=== PATIENT | male | born 1945 | race Caucasian/White ===

== ENCOUNTER → 2017-12-29 10:43 | Outpatient (CLI) | payer OTHER, SELFPAY ==
--- NOTE | 2017-12-29 | DI.RAD.S_ITS ---
PROCEDURE: XR LUMBAR SPINE MIN 4V INDICATIONS: BACK PAIN TECHNIQUE: 5 views of the lumbar spine were acquired, including flexion and extension views. COMPARISON: Former[facility], MR, L-SPINE WITHOUT CONTRAST, 10/22/2016, 16:26. [facility], CR, L-SPINE 2-3 VIEWS, 12/27/2016, 10:26. [facility], CR, L-SPINE 2-3 VIEWS, 01/11/2017, 14:56. Former[facility], CR, L-SPINE 2-3 VIEWS, 02/24/2017, 10:25. Former[facility], CR, L-SPINE 2-3 VIEWS, 07/04/2017, 13:42. FINDINGS: Bones: There is moderate dextroconvex lumbar scoliosis. Postoperative changes are seen, with right-sided pedicle screws at the L4 and L5 levels. There is a vertical fixation rudy. A disc spacer is also seen. No findings of hardware failure or hardware loosening are seen. No displaced fractures are seen. There is moderate to severe disc space narrowing seen at each lumbar level. Endplate irregularity and sclerosis are seen, which are most prominent at the L3-L4 level. Soft tissues: Overlying bowel gas pattern is normal. No suspicious soft tissue calcifications. Atherosclerotic calcification is noted. Flexion/extension: There is limited range of motion, with preserved normal alignment. IMPRESSION: Limited range of motion, without abnormal subluxation. Unremarkable L4-L5 postoperative change. Dextroconvex scoliosis and degenerative changes. Dictated by: Ki Gilliland M.D. on 12/29/2017 at 15:14 Approved by: Ki Gilliland M.D. on 12/29/2017 at 15:20
== END ==
PROVIDERS: Family Provider Family Medicine; PCP Family Medicine; Visit Provider Dentist Orthodontics and Dentofacial Orthopedics
DX: M43.16 Spondylolisthesis, lumbar region (principal); M41.9 Scoliosis, unspecified; Z98.1 Arthrodesis status
CPT/HCPCS: 36415; 72110; 82565; 84520

== ENCOUNTER → 2017-12-29 15:11 | Outpatient (CLI) | payer OTHER, SELFPAY ==
[2017-12-29 16:50] LABS: BUN Creatinine Ratio 10.8 (6-22); Blood Urea Nitrogen 13 mg/dL (9-20); Estimated Glomerular Filt Rate 59.3 mL/min (>60)
== END ==
PROVIDERS: Family Provider Family Medicine; PCP Family Medicine; Visit Provider Physical Medicine & Rehabilitation
DX: Z98.1 Arthrodesis status (principal)
CPT/HCPCS: 36415; 82565; 84520

== ENCOUNTER → 2018-01-06 16:47 | Outpatient (CLI) | payer OTHER, SELFPAY ==
--- NOTE | 2018-01-06 16:50 | DI.MRI.S_ITS ---
PROCEDURE: MR LUMBAR SPINE WO/W CON INDICATIONS: Low back pain TECHNIQUE: Noncontrast sagittal T1 spin echo and T2 fast spin echo, sagittal STIR, axial T1 and T2 fast spin echo through the lumbar spine. In cases with scoliosis, additional coronal T2 fast spin echo may be performed. After the administration of contrast, sagittal and axial T1 spin echo with fat saturation through the lumbar spine. COMPARISON: [facility], MR, L-SPINE WITHOUT CONTRAST, 10/09/2015, 18:09. [facility], MR, L-SPINE WITHOUT CONTRAST, 10/22/2016, 16:26. [facility], CR, XR LUMBAR SPINE MIN 4V, 12/29/2017, 10:33. FINDINGS: Image quality: Excellent. Alignment and curvature: There has mild dextroconvex scoliotic curvature with apex at L3. There is trace retrolisthesis of L1 on L2, L2 on L3, L4 and L5 minimal to mild L3 on L4, measuring 4 mm. Posterior fusion with intervertebral spacer is present at L4-5. Marrow: Marrow is of normal overall signal. No acute vertebral body compression fractures. No suspicious marrow enhancement. Spinal cord: Conus medullaris terminates at the L1 level. Visualized spinal cord demonstrates normal signal, without suspicious enhancement. Paraspinous soft tissues: No paravertebral masses or abnormal enhancement. 19 mm focus of increased T2 signal with irregular margins at the level of the hepatic dome/right hemidiaphragmatic margin. It is incompletely visualized. No priors are available for comparison visualized in this region. It appears to demonstrate enhancement. Discs: Moderate to severe desiccation is present throughout the lumbar spine. T12-L1: Minimal disc bulge without spinal stenosis. Mild to moderate right foraminal narrowing. L1-L2: Mild disc bulge with mild spinal stenosis including a small right lateral/foraminal component. Moderate bilateral foraminal narrowing with facet and ligamentum flavum hypertrophy. Minimal interval progression. L2-L3: Mild disc bulge with moderate spinal stenosis. Moderate to severe left and mild to moderate right foraminal narrowing with facet and ligamentum flavum hypertrophy. No interval change. L3-L4: Mild disc bulge without spinal stenosis. There is severe left and moderate right foraminal narrowing with facet and ligamentum flavum hypertrophy. Nerve root flattening is noted on the left without change. L4-L5: Postsurgical changes are present without spinal stenosis. There is severe right hand moderate left foraminal narrowing, unchanged with flattening on the right. Facet and ligamentum flavum hypertrophy are present. L5-S1: Postsurgical changes are present without spinal stenosis. Moderate hylton and mild left foraminal narrowing facet and ligamentum flavum hypertrophy. No interval change. IMPRESSION: 1. Interval postsurgical changes at L4-5 as above. 2. Multilevel spinal stenosis and foraminal narrowing, overall stable with the exception of the level of L1-L2 as noted above. 3. Irregularly marginated hyperintense focus at the hepatic dome/right hemidiaphragmatic margin as above. No prior exams are available for comparison. It appears to demonstrate enhancement. Further evaluation with CT with contrast is recommended. Dictated by: Raine Walsh M.D. on 01/09/2018 at 8:59 Approved by: Raine Walsh M.D. on 01/09/2018 at 9:12
== END ==
PROVIDERS: Family Provider Family Medicine; PCP Family Medicine; Visit Provider Physical Medicine & Rehabilitation
DX: M48.061 Spinal stenosis, lumbar region without neurogenic claudication (principal); M47.26 Other spondylosis with radiculopathy, lumbar region; M54.5 Low back pain; Z98.1 Arthrodesis status
CPT/HCPCS: 72158; A9579

== ENCOUNTER 2018-01-10 09:02 | Outpatient (CLI) | payer OTHER, SELFPAY ==
--- NOTE | 2018-01-10 09:03 | DI.RAD.S_ITS ---
PROCEDURE: PAIN L/S TRANSFORAMINAL INJECT INDICATIONS: SPINAL STENOSIS FINDINGS: Fluoroscopic spot filming was performed to verify placement of spinal needles at the L5-S1 level(s), as labeled on the films. Appropriate location(s) of the needle tip(s) was confirmed by injection of iodinated contrast. IMPRESSION: Fluoroscopy for pain management. Dictated by: Wandy Joseph M.D. on 01/10/2018 at 16:29 Approved by: Wandy Joseph M.D. on 01/10/2018 at 16:29
[2018-01-10 09:25] VITALS: BP 124/73; PULSE 68; RESP 20; TEMP 36.2; O2SAT 97
--- NOTE | 2018-01-10 10:28 | P.PCN_ITS ---
Procedures Date/Time Date of procedure: 01/10/18 Time of procedure: 10:28 General Procedure description: PROVIDER: Raleigh Stoner DO Operative Note PREOP DIAGNOSIS 1. HNP WITH RADICULAR FEATURES, 2. MULTILEVEL CENTRAL STENOSIS, POST OP DIAGNOSIS 1. HNP WITH RADICULAR FEATURES, 2. MULTILEVEL CENTRAL STENOSIS, PROCEDURES 1. FLUORSCOPICALLY GUIDED CONTRAST CONTROLLED INTERLAMINAR EPIDURAL STEROID INJECTION - L5/S1 PHYSICIAN: Raleigh Stoner, INDICATIONS Ramesh is referred by Dr. Leavitt for treatment of Bilateral Foraminal Stenosis L> R LE symptoms. FINDINGS Multilevel Central Spinal Stenosis with Nerve Root Compression DESCRIPTION OF PROCEDURE Fluoroscopically guided, contrast-controlled L5/S1 translaminar epidural steroid injection. Following denial of allergy and review of potential side effects and complications, including, but not necessarily limited to, infection, allergic reaction, local tissue breakdown, temporary as well as permanent nerve injury, paralysis, stroke and possible , the patient indicated that the patient understood and agreed to proceed. An informed consent document was signed by the patient, witnessed by a nurse, and placed in the patient's chart. Additionally, other treatment options including modalities, medications, and physical therapy were reviewed with the patient. After review of previous anaesthesic history and IV conscious sedation the patient was deemed safe to proceed with todays procedure with IV conscious sedation as ASA class II designation. Safety time-out was performed to confirm patient ID, procedure to be performed and site of procedure. IV sedation was deemed unnecessary and thus not administered by the RN after DO order, the patient remained responsive to all verbal commands. In the prone position, following sterile prep and drape of the lumbar region, the L5/S1 translaminar space was identified fluoroscopically. The skin was anesthetized via a 25-gauge, 1.5-inch needle with 1% lidocaine solution. At this point, a 22-gauge short bevel spinal needle was atraumatically introduced and advanced under fluoroscopic guidance into the region of the L5/S1 translaminar space. Depth was confirmed on lateral view. Radiological data, including multiple fluoroscopic views of the lumbar spine, reveal a spinal needle at the L5/S1 translaminar space. Lateral views then show placement of the needle in the epidural space. Subsequent views show contrast material flowing superiorly and inferiorly in the epidural space. No vascular or intrathecal uptake is observed. At this point, using loss of resistance technique with saline and air, the epidural space was entered. This was confirmed following negative aspiration with injection of approximately 1.5 cc of Isovue 200, showing excellent epidural flow without vascular or intrathecal uptake. At this point, 1 cc of 1 % lidocaine solution combined with 3 cc or 20 mg of dexamethasone and 80mg Depo medrol was injected without incident. The patent tolerated the procedure without signs of symptoms of complications prior to transfer to the recovery area for further monitoring. The patient was then transferred to the recovery area where they were observed for an appropriate period of time after the injection. The patient reported a VAS score of 6 prior to the procedure and a post-procedure VAS of 0. Total Fluoroscopy Time: 11.8 seconds Total Conscious Sedation Time: 24min POST OP INSTRUCTIONS The patient was provided a Pain Log to continue to record their response to the target-specific procedure prior to follow-up visit with their referring physician. Additionally, specific post-injection care instructions and a contact number to our office were provided if concerns arise regarding possible complications associated with the procedure are suspected. Raleigh Stoner DO Complications: none
[2018-01-10 10:32] VITALS: BP 157/80; PULSE 69; RESP 18; O2SAT 99
[2018-01-10 10:37] VITALS: BP 167/77; PULSE 68; RESP 18; O2SAT 99
[2018-01-10 10:40] VITALS: BP 156/72; PULSE 68; RESP 16; O2SAT 96
[2018-01-10] MEDS: BUPIVACAINE 0.25% (PF) VIAL 2 ML INJ (10:41)
[2018-01-10] MEDS: methylPREDNISolone acetate 80 MG/ML VIAL INJ (10:41)
[2018-01-10] MEDS: IOPAMIDOL 15 ML VIAL 3 ML INJ (10:41)
[2018-01-10] MEDS: DEXAMETHASONE 10 MG/ML VIAL 20 MG INJ (10:41)
[2018-01-10 10:47] VITALS: BP 160/59; PULSE 63; RESP 18; O2SAT 98
== END 2018-01-10 10:50 ==
LOC: RAD 09:02
PROVIDERS: Family Provider Family Medicine; PCP Family Medicine; Visit Provider Physical Medicine & Rehabilitation
DX: M51.17 Intervertebral disc disorders with radiculopathy, lumbosacral region (principal); M48.07 Spinal stenosis, lumbosacral region; M47.26 Other spondylosis with radiculopathy, lumbar region; Z98.1 Arthrodesis status
CPT/HCPCS: 62323; 64483; 99152; J1040; J1100; J2250

== ENCOUNTER 2018-02-08 13:30 | Outpatient (CLI) | payer OTHER, SELFPAY ==
--- NOTE | 2018-02-08 13:32 | DI.RAD.S_ITS ---
PROCEDURE: PAIN L/SI FACET INJ/BLK 1STL INDICATIONS: [id number] Bilateral L5/S1 facet joint injection FINDINGS: Fluoroscopic spot filming was performed to verify placement of spinal needles at the L5-S1 level(s), as labeled on the films. Appropriate location(s) of the needle tip(s) was confirmed by injection of iodinated contrast. Dictated by: Wojciech Mcclure M.D. on 02/08/2018 at 15:31 Approved by: Wojciech Mcclure M.D. on 02/08/2018 at 15:32
[2018-02-08 13:35] VITALS: BP 153/70; PULSE 67; RESP 18; TEMP 36.1; O2SAT 98
--- NOTE | 2018-02-08 13:49 | PM.PROC.1 ---
Procedures Date/Time Date of procedure: 02/08/18 Time of procedure: 13:50 General Procedure description: PREOP DIAGNOSIS 1. FACET ARTHROPATHY, 2. AXIAL LBP, 3. MULTILEVEL DDD, POST OP DIAGNOSIS 1. FACET ARTHROPATHY, 2. AXIAL LBP, 3. MULTILEVEL DDD, PROCEDURES 1. FLUORSCOPICALLY GUIDED CONTRAST CONTROLLED FACET JOINT INJECTIONS BILATERAL L5/S1 PHUSICIAN: Raleigh Stoner DO INDICATIONS: Ramesh is referred by Dr. Leavitt for treatment of Axial LBP FINDINGS Multilevel Facet Arthropathy with Clinically significant axial LBP DESCRIPTION OF PROCEDURE Fluoroscopically guided, contrast-controlled bilateral L5/S1 facet joint injections. Following denial of allergy and review of potential side effects and complications, including, but not necessarily limited to, infection, allergic reaction, local tissue breakdown, stroke, temporary or permanent nerve injury, paralysis, and possible , the patient indicated that the patient understood and agreed to proceed. An informed consent document was signed by the patient, witnessed by a nurse, and placed in the patient's chart. Additionally, other treatment options including medications, modalities, and physical therapy were reviewed with the patient. After review of previous anaesthesic history and IV conscious sedation the patient was deemed safe to proceed with todays procedure with IV conscious sedation as ASA class II designation. Safety time-out was performed to confirm patient ID, procedure to be performed and site of procedure. IV sedation was deemed unnecessary administered by the RN after DO order, the patient remained responsive to all verbal commands In the prone position, following sterile prep and drape of the lumbar region, the posterior aspect of the L5/S1 facet joints were identified fluoroscopically. The skin was anesthetized via a 25-gauge 1.5-inch needle with 1% lidocaine solution into the corresponding facet joints. At this point, a 22-gauge 5-inch spinal needle was atraumatically introduced and advanced under fluoroscopic guidance into the corresponding facet joints. Following negative aspiration, injections of approximately 0.2-cc of Isovue 200 confirmed interarticular placement without vascular uptake. The identical procedure was then performed at the L5/S1 facet joints on the left. Radiological data, including multiple fluoroscopic views of the lumbosacral spine, reveal a spinal needle at the L5/S1 facet joints bilaterally. Subsequent views show flow of contrast material both superiorly and inferiorly within the joint space without vascular or intrathecal uptake. At this point, a total of 0.5 cc including a mixture of 0.25cc Marcaine and 0.25cc betamethasone was injected without complication into each of the corresponding facet joints. The patient tolerated the procedure well without signs or symptoms of complications prior to transfer to the recovery area continued monitoring without incident. The patient was then transferred to the recovery area where they were observed for an appropriate period of time after the injection. The patient reported a VAS score of 7 prior to the procedure and a post-procedure VAS of 0. Total Fluoroscopy Time: 21.0 seconds Total conscious sedation time: 24 min POST OP INSTRUCTIONS The patient was provided a Pain Log to continue to record their response to the target-specific procedure prior to follow-up visit with their referring physician. Additionally, specific post-injection care instructions and a contact number to our office were provided if concerns arise regarding possible complications associated with the procedure are suspected. Raleigh Stoner DO Complications: none
[2018-02-08 13:52] VITALS: BP 147/71; PULSE 65; RESP 18; O2SAT 100
[2018-02-08 13:57] VITALS: BP 157/78; PULSE 67; RESP 16; O2SAT 100
[2018-02-08] MEDS: BUPIVACAINE 0.5% (PF) VIAL 2 ML INJ (14:00)
[2018-02-08] MEDS: BETAMETHASONE 30 MG/5 ML MDV 12 MG INJ (14:00)
[2018-02-08] MEDS: IOPAMIDOL 15 ML VIAL 3 ML INJ (14:00)
[2018-02-08] MEDS: LIDOCAINE 1% 20 ML INJ 10 ML INJ (14:00)
[2018-02-08 14:03] VITALS: BP 153/78; PULSE 68; RESP 16; O2SAT 100
--- NOTE | 2018-02-08 14:09 | PC.NURSE ---
moving pt to post op area. no sedation meds given
[2018-02-08 14:10] VITALS: BP 141/65; PULSE 64; RESP 18; O2SAT 100
--- NOTE | 2018-02-08 14:18 | PC.NURSE ---
received pt from Ema DUDLEY, no sedation. pt alert and stable able to get needs met. resumed monitoring.
== END 2018-02-08 14:21 ==
LOC: RAD 13:32
PROVIDERS: PCP Family Medicine; Visit Provider Physical Medicine & Rehabilitation
DX: M47.817 Spondylosis without myelopathy or radiculopathy, lumbosacral region (principal); M51.37 Other intervertebral disc degeneration, lumbosacral region; M54.5 Low back pain; Z98.1 Arthrodesis status
CPT/HCPCS: 64493; J0702

== ENCOUNTER 2018-03-21 12:15 | Outpatient (CLI) | payer OTHER, SELFPAY ==
[2018-03-21] VITALS (8 sets, daily range): BP systolic 120–160; BP diastolic 59–87; PULSE 67–73; RESP 12–18; TEMP 36.4; O2SAT 99–100
--- NOTE | 2018-03-21 12:16 | DI.RAD.S_ITS ---
PROCEDURE: PAIN L/S FACET INJ/BLK 1ST MATTHEW COMPARISON: [facility], CR, XR LUMBAR SPINE MIN 4V, 12/29/2017, 10:33. INDICATIONS: SPONDYLOSIS FINDINGS: Fluoroscopic spot filming was performed to verify placement of spinal needles at the L3-L4 level(s), as labeled on the films. Appropriate location(s) of the needle tip(s) was confirmed by injection of iodinated contrast. Dictated by: Wojciech Mcclure M.D. on 03/21/2018 at 14:09 Approved by: Wojciech Mcclure M.D. on 03/21/2018 at 14:12
[2018-03-21] MEDS: MIDAZOLAM 5 MG/5 ML VIAL IV (12:55)
--- NOTE | 2018-03-21 13:10 | PC.NURSE ---
pt tolerated procedure well, able to get off the table with minimal assist, legs a little wobbly under him but he is able to bear weight. Transferred pt to pre procedure room via Wheelchair for continued monitoring with Ema DUDLEY
--- NOTE | 2018-03-21 13:14 | P.PCN_ITS ---
Procedures Date/Time Date of procedure: 03/21/18 Time of procedure: 13:13 General Procedure description: PREOP DIAGNOSIS 1. FACET ARTHROPATHY 2. AXIAL LBP 3. MULTILEVEL DDD POST OP DIAGNOSIS 1. FACET ARTHROPATHY 2. AXIAL LBP 3. MULTILEVEL DDD PROCEDURES 1. FLUORSCOPICALLY GUIDED CONTRAST CONTROLLED FACET JOINT INJECTIONS BILATERAL L3/4, L4/5 PHYSICIAN: Raleigh Stoner DO INDICATIONS: Ramesh is referred by Dr. Leavitt for treatment of Axial LBP FINDINGS Multilevel Facet Arthropathy with Clinically significant axial LBP DESCRIPTION OF PROCEDURE Fluoroscopically guided, contrast-controlled bilateral L3/4 facet joint injections. Following denial of allergy and review of potential side effects and complications, including, but not necessarily limited to, infection, allergic reaction, local tissue breakdown, stroke, temporary or permanent nerve injury, paralysis, and possible , the patient indicated that the patient understood and agreed to proceed. An informed consent document was signed by the patient, witnessed by a nurse, and placed in the patient's chart. Additionally, other treatment options including medications, modalities, and physical therapy were reviewed with the patient. After review of previous anaesthesic history and IV conscious sedation the patient was deemed safe to proceed with todays procedure with IV conscious sedation as ASA class II designation. Safety time-out was performed to confirm patient ID, procedure to be performed and site of procedure. IV sedation was accomplished with a combination of 3mg of Versed was administered by the RN after DO order, titrated to patient comfort during the course of the procedure while the patient remained responsive to all verbal commands. In the prone position, following sterile prep and drape of the lumbar region, the posterior aspect of the L3/4 facet joints were identified fluoroscopically. The skin was anesthetized via a 25-gauge 1.5-inch needle with 1% lidocaine solution into the corresponding facet joints. At this point, a 22-gauge 3.5- inch spinal needle was atraumatically introduced and advanced under fluoroscopic guidance into the corresponding facet joints. Following negative aspiration, injections of approximately 0.2-cc of Isovue 200 confirmed interarticular placement without vascular uptake. The identical procedure was then performed at the L3/4 facet joints on the left. Radiological data, including multiple fluoroscopic views of the lumbosacral spine, reveal a spinal needle at the L3/4 facet joints bilaterally. Subsequent views show flow of contrast material both superiorly and inferiorly within the joint space without vascular or intrathecal uptake. At this point, a total of 0.5 cc including a mixture of 0.25 cc Marcaine and 0.25 cc betamethasone was injected without complication into each of the corresponding facet joints. The patient tolerated the procedure well without signs or symptoms of complications prior to transfer to the recovery area continued monitoring without incident. The patient was then transferred to the recovery area where they were observed for an appropriate period of time after the injection. The patient reported a VAS score of 7 prior to the procedure and a post-procedure VAS of 0. Total Fluoroscopy Time: 20.3 seconds Total Conscious Sedation Time: 24min POST OP INSTRUCTIONS The patient was provided a Pain Log to continue to record their response to the target-specific procedure prior to follow-up visit with their referring physician. Additionally, specific post-injection care instructions and a contact number to our office were provided if concerns arise regarding possible complications associated with the procedure are suspected. Raleigh Stoner, Complications: none
[2018-03-21] MEDS: BUPIVACAINE 0.5% (PF) VIAL 2 ML INJ (13:23)
[2018-03-21] MEDS: IOPAMIDOL 15 ML VIAL 3 ML INJ (13:23)
[2018-03-21] MEDS: BETAMETHASONE 30 MG/5 ML MDV 12 MG INJ (13:23)
[2018-03-21] MEDS: LIDOCAINE 1% 20 ML INJ 5 ML INJ (13:23)
--- NOTE | 2018-03-22 17:11 | PC.NURSE ---
Follow up call made for one day post injection. I wasn't able to talk to the patient directly as he was unavailable but his told me he was doing so much better she took him [place] shopping in [place].
== END 2018-03-21 13:47 | disposition home or self-care (01) ==
PROVIDERS: PCP Family Medicine; Visit Provider Physical Medicine & Rehabilitation
DX: M47.816 Spondylosis without myelopathy or radiculopathy, lumbar region (principal); M51.36 Other intervertebral disc degeneration, lumbar region; M54.5 Low back pain; Z98.1 Arthrodesis status
CPT/HCPCS: 64493; 99152; J0702; J2250

== ENCOUNTER 2018-05-02 07:01 | Outpatient (CLI) | payer OTHER, SELFPAY ==
[2018-05-02] VITALS (12 sets, daily range): BP systolic 99–136; BP diastolic 47–69; PULSE 68–85; RESP 16–18; TEMP 36; O2SAT 97–100
--- NOTE | 2018-05-02 07:02 | DI.RAD.S_ITS ---
PROCEDURE: PAIN L/S MED/LAT N RFA INDICATIONS: SPONDYLOSIS FINDINGS: Fluoroscopic spot filming was performed to verify placement of spinal needles. Appropriate location(s) of the needle tip(s) was confirmed by injection of iodinated contrast. IMPRESSION: Fluoroscopy for pain management. Dictated by: Wandy Joseph M.D. on 05/02/2018 at 10:48 Approved by: Wandy Joseph M.D. on 05/02/2018 at 10:54
[2018-05-02] MEDS: MIDAZOLAM 5 MG/5 ML VIAL IV (08:30)
[2018-05-02] MEDS: fentaNYL 100 MCG/2 ML INJ IV (08:32)
[2018-05-02] MEDS: LIDOCAINE 1% 20 ML INJ 10 ML INJ (08:45)
[2018-05-02] MEDS: BUPIVACAINE 0.5% (PF) VIAL 5 ML INJ (08:45)
--- NOTE | 2018-05-02 09:06 | PC.NURSE ---
ASSISTING PT OFF TABLE AND TRANSPORTING TO POST PROC AREA IN STABLE CONDITION
--- NOTE | 2018-05-02 09:24 | P.PCN_ITS ---
Procedures Date/Time Date of procedure: 05/02/18 Time of procedure: 09:18 General Procedure description: PREOP DIAGNOSIS 1. RECALCITRANT FACET ARTHROPATHY, POST OP DIAGNOSIS 1. RECALCITRANT FACET ARTHROPATHY PROCEDURES 1. BILATERAL L3, L4 MEDIAL BRANCH RADIOFREQUENCY NEUROTOMY PHYSICIAN: Raleigh Stoner DO INDICATIONS: Gene is referred by Dr. Roland for treatment of facet arthropathy. DESCRIPTION OF PROCEDURE Bilateral L3, L4 medial branch radiofrequency neurotomy The patient is well known to this clinic having undergone previous facet injections with good but temporary relief. The patient has experienced appropriate, concordant relief with previous facet and median branch blocks but the patient's pain has been recalcitrant to further conservative measures. Therefore, based upon the patient's relief and persistent symptoms, the patient is considered an appropriate candidate for facet rhizotomy. All of the patient' s questions regarding the risks versus benefits of the procedure, including, but not limited to, bleeding, infection, temporary as well as lasting nerve injury, paralysis, stroke, and , as well treatment alternatives were answered to satisfaction. After obtaining informed consent, denial of pertinent drug allergies, as well as being made aware of the potential risks of bleeding, infection, spinal cord trauma, paralysis, temporary and permanent nerve damage, seizure, stroke, and possible , the patient was brought to the fluoroscopy suite and positioned prone on the fluoroscopy table. The lumbar region was prepped with Betadine and covered with a fenestrated drape in the usual sterile fashion. Appropriate monitors applied including pulse oximeter, pulse, and blood pressure for regular monitoring throughout the procedure. After review of previous anaesthesic history and IV conscious sedation the patient was deemed safe to proceed with todays procedure with IV conscious sedation as ASA class II designation. Safety time-out was performed to confirm patient ID, procedure to be performed and site of procedure. IV sedation was accomplished with a combination of 5mg of Versed and 50mcg of Fentanyl administered by the RN after DO order, titrated to patient comfort during the course of the procedure while the patient remained responsive to all verbal commands. After local infiltration using 1% lidocaine, under fluoroscopic guidance, a 10- cm RF insulated needle with a 10-mm active tip was positioned parallel to the junction of the right the superior articulating process where the L3 medial branch resides. Needle placement was confirmed with motor stimulation of .5v on the right which produced local stimulation without radicular component. The stimulation was then increased to 1.5v with, once again, only local multifidus stimulation without radicular component. This was then followed by two discreet lesions performed at 80 degrees Celsius for 90 seconds each. The needle was then removed and the identical procedure was performed along the length of the right L4 medial branch with motor stimulation at .7v. The procedure was then refocused to the left L3 and L4 medial branches under very similar conditions. The patient tolerated the procedure well without signs or symptoms of complications prior to transfer to the recovery area continued monitoring without incident. The patient was then transferred to the recovery area where they were observed for an appropriate period of time after the injection. The patient reported a VAS score of 9 prior to the procedure and a post-procedure VAS of 0. Total Fluoroscopy Time: 22.7 seconds Total Conscious Sedation Time: 34min POST OP INSTRUCTIONS The patient was provided a Pain Log to continue to record the patient's response to the target-specific procedure prior to the patient's follow-up visit with the referring physician. Additionally, specific post-injection care instructions and a contact number to our office were provided if concerns arise regarding possible complications associated with the procedure are suspected. Raleigh Stoner DO Complications: none
--- NOTE | 2018-05-02 09:26 | PC.NURSE ---
50MCG FENTANYL ORDER IS DUPLICATE ORDER. MED NOT GIVEN ON THAT ORDER, MAR WOULD NOT GIVE ME OK BUTTON TO CHART NOT GIVEN.
--- NOTE | 2018-05-02 09:29 | PC.NURSE ---
pt returned via wheelchair from post procedure awake and alert, able to move from wheelchair to chair on own power, resumed monitoring from Ema DUDLEY.
--- NOTE | 2018-05-03 16:28 | PC.NURSE ---
FOLLOW UP CALL MADE. PT STATES HE FEELS FINE AND DENIES QUESTIONS OR CONCERNS. HE DID BRING UP THAT HE CAN NOT MAKE HIS FOLLOW UP APPT. ON 05/19 HE WILL BE OUT OF TOWN. I TOOK THAT MSG AND WILL RELAY IT TO SHANNON.
== END 2018-05-02 09:36 ==
LOC: RAD 07:02
PROVIDERS: PCP Family Medicine; Visit Provider Physical Medicine & Rehabilitation
DX: M47.817 Spondylosis without myelopathy or radiculopathy, lumbosacral region (principal); M47.816 Spondylosis without myelopathy or radiculopathy, lumbar region
CPT/HCPCS: 64635; 64636; 99152; 99153; J2250; J3010

== ENCOUNTER 2018-07-04 07:02 | Outpatient (CLI) | payer OTHER, SELFPAY ==
[2018-07-04] VITALS (11 sets, daily range): BP systolic 97–140; BP diastolic 50–76; PULSE 66–76; RESP 16–18; TEMP 35.9; O2SAT 98–100
--- NOTE | 2018-07-04 07:05 | DI.RAD.S_ITS ---
PROCEDURE: PAIN L/S MED/LAT N RFA BILAT INDICATIONS: SPONDYLOSIS FINDINGS: Fluoroscopic spot filming was performed to verify placement of spinal needles at the L5-S1 level(s), as labeled on the films. Appropriate location(s) of the needle tip(s) was confirmed by injection of iodinated contrast. IMPRESSION: Intraoperative fluoroscopy for L5 and S1 rhizotomy. Dictated by: Marialuisa Caceres M.D. on 07/04/2018 at 12:49 Approved by: Marialuisa Caceres M.D. on 07/04/2018 at 12:49
[2018-07-04] MEDS: MIDAZOLAM 5 MG/5 ML VIAL IV (08:31)
[2018-07-04] MEDS: fentaNYL 100 MCG/2 ML INJ 50 MCG IV (08:44)
[2018-07-04] MEDS: BUPIVACAINE 0.5% (PF) VIAL 2 ML INJ (08:47)
[2018-07-04] MEDS: LIDOCAINE 1% 20 ML INJ 10 ML INJ (08:48)
--- NOTE | 2018-07-04 09:08 | PC.NURSE ---
ASSISTING PT OFF TABLE AND TRANSPORTING TO POST PROC AREA IN STABLE CONDITION
--- NOTE | 2018-07-04 09:14 | P.PCN_ITS ---
Procedures Date/Time Date of procedure: 07/04/18 Time of procedure: 09:13 General Procedure description: Procedure Note PREOP DIAGNOSIS 1. RECALCITRANT FACET ARTHROPATHY, POST OP DIAGNOSIS 1. RECALCITRANT FACET ARTHROPATHY, PROCEDURES 1. BILATERAL L5 MEDIAL BRANCH RADIOFREQUENCY NEUROTOMY AND BILATERAL S1 DORSAL RAMUS BRANCH RADIOFREQUENCY NEUROTOMY. PHYSICIAN: Raleigh Stoner, DO INDICATIONS Ramesh is referred by Dr. Leavitt for treatment of facet arthropathy. DESCRIPTION OF PROCEDURE Bilateral L5 medial branch radiofrequency neurotomy and bilateral S1 dorsal ramus branch radiofrequency neurotomy under fluoroscopy with conscious sedation. The patient is well known to this clinic having undergone previous facet injections with good but temporary relief. The patient has experienced appropriate, concordant relief with previous facet and median branch blocks but the patient's pain has been recalcitrant to further conservative measures. Therefore, based upon the patient's relief and persistent symptoms, the patient is considered an appropriate candidate for facet rhizotomy. All of the patient's questions regarding the risks versus benefits of the procedure, including, but not limited to, bleeding, infection, temporary as well as lasting nerve injury, paralysis, stroke, and , as well treatment alternatives were answered to satisfaction. After obtaining informed consent, denial of pertinent drug allergies, as well as being made aware of the potential risks of bleeding, infection, spinal cord trauma, paralysis, temporary and permanent nerve damage, seizure, stroke, and possible , the patient was brought to the fluoroscopy suite and positioned prone on the fluoroscopy table. The lumbar region was prepped with Betadine and covered with a fenestrated drape in the usual sterile fashion. Appropriate monitors applied including pulse oximeter, pulse, and blood pressure for regular monitoring throughout the procedure. After review of previous anaesthesic history and IV conscious sedation the patient was deemed safe to proceed with todays procedure with IV conscious sedation as ASA class II designation. Safety time-out was performed to confirm patient ID, procedure to be performed and site of procedure. IV sedation was accomplished with a combination of 3mg of Versed and 50mcg of Fentanyl was administered by the RN after DO order, titrated to patient comfort during the course of the procedure while the patient remained responsive to all verbal commands. After local infiltration using 1% lidocaine, under fluoroscopic guidance, a 10- cm RF insulated needle with a 10-mm active tip was positioned parallel to the junction of the bilateral sacral ala and the superior articulating process where the S1 dorsal ramus resides. Needle placement was confirmed with motor stimulation of .5v on the right; motor stimulation of .6v on the left, which produced local stimulation without radicular component. The stimulation was then increased to 1.5v with, once again, only local multifidus stimulation without radicular component. This was then followed by two discreet lesions performed at 80 degrees Celsius for 90 seconds each. The needle was then removed and the identical procedure was performed along the length of the bilateral L5 medial branch with motor stimulation at .7v on the right; motor stimulation at .6v on the left. The patient tolerated the procedure well without signs or symptoms of complications prior to transfer to the recovery area continued monitoring without incident. The patient was then transferred to the recovery area where they were observed for an appropriate period of time after the injection. The patient reported a VAS score of 9 prior to the procedure and a post- procedure VAS of 0. Total Fluoroscopy Time: 32.1 seconds Total Conscious Sedation Time: 46min POST OP INSTRUCTIONS The patient was provided a Pain Log to continue to record the patient's response to the target-specific procedure prior to the patient's follow-up visit with the referring physician. Additionally, specific post-injection care instructions and a contact number to our office were provided if concerns arise regarding possible complications associated with the procedure are suspected. Raleigh Stoner DO Complications: none
--- NOTE | 2018-07-04 10:28 | PC.NURSE ---
pt finished procedure and arrived to pre procedure room at 0915, legs are a little whobbly and he had difficulty transferring from w/c to chair. Resumed monitoring from Ema DUDLEY. at 1010 pt stood up and still legs are whobbly, pt attempted to walk but couldn't. Again he tried at 1028 and took a few steps but he still cannot maintain balance on his legs. Will continue to have him wait as he is planning to go out to breakfast when he leaves here.
--- NOTE | 2018-07-05 12:54 | PC.NURSE ---
FOLLOW UP CALL MADE, PT STATES I FEEL GREAT. DENIES QUESTIONS/CONCERNS.
== END 2018-07-04 10:39 ==
LOC: RAD 07:04
PROVIDERS: PCP Family Medicine; Visit Provider Physical Medicine & Rehabilitation
DX: M47.817 Spondylosis without myelopathy or radiculopathy, lumbosacral region (principal)
CPT/HCPCS: 64635; 64636; 99152; 99153; J2250; J3010

== ENCOUNTER → 2018-09-19 10:20 | Outpatient (CLI) | payer OTHER, SELFPAY | PROVIDERS: PCP Family Medicine; Visit Provider Family Medicine | DX: R35.0 Frequency of micturition (principal) | CPT/HCPCS: 87077; 87086; 87186 ==

== ENCOUNTER → 2018-11-20 10:46 | Outpatient (CLI) | payer OTHER, SELFPAY ==
[2018-11-20 10:52] LABS: Bacteria Urine None Seen; RBC Urine None Seen (0-5/HPF)
[2018-11-20 11:29] LABS: Appearance Urine UA CLEAR; Bilirubin Urine UA NEGATIVE (NEGATIVE); Color Urine UA YELLOW; Glucose Urine UA NEGATIVE (Negative); Ketones Urine UA NEGATIVE (NEGATIVE); Leukocyte Esterase Urine UA TRACE (NEGATIVE); Nitrite Urine UA NEGATIVE (Negative); Occult Blood Urine UA NEGATIVE (Negative); Protein Urine UA NEGATIVE (Negative); Urobilinogen Urine UA 0.2 E.U./dL (0.2)
[2018-11-20 11:37] LABS: Culture Indicated Urine Cult Not Indicated; Squamous Epithelial Cell Urine 0-1 /HPF (0-5/HPF); WBC Urine 0-1/HPF (0-5/HPF)
== END ==
PROVIDERS: PCP Family Medicine; Visit Provider Family Medicine
DX: N41.0 Acute prostatitis (principal)
CPT/HCPCS: 81001

== ENCOUNTER 2019-06-14 06:59 | Day surgery (SDC) | payer MEDICARE, SELFPAY ==
[2019-06-14 07:46] VITALS: BP 155/79; PULSE 70; RESP 20; TEMP 36.8; O2SAT 99; BMI 18.7
[2019-06-14] MEDS: PROPARACAINE 0.5% OPHTH SOL 2 DROPS EYE-OP (08:00)
[2019-06-14] MEDS: CATARACT EYE COMPOUND (10 DROPS/SYRINGE) 3 DROPS EYE-OP (08:05)
[2019-06-14] MEDS: MOXIFLOXACIN INJ 5 MG/ML VIAL EYE-OP (09:07)
[2019-06-14] MEDS: CHONDROIDTIN/SOD HYALURONATE 1.05 ML SYRINGE INTRAOCULA (09:08)
[2019-06-14] MEDS: PHENYLEPHRINE/LIDOCAINE VIAL (OR) 0.2 ML EYE-OP (09:08)
[2019-06-14] MEDS: BALANCED SALT IRRIG SOLN NO.2 500 ML, EPINEPHrine 1 MG IRR (09:08)
[2019-06-14] MEDS: LIDOCAINE 2% INJ SDV 2 ML INJ (09:08)
[2019-06-14] MEDS: BALANCED SALT IRRIG SOLN NO.2 15 ML 5 ML IRR (09:09)
[2019-06-14] MEDS: TETRACAINE 0.5% OPHTH DROPS 4 ML 2 DROPS EYE-OP (09:09)
--- NOTE | 2019-06-14 09:34 | PM.OP.1 ---
Procedure & Clinicians Procedure: Cataract extraction with intraocular lens implant, right. Same procedure as scheduled: Yes Indications: Visually significant age related nuclear sclerosis, right Surgeon: Sonny Rashid Click Yes if Unassisted: Yes Anesthesia Type: MAC +/- Operative Notes Procedure in detail: The patient was brought to the operating suite. The correct patient, surgical site and lens were confirmed. 0.5 % tetracaine drops were placed in the right eye. The patient was prepped and draped in the typical sterile manner. A lid speculum was placed in the eye. 2% lidocaine was placed on the eye. A paracentesis port was created with a side-port blade. 0.1 mL of 1% preservative free lidocaine with phenylephrine was injected into the anterior chamber. Viscoelastic was injected into the anterior chamber. A 2.6mm keratome was used to create a clear corneal temporal incision. Cystotome and Utrata forceps were used to create a continuous curvilinear capsulorrhexis. Balanced salt solution was used to hydrodissect the nucleus. Phacoemulsification was used to remove the lens. The capsular bag was inflated with viscoelastic. A Willoughby ZCBOO +18.5D lens was inserted into the capsule. Viscoelastic was removed and the wound hydrated. The wound was found to be leak free and the eye was assessed to be at normal physiologic pressure. 0.1mL Moxifloxacin (5mg/mL) preservative free was injected into the anterior chamber. The lid speculum was removed and the patient left the operating room in excellent condition. Complications: none Post-operative Condition: stable Disposition: same day surgery
[2019-06-14 09:43] VITALS: BP 146/68; PULSE 72; RESP 16; TEMP 36.7; O2SAT 99
== END 2019-06-14 10:00 | disposition home or self-care (01) ==
LOC: OR 07:01
PROVIDERS: PCP Family Medicine; Referring Provider Ophthalmology; Visit Provider Ophthalmology
PROC: (CPT 66984; principal; 2019-06-14 08:15)
DX: H25.11 Age-related nuclear cataract, right eye (principal); J44.9 Chronic obstructive pulmonary disease, unspecified; I10 Essential (primary) hypertension; F17.210 Nicotine dependence, cigarettes, uncomplicated
CPT/HCPCS: 66984; J0171; J2250

== ENCOUNTER → 2019-10-22 14:52 | Outpatient (CLI) | payer MEDICARE, SELFPAY ==
[2019-10-23 09:48] LABS: COVID19 Sendout Not Detected (Not Detect)
== END ==
PROVIDERS: PCP Family Medicine; Visit Provider Student in an Organized Health Care Education/Training Program
DX: Z01.812 Encounter for preprocedural laboratory examination (principal)
CPT/HCPCS: 87635

== ENCOUNTER 2019-10-25 07:28 | Day surgery (SDC) | payer MEDICARE, SELFPAY ==
[2019-10-25] MEDS: PROPARACAINE 0.5% OPHTH SOL 2 DROPS EYE-OP (08:20)
[2019-10-25] MEDS: CATARACT EYE COMPOUND (10 DROPS/SYRINGE) 3 DROPS EYE-OP (08:20)
[2019-10-25 08:21] VITALS: BP 167/71; PULSE 65; RESP 16; TEMP 36.3; O2SAT 99; BMI 18.1
--- NOTE | 2019-10-25 08:44 | SUR.OPER ---
Supine on eye stretcher, head on extension cradle secured with tape. Arms tucked at sides with blanket. Pillow under knees.
--- NOTE | 2019-10-25 09:01 | PM.PREOP ---
Pre-operative Note COVID-19 COVID-19 status: Negative Result date/Date tested (Pos, Neg/Pending): 10/22/19 Interval Note History & Physical reviewed/Exam performed by Physician: Yes Changes to H&P: No
[2019-10-25] MEDS: TETRACAINE 0.5% OPHTH DROPS 4 ML 2 DROPS EYE-OP (09:29)
[2019-10-25] MEDS: LIDOCAINE 2% INJ SDV 2 ML INJ (09:30)
[2019-10-25] MEDS: MOXIFLOXACIN INJ 5 MG/ML VIAL EYE-OP (09:30)
[2019-10-25] MEDS: PHENYLEPHRINE/LIDOCAINE VIAL (OR) 0.2 ML EYE-OP (09:31)
[2019-10-25] MEDS: BALANCED SALT IRRIG SOLN NO.2 500 ML, EPINEPHrine 1 MG IRR (09:31)
[2019-10-25] MEDS: CHONDROIDTIN/SOD HYALURONATE 1.05 ML SYRINGE INTRAOCULA (09:32)
--- NOTE | 2019-10-25 09:52 | PM.OP.1 ---
Procedure & Clinicians Procedure: Cataract extraction with intraocular lens implant, left. Same procedure as scheduled: Yes Indications: Visually significant age related nuclear sclerosis Surgeon: Sonny Rashid Click Yes if Unassisted: Yes Anesthesia Type: MAC +/- Operative Notes Procedure in detail: The patient was brought to the operating suite. The correct patient, surgical site and lens were confirmed. 0.5 % tetracaine drops were placed in the left eye and the eye was marked with a corneal reference marker. The patient was prepped and draped in the typical sterile manner. A lid speculum was placed in the eye. 2% lidocaine was placed on the eye. A paracentesis port was created with a side-port blade. 0.1 mL of 1% preservative free lidocaine with phenylephrine was injected into the anterior chamber. Viscoelastic was injected into the anterior chamber. A 2.6mm keratome was used to create a clear corneal temporal incision. Cystotome and Utrata forceps were used to create a continuous curvilinear capsulorrhexis. Balanced salt solution was used to hydrodissect the nucleus. Phacoemulsification was used to remove the lens. The capsular bag was inflated with viscoelastic. A Willoughby [id number] +18.0D lens was inserted into the capsule and rotated to 156 degrees. Viscoelastic was removed and the wound hydrated. The wound was found to be leak free and the eye was assessed to be at normal physiologic pressure. 0.1mL Moxifloxacin (5mg/mL) preservative free was injected into the anterior chamber. The lens was found to be in good position at 156 degrees. The lid speculum was removed and the patient left the operating room in excellent condition. Complications: none Post-operative Condition: stable Disposition: same day surgery
[2019-10-25 10:30] VITALS: BP 173/79; PULSE 70; RESP 16; TEMP 36.7; O2SAT 100
== END 2019-10-25 10:30 | disposition home or self-care (01) ==
LOC: OR 07:31
PROVIDERS: PCP Family Medicine; Referring Provider Ophthalmology; Visit Provider Ophthalmology
PROC: (CPT 66984; principal; 2019-10-25 09:00)
DX: H25.12 Age-related nuclear cataract, left eye (principal); J44.9 Chronic obstructive pulmonary disease, unspecified; I10 Essential (primary) hypertension
CPT/HCPCS: 66984; J0171; J2250; V2787

== ENCOUNTER → 2020-01-04 12:13 | Outpatient (CLI) | payer MEDICARE, SELFPAY ==
[2020-01-04 12:21] LABS: RBC Urine None Seen (0-5/HPF)
[2020-01-04 12:40] LABS: Add Manual Diff / Slide Review NO; Basophils Absolute Auto 0 /uL (0-100); Basophils Percent Auto 0.5 % (0-2); Eosinophils Absolute Auto 200 /uL (0-450); Hematocrit 42.3 % (41-53); Hemoglobin 14.7 g/dL (13.5-17.5); Lymphocytes Absolute Auto 1800 /uL (1100-4500); Lymphocytes Percent Auto 22.7 % (25-40); Mean Corpuscular HGB Conc 34.7 % (30-36); Mean Corpuscular Hemoglobin 32.7 PG (26-34); Mean Corpuscular Volume 94.4 fL (80-100); Monocytes Absolute Auto 1000 /uL (0-900); Monocytes Percent Auto 12.6 % (3-14); Neutrophils Absolute Auto 4900 /uL (1500-7000); Neutrophils Percent Auto 61.2 % (50-75); Platelet Count 280 X10^3/uL (150-400); Red Blood Cell Count 4.48 X10^6/uL (4.5-5.9); Red Cell Distribution Width 13.4 % (11.6-14.8)
[2020-01-04 12:51] LABS: Appearance Urine UA CLOUDY; Bilirubin Urine UA NEGATIVE (NEGATIVE); Color Urine UA YELLOW; Glucose Urine UA NEGATIVE (Negative); Ketones Urine UA NEGATIVE (NEGATIVE); Leukocyte Esterase Urine UA 2+ (NEGATIVE); Nitrite Urine UA POSITIVE (Negative); Occult Blood Urine UA NEGATIVE (Negative); Protein Urine UA NEGATIVE (Negative); Urobilinogen Urine UA 0.2 E.U./dL (0.2)
[2020-01-04 13:16] LABS: Amorphous Sediment Urine 2+; Bacteria Urine Many (>30); Squamous Epithelial Cell Urine 0-1 /HPF (0-5/HPF); WBC Urine 10-30/HPF (0-5/HPF)
[2020-01-04 13:17] LABS: Culture Indicated Urine Specimen Cultured; Mucus Urine 1+ (Negative)
[2020-01-04 13:28] LABS: Alanine Aminotransferase 12 IU/L (<50); Albumin Globulin Ratio 1.3 (1.0-2.8); Alkaline Phosphatase 68 U/L (38-126); Aspartate Aminotransferase 29 IU/L (17-59); BUN Creatinine Ratio 9.6 (6-22); Bilirubin Total 0.5 mg/dL (0.2-1.3); Blood Urea Nitrogen 10 mg/dL (9-20); Calcium 9.8 mg/dL (8.4-10.2); Carbon Dioxide 30 mmol/L (22-32); Chloride 100 mmol/L (98-107); Cholesterol 157 mg/dL (140-199); Estimated Glomerular Filt Rate > 60.0 mL/min (>60); Glucose 101 mg/dL (80-110); HDL Cholesterol 72 mg/dL (40-60); HEMOLYSIS < 15 (0-50); LDL Cholesterol Calculated 71 mg/dL (<100); Sodium 137 mmol/L (137-145); Triglycerides 68 mg/dL (35-150)
[2020-01-04 13:55] LABS: TSH w/ Reflex to FT4 1.73 uIU/mL (0.47-4.68)
== END ==
PROVIDERS: PCP Family Medicine; Referring Provider Family Medicine; Visit Provider Family Medicine
DX: E78.5 Hyperlipidemia, unspecified (principal); R53.83 Other fatigue; R30.0 Dysuria
CPT/HCPCS: 36415; 80053; 80061; 81001; 84443; 85025; 87077; 87086

== ENCOUNTER → 2020-03-03 16:34 | Outpatient (CLI) | payer MEDICARE, SELFPAY | PROVIDERS: PCP Family Medicine; Visit Provider Family Medicine | DX: R30.0 Dysuria (principal) | CPT/HCPCS: 87077; 87086 ==

== ENCOUNTER → 2021-02-20 13:57 | Outpatient (CLI) | payer MEDICARE, SELFPAY ==
[2021-02-20 15:30] LABS: Appearance Urine UA SL CLOUDY; Bilirubin Urine UA NEGATIVE (NEGATIVE); Color Urine UA YELLOW; Glucose Urine UA NEGATIVE (Negative); Ketones Urine UA NEGATIVE (NEGATIVE); Leukocyte Esterase Urine UA 3+ (NEGATIVE); Nitrite Urine UA NEGATIVE (Negative); Occult Blood Urine UA TRACE-LYSED (Negative); Protein Urine UA TRACE (Negative); Urobilinogen Urine UA 0.2 E.U./dL (0.2)
[2021-02-20 16:28] LABS: Bacteria Urine Many (>30); Culture Indicated Urine Specimen Cultured; RBC Urine 1-5/HPF (0-5/HPF); WBC Urine 30-100/HPF (0-5/HPF)
== END ==
PROVIDERS: PCP Family Medicine; Referring Provider Family Medicine; Visit Provider Family Medicine
DX: R30.0 Dysuria (principal); M54.9 Dorsalgia, unspecified; R35.0 Frequency of micturition; R39.15 Urgency of urination
CPT/HCPCS: 81001; 87077; 87086

== ENCOUNTER → 2022-07-28 16:37 | Outpatient (CLI) | payer MEDICARE, SELFPAY ==
--- NOTE | 2022-07-28 16:38 | DI.RAD.S_ITS ---
PROCEDURE: XR LUMBAR SPINE 2-3V INDICATIONS: back pain TECHNIQUE: 3 views of the lumbar spine were acquired. COMPARISON: [facility], OLIVIA, XR LUMBAR SPINE MIN 4V, 12/29/2017, 10:33. [facility], OLIVIA, L-SPINE 2-3 VIEWS, 07/04/2017, 13:42. FINDINGS: Bones: 5 [id number] vertebrae are present. Right convexity curvature centered at L3 present as before. Postoperative changes the lumbar spine redemonstrated with right pedicle screws and fixation rudy and disc spacer at L4-L5. Overlying bowel gas makes evaluation of the vertebral bodies difficult. No obvious/severe vertebral body compression fracture identified. Multilevel degenerative changes of the lumbar spine are present. Soft tissues: Vascular calcifications are present. IMPRESSION: Multilevel degenerative changes of the lumbar spine. Lower lumbar spine postsurgical changes present as before. If symptoms persist, follow-up radiographs and/or CT or MRI may be helpful for further evaluation. Dictated by: Pablo French M.D. on 07/29/2022 at 11:17 Approved by: Pablo French M.D. on 07/29/2022 at 11:25
--- NOTE | 2022-07-28 16:38 | DI.US.S_ITS ---
PROCEDURE: US ABDOMEN LIMITED INDICATIONS: liver cyst TECHNIQUE: Real-time focused scanning was performed of the abdomen, with image documentation. COMPARISON: None. FINDINGS: The liver is normal in size and demonstrates normal overall echotexture. There is that echogenic hemangioma seen involving the right liver that measures up to 17 mm. No abnormal vascularity or shadowing can be seen. Within the right liver, there is also a 19 mm cyst seen. This cyst demonstrates no abnormal vascularity. Mild septation can be seen. No findings of gallstones or sludge are seen. The gallbladder wall is not thickened, measuring 3 mm or less. No specific pericholecystic fluid is seen. The sonographic Taylor sign is negative. There is no biliary dilatation, the common bile duct measures 6 mm. No significant pancreatic abnormality is seen on these images. IMPRESSION: No significant liver abnormality is seen. Note is made of a 17 mm hemangioma and a 19 mm mildly septated cyst within the right liver. Dictated by: Ki Gilliland M.D. on 07/29/2022 at 9:58 Approved by: Ki Gilliland M.D. on 07/29/2022 at 10:00
== END ==
PROVIDERS: PCP Family Medicine; Referring Provider Family Medicine; Visit Provider Family Medicine
DX: D18.09 Hemangioma of other sites (principal); K76.89 Other specified diseases of liver; M47.817 Spondylosis without myelopathy or radiculopathy, lumbosacral region; Z98.1 Arthrodesis status
CPT/HCPCS: 72100; 76705

== ENCOUNTER → 2022-09-11 10:38 | Outpatient (CLI) | payer MEDICARE, SELFPAY ==
--- NOTE | 2022-09-11 10:39 | DI.MRI.S_ITS ---
PROCEDURE: MR LUMBAR SPINE WO CON INDICATIONS: Progressive scoliosis with acute pain 6 weeks ago TECHNIQUE: Noncontrast sagittal T1 spin echo and T2 fast echo, sagittal STIR, and T2 fast spin echo through the lumbar spine. In cases with scoliosis, additional coronal T2 fast spin echo may be performed. COMPARISON: [facility], MR, MR LUMBAR SPINE WO/W CON, 01/06/2018, 18:20. [facility], MR, L-SPINE WITHOUT CONTRAST, 10/09/2015, 18:09. [facility], CR, XR LUMBAR SPINE 2-3V, 07/28/2022, 16:53. [facility], MR, L-SPINE WITHOUT CONTRAST, 10/22/2016, 16:26. FINDINGS: Image quality: There is artifact associated with the metallic hardware. This examination is limited by involuntary motion artifact. Alignment and Curvature: Moderate dextroconvex lumbar scoliosis is seen. Minimal retrolisthesis can be seen at T12-L1, L1-L2, L2-L3, L3-L4, and L4-L5. Bone Marrow: There is a T12 central compression deformity seen, with 55% loss of height centrally. There is decreased T1 weighted signal and increased T2 weighted/STIR signal seen. No posterior displacement fracture fragments can be seen. Marrow is of normal overall signal. Spinal Cord: Conus medullaris terminates at the L1 level. Visualized cord demonstrates normal signal and size. Paraspinous Soft Tissues: There is faint visualization of a hyperechoic focus within the right liver dome, which is similar to 2018. T12-L1: The disc height and disk signal are well-preserved. Mild generalized disc bulge is seen. Mild facet joint hypertrophy is seen. At least moderate bilateral neural foraminal narrowing can be seen. Mild central canal narrowing is seen. These imaging findings have progressed compared to the prior study. L1-L2: Moderate loss of disc height is seen. Loss of disc signal is seen. Moderate disc bulge is seen, which is slightly eccentric to the right. Mild facet joint hypertrophy is seen. There is moderate right-sided and at least moderate left-sided neural foraminal narrowing. Mild central canal narrowing is seen. These imaging findings have progressed compared to the prior study. L2-L3: At least moderate loss of disc height and disc signal can be seen. Reactive marrow endplate changes are seen, which are hyperintense on T1-weighted and T2-weighted imaging and most consistent with fatty metaplasia (Modic type II changes). Moderate disc bulge is seen, which is eccentric the left. Mild facet joint hypertrophy is seen. There is [id number] right-sided and at least moderate left-sided neural foraminal narrowing. There is a degree of compression seen upon the exiting left L2 nerve root. These imaging findings have progressed compared to the prior study. L3-L4: Moderate to severe loss of disc height and disc signal can be seen. There is decreased T1 weighted and T2 weighted signal seen along the endplates, without increased STIR signal, which is consistent with Modic type 3 changes, sclerosis. Moderate generalized disc bulge is seen. Mild facet joint hypertrophy is seen. There is moderate right-sided and moderate to severe left-sided neural foraminal narrowing. There is a degree of compression seen upon the exiting left L3 nerve root. Moderate central canal narrowing is seen. When comparison is made with the prior images, these findings are similar. L4-L5: Postoperative changes are seen, with right-sided pedicle screws and a vertical fixation rudy. There has been removal of portions of the posterior elements. There is a disc spacer seen at this level. Mild to moderate disc bulge is seen. Moderate bilateral neural foraminal narrowing is seen. No significant central canal narrowing is seen at this level. When comparison is made with the prior images, these findings are similar. L5-S1: Mild loss of disc height is seen. Loss of disc signal is seen. Mild to moderate disc bulge is seen, with a mild central disc protrusion. Mild to moderate facet hypertrophy is seen. There is moderate left-sided and minimal right-sided neural foraminal narrowing. No significant central canal narrowing is seen. No significant change from the prior. IMPRESSION: There is a subacute compression deformity seen involving the T12 level, with 55% loss of height centrally. This is not definitely seen on the 07/28/2022 plain film study. Moderate dextroconvex lumbar scoliosis is seen. Prior stable postoperative change seen at L4-L5. Multiple levels of degenerative change are seen, which are overall progressed compared to 2018. Dictated by: Ki Gillilnad M.D. on 09/13/2022 at 15:16 Approved by: Ki Gilliland M.D. on 09/13/2022 at 15:25
== END ==
PROVIDERS: PCP Family Medicine; Referring Provider Physical Medicine & Rehabilitation; Visit Provider Physical Medicine & Rehabilitation
DX: M47.26 Other spondylosis with radiculopathy, lumbar region (principal); Z98.1 Arthrodesis status; F17.200 Nicotine dependence, unspecified, uncomplicated; M41.86 Other forms of scoliosis, lumbar region; M43.8X6 Other specified deforming dorsopathies, lumbar region
CPT/HCPCS: 72148

== ENCOUNTER → 2022-10-18 13:11 | Outpatient (CLI) | payer MEDICARE, SELFPAY ==
--- NOTE | 2022-10-18 13:13 | DI.RAD.S_ITS ---
PROCEDURE: XR CHEST 2V INDICATIONS: Cough, wt loss, decreased appetite, smoker TECHNIQUE: 2 views of the chest were acquired. COMPARISON: [facility], , CHEST 2 VIEW, 12/20/2013, 8:39. FINDINGS: Surgical changes and devices: None. Lungs and pleura: Lungs are hyperexpanded. No focal airspace consolidation. Chronic appearing interstitial markings are seen bilaterally. No pleural effusion or pneumothorax. Mediastinum: Mediastinal contours are normal. Heart size is normal. Bones and chest wall: No suspicious bony abnormalities. Soft tissues appear unremarkable. IMPRESSION: Bilateral emphysematous changes. No acute consolidation is seen. If there is concern for pulmonary malignancy, CT could be performed for further evaluation. Approved by: Pablo Benedict M.D. on 10/18/2022 at 21:23
[2022-10-18 14:42] LABS: Add Manual Diff / Slide Review NO; Basophils Absolute Auto 0 /uL (0-100); Basophils Percent Auto 0.5 % (0-2); Eosinophils Absolute Auto 200 /uL (0-450); Eosinophils Percent Auto 2.7 % (2-4); Hematocrit 42.7 % (41-53); Hemoglobin 14.7 g/dL (13.5-17.5); Lymphocytes Absolute Auto 1800 /uL (1100-4500); Lymphocytes Percent Auto 20.9 % (25-40); Mean Corpuscular HGB Conc 34.3 % (30-36); Mean Corpuscular Hemoglobin 33.3 PG (26-34); Mean Corpuscular Volume 96.9 fL (80-100); Monocytes Absolute Auto 1000 /uL (0-900); Monocytes Percent Auto 11.3 % (3-14); Neutrophils Absolute Auto 5600 /uL (1500-7000); Neutrophils Percent Auto 64.6 % (50-75); Platelet Count 291 X10^3/uL (150-400); Red Blood Cell Count 4.41 X10^6/uL (4.5-5.9); Red Cell Distribution Width 13.8 % (11.6-14.8); White Blood Cell Count 8.7 X10^3/uL (4.5-11.0)
[2022-10-18 15:14] LABS: Alanine Aminotransferase 19 IU/L (<50); Albumin 4.1 g/dL (3.5-5.0); Albumin Globulin Ratio 1.4 (1.0-2.8); Alkaline Phosphatase 75 U/L (38-126); Aspartate Aminotransferase 32 IU/L (17-59); BUN Creatinine Ratio 11.8 (6-22); Bilirubin Total 0.6 mg/dL (0.2-1.3); Blood Urea Nitrogen 10 mg/dL (9-20); Calcium 9.5 mg/dL (8.4-10.2); Carbon Dioxide 27 mmol/L (22-32); Chloride 93 mmol/L (98-107); Estimated Glomerular Filt Rate > 60 mL/min (>60); Glucose 106 mg/dL (80-110); HEMOLYSIS < 15 (0-50); Potassium 4.4 mmol/L (3.4-5.1); Sodium 127 mmol/L (137-145); Total Protein 7.1 g/dL (6.3-8.2)
[2022-10-18 15:44] LABS: Prostate Specific Antigen Scrn 23.3 ng/mL (0.1-4.0)
[2022-10-18 15:45] LABS: TSH w/ Reflex to FT4 0.55 uIU/mL (0.47-4.68)
[2022-10-18 16:03] LABS: Vitamin B12 576 pg/mL (239-931)
== END ==
PROVIDERS: PCP Family Medicine; Referring Provider Physician Assistant; Visit Provider Physician Assistant
DX: J44.9 Chronic obstructive pulmonary disease, unspecified (principal); R97.20 Elevated prostate specific antigen [PSA]; R63.0 Anorexia; F17.200 Nicotine dependence, unspecified, uncomplicated; R63.4 Abnormal weight loss; R05.9 Cough, unspecified
CPT/HCPCS: 36415; 71046; 80053; 82607; 84443; 85025; G0103

== ENCOUNTER → 2022-10-21 10:42 | Outpatient (CLI) | payer MEDICARE, SELFPAY ==
--- NOTE | 2022-10-21 11:32 | DI.CT.S_ITS ---
PROCEDURE: CT CHEST ABD PEL WO CON INDICATIONS: Weight loss, decr appetite, elev PSA, smoker TECHNIQUE: After the administration of oral contrast, 5 mm thick sections acquired from the lung apices to the symphysis pubis. 5 mm thick coronal and sagittal reformats acquired, with additional 7 mm coronal MIP reformats through the lungs. For radiation dose reduction, the following was used: automated exposure control, adjustment of mA and/or kV according to patient size. COMPARISON: [facility], MR, MR LUMBAR SPINE WO CON, 09/11/2022, 10:51. [facility], CR, XR LUMBAR SPINE 2-3V, 07/28/2022, 16:53. FINDINGS: Image quality: Excellent. CHEST: Lungs and pleura: There is a 4 mm ground-glass nodule in the right upper lobe (series 5, image 137). A 5 mm nodule is seen along the minor fissure (series 5 image 159). There are calcifications and irregular thickening along the posterior segment of upper lobes bilaterally. Moderate emphysema. No acute pulmonary opacities. No pleural effusions or pneumothorax. Central and peripheral airways are patent are normal in caliber. Mediastinum: Heart size is normal. No pericardial effusion. No mediastinal adenopathy by CT size criteria. Thoracic aorta and central pulmonary arteries are normal in size. Esophagus is normal in caliber. There is a moderate-sized hiatal hernia. Question anterior wall thickening of the distal esophagus. Chest wall: No axillary or supraclavicular adenopathy by size criteria. Thyroid gland is normal . ABDOMEN: Solid organs: Liver is normal in size. There is a 1.2 cm indeterminate hypodense nodule in the posterior segment of the right hepatic lobe. A 1.2 cm cyst is seen in the left hepatic lobe Gallbladder is partially contracted. . Pancreas is normal in contours. Spleen is normal in size. There is a 1 cm left adrenal nodule. Both kidneys are normal in size, without hydronephrosis or nephrolithiasis. Peritoneum and bowel: Small and large bowel loops are normal in caliber and wall thickness. No free fluid or air. There is a large amount of the colon. Nodes and vessels: No retroperitoneal or mesenteric adenopathy by size criteria. Aorta and inferior vena cava are normal in size. Severe atherosclerotic calcifications in abdominal aorta and iliac arteries. Miscellaneous: No ventral hernias. PELVIS: Genitourinary: Bladder wall is thickened. Prostate is mildly enlarged.. Miscellaneous: No inguinal hernias or adenopathy. Bones: No suspicious bony lesions. Severe nonacute compression fracture of T12. Degenerative and postsurgical changes in lumbar spine.. IMPRESSION: 1. Some multiple inclination due to lack of intravenous and oral contrast. 2. Calcified densities in the upper lobes bilaterally, most likely infectious or inflammatory in etiology. 3. Small lung nodules are seen in right upper lobe and right middle lobe. Please see enclosed follow-up recommendation. 4. Moderate emphysema. 5. Bladder wall thickening. Differential diagnoses are bladder infection, neoplasm and chronic bladder outlet obstruction. 6. A large amount of stool in colon. 7. A 1 cm left adrenal nodule. Recommend adrenal protocol CT or MRI for further evaluation.. 8. Moderate-sized hiatal hernia. Question anterior wall thickening of the distal esophagus. Consider EGD for follow-up. 9. Severe nonacute compression fracture of T12. Dictated by: Wandy Joseph M.D. on 10/22/2022 at 11:32 Approved by: Wandy Joseph M.D. on 10/22/2022 at 11:43
== END ==
PROVIDERS: PCP Family Medicine; Referring Provider Physician Assistant; Visit Provider Physician Assistant
DX: R97.20 Elevated prostate specific antigen [PSA] (principal); F17.200 Nicotine dependence, unspecified, uncomplicated; R63.4 Abnormal weight loss; R63.0 Anorexia; R05.9 Cough, unspecified; K21.9 Gastro-esophageal reflux disease without esophagitis; R79.89 Other specified abnormal findings of blood chemistry
CPT/HCPCS: 71250; 74176

== ENCOUNTER → 2022-12-08 07:36 | Outpatient (CLI) | payer MEDICARE, SELFPAY ==
--- NOTE | 2022-12-08 07:40 | DI.CT.S_ITS ---
PROCEDURE: CT CHEST WO CON INDICATIONS: Nodules seen on CT done on 10/21 TECHNIQUE: Noncontrast 2.0-2.5 mm thick sections acquired from the pulmonary apices to the posterior costophrenic angles. 7 mm thick axial MIP and 5 mm coronal and sagittal reformats were then acquired. A low radiation dose technique was utilized. COMPARISON: [facility], CT, CT CHEST ABD PEL WO CON, 10/21/2022, 11:40. FINDINGS: Image quality: Diagnostic, given the low radiation dose technique. Lungs and pleura: Moderate to advanced centrilobular emphysema is seen with bullous disease seen in bilateral upper to mid lung dougherty. Scarring/atelectasis are seen scattered in periphery of bilateral lung dougherty. Posterior biapical scarring and pleural thickening is also noted and grossly unchanged from prior study. No focal infiltrate, pleural effusion or pneumothorax. Central and peripheral airway is patent. Previously described 4 mm ground-glass density nodule in right upper lobe remains unchanged series 3, image 141. Previously described 5 mm nodule along minor fissure with mild spiculated margin is also unchanged series 3, image 164. No new pulmonary nodule is seen. Mediastinum: Heart size is normal. No pericardial effusion. Nonspecific prominent precarinal node measures 1.2 cm in size unchanged from prior studies series 2 image 29. No other mediastinal or hilar lymphadenopathy. Moderate atherosclerotic calcifications are noted in coronary vessels and thoracic aorta. Thoracic aorta and central pulmonary arteries are normal in size. Esophagus is normal in caliber. No hiatal hernia. Bones and chest wall: No suspicious bony lesions. Chronic appearing compression deformity involving T12 vertebral body is again noted unchanged from previous study. No axillary or supraclavicular adenopathy by size criteria. Thyroid gland is within normal limits. Abdomen: Visualized upper abdomen solid organs and bowel loops appear normal in the absence of contrast. IMPRESSION: 1. Stable appearance of bilateral lung dougherty with stable ground-glass and solid nodules in right lung field as above. Additional CT chest follow-up in 12 months is recommended. 2. Moderate to advanced centrilobular emphysema. Chronic appearing scarring/atelectasis in bilateral lung dougherty. 3. Nonspecific mildly prominent precarinal lymph no. This is unchanged from prior studies. 4. Chronic appearing severe compression deformity involving T12 vertebral body. Fleischner Society criteria for SOLID lung nodule followup. Nodule size (mm)Low-risk patientHigh-risk patient<6 (single or multiple)No routine followup.Optional CT at 12 months. 6-8 (single or multiple)CT at 6-12 months, then optional CT at 18-24 mo.CT at 6-12 months, then CT at 18-24 months. >8 (single)CT at 3 months, PET-CT, or biopsy. Same as for low-risk pts. >8 (multiple)CT at 3-6 months, then optional CT at 18-24 mo.CT at 3-6 months, then CT at 18-24 months. Fleischner Society criteria for SUB-SOLID lung nodule followup. Solitary pure ground-glass nodules<6 mm (ground glass or part solid)No followup needed. 6 mm or larger (ground glass)CT at 6-12 months to confirm persistence, then CT every 2 years until 5 years.6 mm or larger (part solid)CT at 3-6 months to confirm persistence, then annual CT until 5 years if unchanged and solid component remains <6 mm. Multiple sub-solid nodules<6 mmCT at 3-6 months, then CT consider at 2 & 4 years for high risk patients. [address] at 3-6 months. Subsequent management based on most suspicious lesions. Recommendations do not apply to lung cancer screening, patients with immunosuppression, or patients with known primary cancer. Dictated by: Saknet Odell M.D. on 12/08/2022 at 11:13 Approved by: Sanket Odell M.D. on 12/08/2022 at 11:23
== END ==
PROVIDERS: PCP Family Medicine; Referring Provider Physician Assistant; Visit Provider Physician Assistant
DX: R91.8 Other nonspecific abnormal finding of lung field (principal); J43.2 Centrilobular emphysema; R63.4 Abnormal weight loss; R30.0 Dysuria; M43.8X4 Other specified deforming dorsopathies, thoracic region; R33.9 Retention of urine, unspecified; R97.20 Elevated prostate specific antigen [PSA]; Z72.0 Tobacco use
CPT/HCPCS: 51798; 71250; 81001; 99215

== ENCOUNTER → 2022-12-08 12:00 | Outpatient (CLI) | payer MEDICARE, SELFPAY ==
[2022-12-08 13:46] LABS: Appearance Urine UA CLEAR; Bilirubin Urine UA NEGATIVE (NEGATIVE); Color Urine UA YELLOW; Glucose Urine UA NEGATIVE (Negative); Ketones Urine UA TRACE (NEGATIVE); Leukocyte Esterase Urine UA NEGATIVE (NEGATIVE); Nitrite Urine UA NEGATIVE (Negative); Occult Blood Urine UA NEGATIVE (Negative); Protein Urine UA NEGATIVE (Negative); Specific Gravity Urine UA <=1.005 (1.000-1.035); Urobilinogen Urine UA 0.2 E.U./dL (0.2)
[2022-12-08 13:51] LABS: Bacteria Urine None Seen; Culture Indicated Urine Cult Not Indicated; RBC Urine None Seen (0-5/HPF); Squamous Epithelial Cell Urine None Seen (0-5/HPF); Urine Comments Microscopic Normal; WBC Urine None Seen (0-5/HPF)
== END ==
PROVIDERS: PCP Family Medicine; Visit Provider Specialist
DX: R30.0 Dysuria (principal)
CPT/HCPCS: 81001

== ENCOUNTER 2022-12-14 12:08 | Day surgery (SDC) | payer MEDICARE, SELFPAY ==
[2022-12-14] VITALS (12 sets, daily range): BP systolic 61–137; BP diastolic 36–77; PULSE 79–106; RESP 15–25; TEMP 36.4–36.8; O2SAT 95–100; BMI 17.2
--- NOTE | 2022-12-14 | PATH_ITS ---
[facility] Accession Number: [id number] No. of containers..03 Tissue . 01 Material submitted: . PART A: gastrointestinal site - GASTRIC PART B: esophagus - ESOPHAGUS PART C: colon - SIGMOID . 01 Diagnosis: A. Gastric, Biopsy: Gastric mucosa with focal minimal chronic nonspecific inflammation. No Helicobacter pylori organisms identified on H/E slide. No intestinal metaplasia, dysplasia, or malignancy identified. . B. Esophagus, Biopsy: Squamous mucosa with mild changes consistent with reflux. No fungal organisms identified on H/E slide. No glandular mucosa present. No dysplasia or malignancy. . C. Sigmoid Colon, Biopsy: Colonic mucosa with nonspecific subepithelial hemorrhage and congestion. Benign lymphoid aggregates are present. No evidence of colitis, dysplasia, or neoplasm. See comment. [facility] 12/21/2022 1801 Local . 01 Comment: C. Although nonspecific, bowel preparation artifact is a consideration. . 01 Electronically signed: . Lor Garrison MD, Pathologist NPI- [id number] . 01 Gross description: . Part A: GASTRIC: Received in formalin is 2 fragment(s) of calle, soft tissue measuring 0.2 x 0.2 x 0.1 cm to 0.2 x 0.1 x 0.1 cm submitted entirely in 1 cassette(s) Part B: ESOPHAGUS: Received in formalin is 2 fragment(s) of calle, soft tissue measuring 0.2 x 0.2 x 0.1 cm to 0.2 x 0.1 x 0.1 cm submitted entirely in 1 cassette(s) Part C: SIGMOID: Received in formalin is 2 fragment(s) of calle, soft tissue measuring 0.3 x 0.2 x 0.1 cm to 0.2 x 0.1 x 0.1 cm submitted entirely in 1 cassette(s) /AAY 12/15/2022 0416 Local . 01 Pathologist provided ICD-10: K29.30, K21.00, R85.7 . 01 CPT . 774255, 124639, 607294 Specimen Comment: A courtesy copy of this report has been sent to [phone] Performed at: 01 [facility] [address] [place] [address], [place], [place] [id number] MD Simone Cantu MD Phone: [phone]
[2022-12-14] MEDS: LACTATED RINGERS 1,000 ML 200 ML IV (12:37)
--- NOTE | 2022-12-14 13:04 | P.HP_ITS ---
History of Present Illness History of Present Illness Date Patient Seen: 12/14/22 Chief complaint: EGD & Colonoscopy w/poss bx's Narrative: 77 y.o man here for diagnostic EGD and colonoscopy for unintentional weight loss. No interval change in health, please refer to H&P October 2022. [facility] Medical History Chronic obstructive pulmonary disease (01/07/14) Compression fracture of L3 lumbar vertebra Hypertension Osteoarthritis Scoliosis T12 compression fracture Urinary retention Surgical History Anesthesia History of inguinal hernia repair Family History Mother Hyperlipidemia Sister No problems noted. Social History marital status: household members: significant other occupational status: previously employed Smoking Status: Current every day smoker alcohol intake: current substance use type: does not use Meds Home Medications and Allergies Home Medications Medication Instructions Recorded Confirmed Type calcitonin (salmon) 200 1 spray intranasal (ALT) DAILY 09/03/22 12/08/22 Rx unit/actuation nasal spray sacral fx 3 months #3.7 mL latanoprost 0.005 % eye drops 1 drp EYE-LEFT BEDTIME 09/03/22 12/08/22 History esomeprazole magnesium 20 mg 20 mg PO DAILY #30 caps 10/18/22 12/08/22 Rx capsule,delayed release sodium sul 1.479 gram-potas ch See Rx Instructions PO PER PKG DIR 11/10/22 12/08/22 Rx 0.188 gram-magnes sul 0.225 gram #24 tabs tablet (Sutab) lisinopril 40 mg tablet 40 mg PO DAILY #90 tabs 11/25/22 12/08/22 Rx calcium carbonate-vitamin D3 PO 12/08/22 12/08/22 History dorzolamide (PF) EYE-BOTH 12/08/22 12/08/22 History tamsulosin 0.4 mg capsule 0.4 mg PO BEDTIME #90 caps 12/08/22 12/08/22 Rx Allergies Allergy/AdvReac Type Severity Reaction Status Date / Time No Known Drug Allergies Allergy Verified 12/14/22 13:03 Exam Vital Signs (past 8 hours): - 12/14/22 12:49 Temperature 98.0 F Pulse Rate 105 H Respiratory Rate 18 Blood Pressure 137/77 Pulse Oximetry 100 Oxygen Delivery Method Room Air Oxygen Delivery Method Room Air Narrative Exam Narrative: Gen-Adult man alert and oriented Assessment & Plan Assessment and plan (1) Weight loss, unintentional: Status: Acute Assessment & Plan narrative: 77y.o man with unintentional weight loss here for diagnostic EGD and Colonoscopy. Overview of procedure discussed. Risks including hemorrage, missed diagnosis, intestinal injury discussed. Questions have been answered and he provides his consent to proceed.
--- NOTE | 2022-12-14 13:15 | PM.OP.EC ---
Operative Date/Time/Diagnoses Date of procedure: 12/14/22 Time of procedure: 13:15 Pre-op diagnosis: unintentional weight loss Post-op diagnosis: other (Gastritis, colonic polyp x1) Procedure & Clinicians Study performed: Esophagoduodenoscopy and colonoscopy Same procedure as scheduled: Yes Indications: 77-year-old man with a history of alcohol and tobacco use he here for diagnostic esophagoduodenoscopy and colonoscopy for unintentional weight loss. Surgeon: Jesus Bernal Procedure Notes Procedure in detail: The history and physical was performed/updated and the patient is ASA class is 2. The procedure was discussed in detail with the patient. Potential risks complications including infection, bleeding, missed diagnosis, perforation, need for surgery, and were explained. Their questions were answered and informed consent was obtained. Patient placed in left lateral decubitus position. Time out was performed. Procedural sedation was administered by Anesthesia. A bite block was placed. the scope was inserted into the mouth and advanced through the esophagus and into the stomach. Stomach had mild gastritis throughout. There were small flecks of clot within the stomach no distinct ulcer or mass. Biopsies of the stomach were performed with forceps. The pylorus was intubated and the duodenum was normal to the 2nd portion. . The scope was withdrawn into the esophagus the Z line was seen at 40 cm from the incisions. There was no Jacinto's esophagitis, esophageal masses or strictures. A biopsy of the esophagus was performed with forceps. Stomach was desufflated and scope removed. Examination began with a thorough inspection of the perianal area there was no evidence of fissures, fistulae, external hemorrhoids or cutaneous malignancy. The colonoscopy scope was then placed into the anal canal and was advanced to the cecum, which was identified by the ileocecal valve, the appendiceal orifice and the confluence of the taenia. The scope was then slowly withdrawn examining colon thoroughly in all directions, irrigating it of any residual stool. Sigmoid colon-5 mm polyp removed in its entirety with biopsy forceps. The patient tolerated the procedure well. They will be discharged once criteria are met. The prep was of good/excellent quality. The withdrawl time was 7minutes. Specimen(s): other (gastric, esophagus, sigmoid polyp) Impression: Gastritis, Colonic polyp x 1 Post-procedure Plan for aftercare: Follow up is dependent on pathology findings Disposition: same day surgery
== END 2022-12-14 14:30 | disposition home or self-care (01) ==
PROVIDERS: PCP Family Medicine; Referring Provider Surgery; Visit Provider Surgery
PROC: 0DJ08ZZ Inspection of Upper Intestinal Tract, Via Natural or Artificial Opening Endoscopic (ICD-10-PCS; CPT 43235; principal; 2022-12-14 13:30)
PROC: 0DJD8ZZ Inspection of Lower Intestinal Tract, Via Natural or Artificial Opening Endoscopic (ICD-10-PCS; CPT 45378; 2022-12-14 13:30)
DX: R63.4 Abnormal weight loss (principal); R85.7 Abnormal histological findings in specimens from digestive organs and abdominal cavity; K29.30 Chronic superficial gastritis without bleeding
CPT/HCPCS: 45380; 43239; J2704

== ENCOUNTER → 2023-02-28 09:32 | Outpatient (CLI) | payer MEDICARE, SELFPAY ==
[2023-02-28 14:55] LABS: Appearance Urine UA CLOUDY; Bilirubin Urine UA NEGATIVE (NEGATIVE); Color Urine UA YELLOW; Glucose Urine UA NEGATIVE (Negative); Ketones Urine UA NEGATIVE (NEGATIVE); Leukocyte Esterase Urine UA 2+ (NEGATIVE); Nitrite Urine UA POSITIVE (Negative); Occult Blood Urine UA 1+ (Negative); Protein Urine UA TRACE (Negative); Urobilinogen Urine UA 0.2 E.U./dL (0.2); pH Urine UA 5.5 (4.5-8.0)
[2023-02-28 15:12] LABS: Amorphous Sediment Urine 2+; Bacteria Urine Moderate (10-30); Culture Indicated Urine Specimen Cultured; RBC Urine 1-5/HPF (0-5/HPF); Squamous Epithelial Cell Urine 1-5 /HPF (0-5/HPF); WBC Urine 5-10/HPF (0-5/HPF)
== END ==
PROVIDERS: PCP Family Medicine; Referring Provider Family Medicine; Visit Provider Family Medicine
DX: R35.0 Frequency of micturition (principal); R82.90 Unspecified abnormal findings in urine
CPT/HCPCS: 81001; 87077; 87086; 87186

== ENCOUNTER → 2023-07-26 15:47 | Outpatient (CLI) | payer MEDICARE, SELFPAY ==
[2023-07-26 17:29] LABS: Add Manual Diff / Slide Review NO; Basophils Absolute Auto 0 /uL (0-100); Basophils Percent Auto 0.2 % (0-2); Eosinophils Absolute Auto 100 /uL (0-450); Eosinophils Percent Auto 0.8 % (2-4); Hematocrit 36.4 % (41-53); Hemoglobin 12.4 g/dL (13.5-17.5); Lymphocytes Absolute Auto 1300 /uL (1100-4500); Lymphocytes Percent Auto 6.9 % (25-40); Mean Corpuscular Hemoglobin 34.6 PG (26-34); Mean Corpuscular Volume 101.7 fL (80-100); Monocytes Absolute Auto 1400 /uL (0-900); Monocytes Percent Auto 7.7 % (3-14); Neutrophils Absolute Auto 15300 /uL (1500-7000); Neutrophils Percent Auto 84.4 % (50-75); Platelet Count 289 X10^3/uL (150-400); Red Blood Cell Count 3.58 X10^6/uL (4.5-5.9); Red Cell Distribution Width 15.1 % (11.6-14.8); White Blood Cell Count 18.1 X10^3/uL (4.5-11.0)
== END ==
PROVIDERS: PCP Family Medicine; Referring Provider Internal Medicine Cardiovascular Disease; Visit Provider Orthopaedic Surgery
DX: I25.10 Atherosclerotic heart disease of native coronary artery without angina pectoris (principal)
CPT/HCPCS: 36415; 85025

== ENCOUNTER → 2023-08-02 10:48 | Outpatient (CLI) | payer MEDICARE, SELFPAY ==
[2023-08-02 11:04] LABS: Add Manual Diff / Slide Review NO; Basophils Absolute Auto 0 /uL (0-100); Basophils Percent Auto 0.3 % (0-2); Eosinophils Absolute Auto 200 /uL (0-450); Eosinophils Percent Auto 2.4 % (2-4); Hematocrit 37.4 % (41-53); Hemoglobin 13.1 g/dL (13.5-17.5); Lymphocytes Absolute Auto 1400 /uL (1100-4500); Lymphocytes Percent Auto 14.2 % (25-40); Mean Corpuscular Hemoglobin 35.1 PG (26-34); Mean Corpuscular Volume 100.2 fL (80-100); Monocytes Absolute Auto 1200 /uL (0-900); Neutrophils Absolute Auto 7000 /uL (1500-7000); Neutrophils Percent Auto 71.1 % (50-75); Platelet Count 386 X10^3/uL (150-400); Red Blood Cell Count 3.73 X10^6/uL (4.5-5.9); White Blood Cell Count 9.9 X10^3/uL (4.5-11.0)
[2023-08-02 11:17] LABS: Blood Urea Nitrogen 9 mg/dL (9-20); Carbon Dioxide 29 mmol/L (22-32); Chloride 87 mmol/L (98-107); Estimated Glomerular Filt Rate > 60 mL/min (>60); Glucose 109 mg/dL (80-110); HEMOLYSIS < 15 (0-50); Potassium 4.4 mmol/L (3.4-5.1); Sodium 122 mmol/L (137-145)
== END ==
PROVIDERS: PCP Family Medicine; Referring Provider Internal Medicine Cardiovascular Disease; Visit Provider Internal Medicine Cardiovascular Disease
DX: I25.10 Atherosclerotic heart disease of native coronary artery without angina pectoris (principal)
CPT/HCPCS: 36415; 80048; 85025

== ENCOUNTER → 2023-10-21 10:26 | Outpatient (CLI) | payer MEDICARE, SELFPAY ==
[2023-10-21 10:43] LABS: Add Manual Diff / Slide Review NO; Basophils Absolute Auto 100 /uL (0-100); Basophils Percent Auto 0.7 % (0-2); Eosinophils Absolute Auto 300 /uL (0-450); Eosinophils Percent Auto 3.1 % (2-4); Hematocrit 31.4 % (41-53); Hemoglobin 10.7 g/dL (13.5-17.5); Lymphocytes Absolute Auto 1100 /uL (1100-4500); Lymphocytes Percent Auto 12.6 % (25-40); Mean Corpuscular HGB Conc 34.2 % (30-36); Mean Corpuscular Hemoglobin 33.4 PG (26-34); Mean Corpuscular Volume 97.5 fL (80-100); Monocytes Absolute Auto 900 /uL (0-900); Neutrophils Absolute Auto 6400 /uL (1500-7000); Neutrophils Percent Auto 73.6 % (50-75); Platelet Count 298 X10^3/uL (150-400); Red Blood Cell Count 3.22 X10^6/uL (4.5-5.9); Red Cell Distribution Width 15.5 % (11.6-14.8); White Blood Cell Count 8.7 X10^3/uL (4.5-11.0)
[2023-10-21 11:05] LABS: HEMOLYSIS < 15 (0-50)
[2023-10-21 12:17] LABS: Folate > 20.0 ng/mL (2.76-20.0); Vitamin B12 631 pg/mL (239-931)
[2023-10-21 12:44] LABS: Alanine Aminotransferase 17 IU/L (<50); Albumin 3.8 g/dL (3.5-5.0); Albumin Globulin Ratio 1.2 (1.0-2.8); Alkaline Phosphatase 105 U/L (38-126); Aspartate Aminotransferase 86 IU/L (17-59); BUN Creatinine Ratio 11.3 (6-22); Bilirubin Total 0.5 mg/dL (0.2-1.3); Blood Urea Nitrogen 11 mg/dL (9-20); Carbon Dioxide 31 mmol/L (22-32); Chloride 98 mmol/L (98-107); Estimated Glomerular Filt Rate > 60 mL/min (>60); Globulin 3.2 g/dL (1.7-4.1); Potassium 4.6 mmol/L (3.4-5.1); Sodium 130 mmol/L (137-145)
[2023-10-21 13:15] LABS: Glucose 122 mg/dL (80-110)
== END ==
PROVIDERS: PCP Family Medicine; Referring Provider Physician Assistant; Visit Provider Physician Assistant
DX: K21.9 Gastro-esophageal reflux disease without esophagitis (principal); R63.4 Abnormal weight loss; R53.83 Other fatigue; E53.8 Deficiency of other specified B group vitamins
CPT/HCPCS: 36415; 80053; 82607; 82746; 85025

== ENCOUNTER → 2023-12-08 10:33 | Outpatient (CLI) | payer MEDICARE, SELFPAY ==
[2023-12-08 11:17] LABS: Hematocrit 34.7 % (41-53); Hemoglobin 11.9 g/dL (13.5-17.5)
[2023-12-08 11:51] LABS: Sodium 127 mmol/L (137-145)
[2023-12-08 11:54] LABS: HEMOLYSIS < 15 (0-50); Iron 76 ug/dL (49-181)
[2023-12-08 12:04] LABS: Percent Iron Saturation 31 % (20-50); Total Iron Binding Capacity 246 ug/dL (261-462); Transferrin 197 mg/dL (206-381)
== END ==
PROVIDERS: PCP Family Medicine; Referring Provider Physician Assistant; Visit Provider Physician Assistant
DX: D64.9 Anemia, unspecified (principal); I10 Essential (primary) hypertension; Z79.899 Other long term (current) drug therapy; E87.1 Hypo-osmolality and hyponatremia
CPT/HCPCS: 36415; 83540; 83550; 84295; 85014; 85018

== ENCOUNTER → 2023-12-14 11:50 | Outpatient (CLI) | payer MEDICARE, SELFPAY ==
--- NOTE | 2023-12-14 11:50 | DI.CT.S_ITS ---
PROCEDURE: CT CHEST WO CON INDICATIONS: One year f/u on lung nodules TECHNIQUE: Noncontrast 5 mm thick sections acquired from the pulmonary apices to the posterior costophrenic angles. 1 mm lung window, 5 mm thick coronal and sagittal and 7 mm axial MIP reformats were then acquired. For radiation dose reduction, the following was used: automated exposure control, adjustment of mA and/or kV according to patient size. COMPARISON: [facility], CT, CT CHEST WITHOUT CONTRAST, 08/10/2023, 15:19. [facility], CT, CT CHEST WO CON, 12/08/2022, 7:47. FINDINGS: Image quality: Diagnostic. Lower Neck: No enlarged lymph nodes. Thyroid: No thyroid nodules which require sonographic follow up, per consensus guidelines. Axillae: No enlarged lymph nodes. Chest Wall: Unremarkable. Bones: Diffuse osseous demineralization. Redemonstration of T12 compression deformity with approximately 75 percent height loss and minimal osseous retropulsion. Similar compression fracture at T8 with approximately 50 percent height loss and no significant osseous retropulsion. Interval mildly displaced fracture of the proximal sternal body (5/35), likely a subtle nondisplaced fracture on prior CT dated August 10, 2023. There is no bridging callus formation. Multilevel degenerative changes of the spine.. Lungs and Pleura: No pneumothorax or pleural effusions. Compared to CT chest dated August 10, 2023, no new or enlarging solid pulmonary nodule or consolidation. Stable right upper lobe ground-glass nodule measuring 4 mm (2/29). Additional nodule with irregular margin along the right fissure is stable measuring 5 mm (2/34). Biapical pleural parenchymal linear consolidation/scar with associated calcification traction bronchiectasis. Severe apical predominant centrilobular and paraseptal emphysema. Patent central airways. Heart: Heart size is normal. No pericardial effusion. Moderate three-vessel coronary calcification. 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 Main pulmonary artery is normal in caliber. Moderate calcification of the thoracic aorta. Moderate to severe calcification at the origins of the great vessels. Mediastinum and Grisel: No enlarged lymph nodes. Esophagus: No wall thickening. Small hiatal hernia. Upper Abdomen: Visualized upper abdomen solid organs and bowel loops appear normal. Moderate to marked calcification of the visualized abdominal aorta. IMPRESSION: 1. Compared to CT chest dated August 10, 2023, no new or enlarging solid pulmonary nodule or consolidation. Two pulmonary nodules are stable. If patient meets criteria, consider annual low-dose chest CT for lung cancer surveillance. 2. Severe emphysema with stable biapical pleural parenchymal scarring. 3. Similar appearance of compression fractures at T8 and T12. There is increased displacement of a proximal sternal body fracture, previously a subtle nondisplaced fracture. 4. Ascending thoracic aorta is ectatic measuring 4.5 x 4.2 cm, stable. Dictated by: Tia Alexandre M.D. on 12/15/2023 at 17:40 Approved by: Tia Alexandre M.D. on 12/15/2023 at 17:53
== END ==
PROVIDERS: PCP Family Medicine; Referring Provider Physician Assistant; Visit Provider Physician Assistant
DX: R91.8 Other nonspecific abnormal finding of lung field (principal); J43.9 Emphysema, unspecified; J98.4 Other disorders of lung; M48.54XA Collapsed vertebra, not elsewhere classified, thoracic region, initial encounter for fracture; I77.810 Thoracic aortic ectasia
CPT/HCPCS: 71250

== ENCOUNTER → 2023-12-22 10:41 | Outpatient (CLI) | payer MEDICARE, SELFPAY ==
[2023-12-22 11:30] LABS: BUN Creatinine Ratio 15.8 (6-22); Blood Urea Nitrogen 15 mg/dL (9-20); Carbon Dioxide 29 mmol/L (22-32); Chloride 93 mmol/L (98-107); Estimated Glomerular Filt Rate > 60 mL/min (>60); Glucose 121 mg/dL (80-110); HEMOLYSIS < 15 (0-50); Sodium 126 mmol/L (137-145)
== END ==
LOC: LAB 10:42
PROVIDERS: PCP Family Medicine; Referring Provider Physician Assistant; Visit Provider Physician Assistant
DX: E87.1 Hypo-osmolality and hyponatremia (principal)
CPT/HCPCS: 36415; 80048

== ENCOUNTER → 2023-12-28 11:43 | Outpatient (CLI) | payer MEDICARE, SELFPAY ==
--- NOTE | 2023-12-28 12:30 | DI.MRI.S_ITS ---
PROCEDURE: MR THORACIC SPINE WO CON INDICATIONS: Similar appearance of compression fractures at T8 and T12. TECHNIQUE: Noncontrast sagittal T1 spine echo and T2 fast spin echo, sagittal STIR, and T2 fast spin echo through the thoracic spine. COMPARISON: [facility], CT, CT CHEST WO CON, 12/08/2022, 7:47. [facility], CT, CT CHEST WITHOUT CONTRAST, 08/10/2023, 15:19. [facility], CT, CT CHEST WO CON, 12/14/2023, 11:55. FINDINGS: Image quality: Excellent Localizer image: Scarring versus consolidation in bilateral upper lobe, previously better appreciated on CT chest on 12/14/2023. Mild dextroscoliosis of the thoracic spine, centered at T4-5. Slightly exaggerated kyphosis of the thoracic spine. Moderate inferior endplate fracture of T8, without marrow edema, chronic. There is a small, 1.0 cm T2 hyperintense lesion with T1 hypointensity at the posterior aspect of T8 vertebral body, nonspecific. Severe inferior endplate fracture of T12 with mild retropulsion of posterior T12 vertebral body, unchanged in vertebral body height dating back to CT on 12/08/2022. However, there is diffuse mild marrow edema of T12 vertebral body, suggestive of late subacute etiology. Multilevel disc bulge and disc desiccation. Cord signal: Minimally prominent central canal at the level of T7-8. Central canal stenosis: Mild at C5-6, and C6-7. Mild at T8-T9 and T12-L1. Right neural foraminal stenosis: Mild at T12-L1. Left neural foraminal stenosis: None. Other soft tissue findings: Visualized thoracic aorta is unremarkable. IMPRESSION: 1. Moderate fear endplate fracture of T8, chronic. 2. Severe inferior endplate fracture of T12, late subacute. 3. Multilevel degenerative changes of the thoracic spine, most pronounced at T12-L1, there is mild central canal stenosis and mild right neural foraminal stenosis. 4. Small T2 hyperintense lesion in T8 vertebral body, nonspecific. Dictated by: Birgit Barahona M.D. on 12/28/2023 at 16:00 Approved by: Birgit Barahona M.D. on 12/28/2023 at 16:16
== END ==
LOC: MRI 11:44
PROVIDERS: PCP Family Medicine; Referring Provider Family Medicine; Visit Provider Family Medicine
DX: S22.069A Unspecified fracture of T7-T8 vertebra, initial encounter for closed fracture (principal); S22.089A Unspecified fracture of T11-T12 vertebra, initial encounter for closed fracture; M47.814 Spondylosis without myelopathy or radiculopathy, thoracic region; M47.815 Spondylosis without myelopathy or radiculopathy, thoracolumbar region; M48.05 Spinal stenosis, thoracolumbar region; M89.9 Disorder of bone, unspecified; M48.04 Spinal stenosis, thoracic region; M47.817 Spondylosis without myelopathy or radiculopathy, lumbosacral region; M50.30 Other cervical disc degeneration, unspecified cervical region; M54.9 Dorsalgia, unspecified
CPT/HCPCS: 72146

== ENCOUNTER → 2024-02-08 11:32 | Outpatient (CLI) | payer MEDICARE, SELFPAY ==
[2024-02-08 12:28] LABS: Hematocrit 29.3 % (41-53); Hemoglobin 10.3 g/dL (13.5-17.5)
[2024-02-08 12:49] LABS: HEMOLYSIS < 15 (0-50); Iron 81 ug/dL (49-181)
[2024-02-08 12:52] LABS: BUN Creatinine Ratio 9.2 (6-22); Blood Urea Nitrogen 10 mg/dL (9-20); Calcium 8.9 mg/dL (8.4-10.2); Carbon Dioxide 30 mmol/L (22-32); Chloride 90 mmol/L (98-107); Estimated Glomerular Filt Rate > 60 mL/min (>60); Glucose 106 mg/dL (80-110); HEMOLYSIS < 15 (0-50); Sodium 126 mmol/L (137-145)
[2024-02-08 13:02] LABS: Percent Iron Saturation 33 % (20-50); Total Iron Binding Capacity 243 ug/dL (261-462); Transferrin 184 mg/dL (206-381)
[2024-02-08 13:20] LABS: Prostate Specific Antigen 18.5 ng/mL (0.10-4.00)
== END ==
PROVIDERS: Physician Assistant; PCP Family Medicine; Referring Provider Urology; Visit Provider Urology
DX: R97.20 Elevated prostate specific antigen [PSA] (principal); D50.9 Iron deficiency anemia, unspecified; E87.1 Hypo-osmolality and hyponatremia; N40.1 Benign prostatic hyperplasia with lower urinary tract symptoms; N13.9 Obstructive and reflux uropathy, unspecified; R33.9 Retention of urine, unspecified
CPT/HCPCS: 36415; 80048; 83540; 83550; 84153; 85014; 85018; 99213

== ENCOUNTER → 2024-03-30 12:19 | Outpatient (CLI) | payer MEDICARE, SELFPAY ==
--- NOTE | 2024-03-30 12:20 | DI.MRI.S_ITS ---
PROCEDURE: MR PELIS WO/W CON INDICATIONS: 79 y/o M w/ elevated PSA, please eval. TECHNIQUE: Coronal HASTE, axial T1 FSE with fat saturation, 3-plane nonbreath-hold T2 FSE. After the administration of contrast, dynamic axial, delayed axial and coronal VIBE or 2-D FLASH with fat saturation through the pelvis. Diffusion weighted imaging and ADC was performed. COMPARISON: None. FINDINGS: Image quality: Significantly motion degraded exam. There is also significant metallic artifact Prostate: 4.9 x 4.2 x 4.3 cm. Estimated volume is 46 cc. Estimated PSA density is elevated at 0.40. Transitional zone heterogenous nodules are present, either well encapsulated or mostly encapsulated, compatible with PI-RADS 1 or 2 likely BPH nodules. In the anterior basal right and midline transitional zone and fibromuscular stroma, there is a 1.3 x 1.3 x 1.4 cm lesion. T2 score 4. DWI score 4. DCE negative. PI-RADS 4. In the midline anterior fibromuscular stroma at the mid gland, there is 1 x 0.9 x 0.8 cm lesion. DWI score 4. T2 score 3. DCE negative. PI-RADS 3. The seminal vesicles are clear. No definite extracapsular disease. Genitourinary system: Distended urinary bladder. Bowel and peritoneum: No bowel obstruction or pathologic ascites Nodes and vessels: No enlarged lymph nodes by size criteria. No aneurysmal vessel is seen. Soft tissues: Unremarkable pelvic wall Bones: No suspicious osseous lesions. IMPRESSION: PI-RADS 3 and 4 lesions in the anterior prostate as described above. The PSA density is elevated. No definite extracapsular disease, however micro capsular involvement is possible given extent of contact of the anterior basal lesion described above if targeted biopsies are positive Seminal vesicles are clear. No enlarged lymph nodes by size criteria using MRI. Consider prostate PET-CT to further evaluate if targeted biopsies are positive. This exam is limited by motion and metallic artifact. Dictated by: Landon Wong M.D. on 03/30/2024 at 22:11 Approved by: Landon Wong M.D. on 03/30/2024 at 22:18
== END ==
PROVIDERS: PCP Family Medicine; Referring Provider Urology; Visit Provider Urology
DX: N42.9 Disorder of prostate, unspecified (principal); R97.20 Elevated prostate specific antigen [PSA]
CPT/HCPCS: 72197; A9579

== ENCOUNTER → 2024-05-01 10:25 | Outpatient (CLI) | payer MEDICARE, SELFPAY ==
--- NOTE | 2024-05-01 10:26 | DI.RAD.S_ITS ---
PROCEDURE: XR LUMBAR SPINE 2-3V INDICATIONS: Fall; R hip and ischial tuberosity pain; low back pain TECHNIQUE: 3 views of the lumbar spine were acquired. COMPARISON: [facility], , XR LUMBAR SPINE 2-3V, 07/28/2022, 16:53. FINDINGS: Lumbar spine curvature and alignment: Moderate dextroscoliosis appreciated. Bones: Severe T12 compression fracture noted Disc spaces: L4-5 anterior/posterior fusion changes provided by interbody spacer, pedicle screws and short interbody struts. There is severe degenerative disc disease in the remaining lumbar levels. Severe L4-5 and L5-S1 degenerative facet disease. Intervertebral foramen: Grossly normal in width. Soft tissues: No soft tissue swelling, calcification or mass. IMPRESSION: Severe T12 compression fracture. Multilevel degeneration L4-5 anterior/posterior fusion anatomic alignment Dictated by: Alireza Ramos M.D. on 05/02/2024 at 10:44 Approved by: Alireza Ramos M.D. on 05/02/2024 at 10:46
--- NOTE | 2024-05-01 10:26 | DI.RAD.S_ITS ---
PROCEDURE: XR HIP W PEL IF DONE MATTHEW MIN 4V INDICATIONS: Fall; R hip and ischial tuberosity pain; low back pain TECHNIQUE: AP pelvis with lateral view(s) of the bilateral hip(s). COMPARISON: [facility], CR, [id number] W PEL IF PERFORMED, 11/10/2016, 9:20. FINDINGS: Bones: Displaced fracture of the right greater trochanter. Pelvic ring appears intact. No suspicious bony lesions. Lower lumbar spine hardware. Degenerative changes of the visualized lower lumbar spine and pubic symphysis. Decreased osseous mineralization. Soft tissues: The visualized bowel gas pattern is normal. No suspicious soft tissue calcifications. Left iliac stents in place. IMPRESSION: Displaced fracture of the right greater trochanter. Patient was recommended to go to the ER for further evaluation. Dictated by: Pedro Gomez M.D. on 05/01/2024 at 10:50 Approved by: Pedro Gomez M.D. on 05/01/2024 at 10:51
== END ==
PROVIDERS: PCP Family Medicine; Referring Provider Physician Assistant; Visit Provider Physician Assistant
DX: S72.111A Displaced fracture of greater trochanter of right femur, initial encounter for closed fracture (principal); S22.080A Wedge compression fracture of T11-T12 vertebra, initial encounter for closed fracture; M51.360 Other intervertebral disc degeneration, lumbar region with discogenic back pain only; M51.370 Other intervertebral disc degeneration, lumbosacral region with discogenic back pain only; M47.816 Spondylosis without myelopathy or radiculopathy, lumbar region; M47.817 Spondylosis without myelopathy or radiculopathy, lumbosacral region; I10 Essential (primary) hypertension; F17.200 Nicotine dependence, unspecified, uncomplicated; M41.9 Scoliosis, unspecified; M25.551 Pain in right hip; W19.XXXA Unspecified fall, initial encounter; Z98.1 Arthrodesis status
CPT/HCPCS: 72100; 73522

== ENCOUNTER 2024-05-01 10:53 | Emergency (ER) | payer MEDICARE, SELFPAY ==
[2024-05-01] VITALS (7 sets, daily range): BP systolic 129–179; BP diastolic 63–82; PULSE 67–87; RESP 16–20; TEMP 36.3; O2SAT 91–99
--- NOTE | 2024-05-01 11:07 | ED.EXTPRO ---
HPI - Extremity Problem General Chief complaint: Extremity Injury, Lower Stated complaint: Right hip pain sent from Xray Time Seen by Provider: 05/01/24 11:00 History of Present Illness HPI Narrative: Patient here with . Patient is sent here from outpatient x-ray for the right hip. Patient has a right-sided greater trochanter fracture. Patient states he fell 2 weeks ago outside at his home in the grass. Denies any other injuries. Did not hit his head. He states his generator was not working. He states his pain is much better than 2 weeks ago. Has been ambulatory. No numbness or tingling or weakness to the leg. Shoes and socks removed. Pants removed. No shortening or rotation of the right lower extremity. Strong pedal pulse foot forearm soft and pink. Related Data Home Medications Medication Instructions Recorded Confirmed latanoprost 0.005 % eye drops 1 drp EYE-LEFT BEDTIME 09/03/22 05/01/24 atorvastatin 20 mg tablet 20 mg PO DAILY 08/24/23 05/01/24 aspirin 325 mg tablet 325 mg PO DAILY 10/25/23 05/01/24 clopidogrel 75 mg tablet 75 mg PO DAILY 10/25/23 05/01/24 dorzolamide 22.3 mg-timolol 6.8 EYE-BOTH 10/25/23 05/01/24 mg/mL eye drops ferrous sulfate 325 mg (65 mg 325 mg PO DAILY 02/08/24 05/01/24 iron) tablet (Feosol) sodium chloride 1,000 mg soluble 2,000 mg PO DAILY 05/01/24 tablet Previous Rx's Medication Instructions Recorded calcitonin (salmon) 200 1 spray intranasal (ALT) DAILY 06/20/23 unit/actuation nasal spray sacral fx 3 months #3.7 mL folic acid 1 mg tablet 1 mg PO DAILY #90 tabs 10/18/23 furosemide 20 mg tablet 20 mg PO DAILY #90 tabs 10/26/23 metoprolol succinate 25 mg 12.5 mg (1/2 x 25 mg) PO DAILY #90 10/26/23 tablet,extended release 24 hr tabs lisinopril 40 mg tablet 40 mg PO DAILY #90 tabs 12/29/23 tamsulosin 0.4 mg capsule 0.4 mg PO ONCE PM #90 caps 02/24/24 esomeprazole magnesium 20 mg 20 mg PO DAILY #90 caps 02/27/24 capsule,delayed release Allergies Allergy/AdvReac Type Severity Reaction Status Date / Time No Known Drug Allergies Allergy Verified 05/01/24 11:06 Review of Systems Review of Systems Narrative: GENERAL: Negative chills, fatigue, malaise, fever, sweats. HEENT: Negative sinus pain, ear pain, sore throat RESPIRATORY: Negative dyspnea, cough CARDIOVASCULAR: Negative chest pain, palpitations GASTROINTESTINAL: Negative nausea, vomiting, abdominal pain : Negative dysuria, frequency, hematuria MUSCULOSKELETAL: Positive muscle or bony pain SKIN: Negative rash, skin lesions NEUROLOGIC: Negative weakness, numbness ROS Unobtainable: All systems reviewed & are unremarkable except as noted in HPI and below Patient History Medical History Urinary retention Hypertension Osteoarthritis T12 compression fracture Scoliosis Compression fracture of L3 lumbar vertebra Chronic obstructive pulmonary disease (01/07/14) Surgical History Anesthesia History of inguinal hernia repair Family History Mother Hyperlipidemia Sister No problems noted. Social History marital status: household members: significant other occupational status: previously employed Smoking Status: Current every day smoker alcohol intake: current substance use type: does not use Smoking Status: Current every day smoker alcohol intake frequency: 3 or more drinks per day Exam Narrative Exam Narrative: GENERAL: in no distress, not toxic not dyspneic HEAD: Normocephalic. EYES: Pupils equal round ENT: Mucous membranes moist. NECK: Trachea midline. CARDIOVASCULAR: Regular rate and rhythm RESPIRATORY: Clear to auscultation. Breath sounds equal bilaterally. No wheezes, rales, or rhonchi. GASTROINTESTINAL: Abdomen soft, non-tender EXTREMITIES: No gross deformities. Examination right lower extremity, skin warm soft pink foot warm soft and pink strong pedal pulse brisk cap refills light touch intact to foot and toes. Nontender knee and ankle. No shortening or rotation of the right lower extremity. Mild tenderness to the right hip area. However, patient able to flex and extend at the hip and flex and extend at the knee without difficulty. Elevate right leg in the air without difficulty. NEURO: AOx4. SKIN: Warm and dry PSYCH: Not anxious, is cooperative Initial Vital Signs Initial Vital Signs: Vital Signs Temperature 97.3 F L 05/01/24 10:55 Pulse Rate 67 05/01/24 10:55 Respiratory Rate 16 05/01/24 10:55 Blood Pressure 179/74 H 05/01/24 10:55 Pulse Oximetry 95 05/01/24 10:55 Oxygen Delivery Method Room Air 05/01/24 10:55 Course Orders Ordered: ED Orders 05/01/24 11:17 MR hip RT wo con Stat 05/01/24 15:00 US extremity nonvasc lower rt Stat Vital Signs Vital signs: Vital Signs - 8 hr 05/01/24 10:55 05/01/24 11:02 05/01/24 11:02 Temperature 97.3 F L Pulse Rate 67 87 Respiratory Rate 16 Blood Pressure 179/74 H 179/74 H Pulse Oximetry 95 95 Oxygen Delivery Method Room Air 05/01/24 12:35 05/01/24 14:30 05/01/24 16:30 Temperature Pulse Rate 73 74 82 Respiratory Rate 18 20 Blood Pressure 129/63 159/74 H 170/82 H Pulse Oximetry 99 93 91 Oxygen Delivery Method Room Air Room Air 05/01/24 16:59 Temperature Pulse Rate 77 Respiratory Rate 18 Blood Pressure 170/82 H Pulse Oximetry 91 Oxygen Delivery Method MDM - Extremity (Nontraumatic) Imaging Data Extremity x-ray #1: Radiologist's Impression: [place] [address] XRay Report Signed Patient: Ramesh Em MR#: [id number] : 1945 Acct:[id number] Age/Sex: 79 / M Date of Service: 05/01/24 Loc: RAD Accession Number: [id number] Procedure: XR hip w pel if done MATTHEW 3to4V Ordering Provider: Brittany Nguyen P.A-C PROCEDURE: XR HIP W PEL IF DONE MATTHEW MIN 4V INDICATIONS: Fall; R hip and ischial tuberosity pain; low back pain TECHNIQUE: AP pelvis with lateral view(s) of the bilateral hip(s). COMPARISON: [facility], , [id number] W PEL IF PERFORMED, 11/10/2016, 9:20. FINDINGS: Bones: Displaced fracture of the right greater trochanter. Pelvic ring appears intact. No suspicious bony lesions. Lower lumbar spine hardware. Degenerative changes of the visualized lower lumbar spine and pubic symphysis. Decreased osseous mineralization. Soft tissues: The visualized bowel gas pattern is normal. No suspicious soft tissue calcifications. Left iliac stents in place. IMPRESSION: Displaced fracture of the right greater trochanter. Patient was recommended to go to the ER for further evaluation. Dictated by: Pedro Gomez M.D. on 05/01/2024 at 10:50 Approved by: Pedro Gomez M.D. on 05/01/2024 at 10:51 MRI hip: Radiologist's Impression: [address] [address] Magnetic Resonance Report Signed Patient: Ramesh Em MR#: [id number] : 1945 Acct:[id number] Age/Sex: 79 / M Date of Service: 05/01/24 Loc: ED Accession Number: [id number] Procedure: MR hip RT wo con Ordering Provider: Rolando Del Rosario MD PROCEDURE: MR HIP RT WO CON INDICATIONS: Right Greater trochanteric fracture/rule out intertrochanteric fx TECHNIQUE: Noncontrast coronal T1 spin echo and STIR through the bony pelvis. Coronal and axial T2 fast spin echo with fat saturation, sagittal T1 spin echo, and oblique axial T2 fast spin echo with fat saturation through the hip. COMPARISON: [facility], US, US EXTREMITY NONVASC LOWER RT, 05/01/2024, 15:24. [facility], MR, MR PELVIS WO/W CON, 03/30/2024, 13:45. [facility], CR, XR HIP W PEL IF DONE MATTHEW 3TO4V, 05/01/2024, 10:23. FINDINGS: Image quality: Excellent. Bones: Marrow edema is present at the right proximal femoral intertrochanteric region, related to an avulsed greater trochanteric fracture fragment (2/11). There is incomplete extension of marrow edema and T1 hypointense fracture lines into the intertrochanteric region (2/15; 3/14), without involvement of the lesser trochanter or femoral calcar region. Otherwise, the marrow signal is within normal limits. There is no marrow replacement of the visualized axial and appendicular skeleton to suggest an underlying neoplastic process. Joints: The sacroiliac joints are preserved, without reactive marrow changes. The hip joints are preserved. There is no significant right hip joint effusion or pericapsular edema. Acetabular cartilage: There is mild diffuse thinning of the right hip acetabular cartilage. Labrum: There is blunting of the anterior-superior labrum without a large paralabral cyst or chondrolabral separation. Bursae: There is no increased fluid within the greater trochanteric or iliopsoas bursae. Muscles: Intramuscular edema is present within the right gluteus minimus/medius, quadratus femoris, and adductor musculature (4/5-27). Similar findings are present at the left hip (3/16). Tendons: The right gluteus tendons remain attached to the avulsive greater trochanteric fragment. The tendons about the pelvis otherwise appear normal in signal and size. Nerves: The sciatic nerves are normal in signal and caliber. Vessels: The dominant flow voids are preserved. Other: Susceptibility artifact is present at the lower lumbar spine and pelvis secondary to fixation hardware and a left vascular stent. IMPRESSION: 1. Right hip greater trochanteric avulsive fracture with incomplete intertrochanteric extension. No evidence of underlying neoplasm on this unenhanced exam. 2. Traumatic strains of the bilateral hip musculature, greater on the right. Dictated by: Bandar Esposito M.D. on 05/01/2024 at 15:53 Approved by: Bandar Esposito M.D. on 05/01/2024 at 16:08 Ultrasound pulses: Radiologist's Impression: [address] [address] Ultrasound Report Signed Patient: Ramesh Em MR#: [id number] : 1945 Acct:[id number] Age/Sex: 79 / M Date of Service: 05/01/24 Loc: ED Accession Number: [id number] Procedure: US extremity nonvasc lower rt Ordering Provider: Rolando Del Rosario MD PROCEDURE: US EXTREMITY NONVASC LOWER RT INDICATIONS: Assess pedal/posterior tibial pulses TECHNIQUE: Real-time scanning was performed of the lower extremity arteries , with image documentation. COMPARISON: None. FINDINGS: Right distal posterior tibial artery velocity of 25 centimeters/second, monophasic waveforms. Right distal dorsalis pedis artery velocity of 30 centimeters/second with biphasic waveforms. Left distal posterior tibial artery velocity of 32 centimeters/second with biphasic waveforms. Left distal dorsalis pedis artery velocity of 55 centimeters/second with biphasic waveforms. No significant plaque is seen bilaterally. IMPRESSION: Velocities and waveforms as above. No significant stenosis. Dictated by: Pedro Gomez M.D. on 05/01/2024 at 16:18 Approved by: Pedro Gmoez M.D. on 05/01/2024 at 16:20 [facility] Narrative Medical decision making narrative: Patient here with . Patient is sent here from outpatient x-ray for the right hip. Patient has a right-sided greater trochanter fracture. Patient states he fell 2 weeks ago outside at his home in the grass. Denies any other injuries. Did not hit his head. He states his generator was not working. He states his pain is much better than 2 weeks ago. Has been ambulatory. No numbness or tingling or weakness to the leg. Shoes and socks removed. Pants removed. No shortening or rotation of the right lower extremity. Strong pedal pulse foot forearm soft and pink. After history and exam, exam is reassuring. X-rays already been done. No blood work indicated. Injury occurred 2 weeks ago. Orthopedic consult will be done here now [facility] Medical records reviewed: No recent visit for this complaint Differential considered: Includes but not limited to hip fracture hip dislocation Imaging studies independently reviewed: X-ray right hip with pelvis displaced fracture of the right greater trochanter MRI right hip shows greater troch fracture, ultrasound right and left foot pulses intact. Consultations: 11:[address] Costello, orthopedic, would like patient to have MRI without contrast now to rule out intertrochanteric fracture., if negative patient can be discharged home with a walker and he will follow up with patient in the clinic. 5:09 p.m.. Spoke with orthopedic again, Dr. Costello, he has reviewed the MRI report and reviewed the MRI. Is not think patient needs surgery at this time. He would like patient discharge home to use his home walker and see him in the office specifically Treatments: None indicated at this time Re-evaluations: 5:10 p.m.. 5:15 p.m. updated patient and family results. Patient does not want to be admitted. He desires to be discharged home. They do have a walker at home. Pain is controlled. Return precautions reviewed. Inform them that they need to aspirate Dr. Costello directly when they call for the office tomorrow Discussion: Appropriate for discharge home exam is reassuring. Leg is neurovascularly intact. Return precautions reviewed. Pain is controlled. Orthopedist was consulted. Return precautions reviewed and they desire discharge home Diagnosis: Right greater trochanteric fracture Discharge Plan Departure Patient Disposition: Home Clinical Impression: Closed fracture of greater trochanter of femur Qualifiers: Encounter type: initial encounter Fracture alignment: displaced Laterality: right Qualified Code(s): S72.111A - Displaced fracture of greater trochanter of right femur, initial encounter for closed fracture Instructions: DI for Hip Fracture, DI for Fracture Activity Restrictions/Additional Instructions: Your type of hip fracture is reassuring, at this time it does not need to be operated on. An orthopedic surgeon has reviewed your x-rays and MRI. You will need to continue using your walker at home. Please call his office tomorrow, asked for Dr. Kowalski to see you in the office. He was on-call today. Return if worse if any questions or concerns Prescriptions: No Action calcitonin (salmon) 200 unit/actuation spray,non-aerosol 1 spray intranasal (ALT) DAILY 90 Days Qty: 3.7 2RF Rx Instructions: sacral fx folic acid 1 mg tablet 1 mg PO DAILY Qty: 90 3RF furosemide 20 mg tablet 20 mg PO DAILY Qty: 90 3RF metoprolol succinate 25 mg tablet extended release 24 hr 12.5 mg PO DAILY Qty: 90 3RF lisinopril 40 mg tablet 40 mg PO DAILY Qty: 90 3RF tamsulosin 0.4 mg capsule 0.4 mg PO ONCE PM Qty: 90 3RF esomeprazole magnesium 20 mg capsule,delayed release(DR/EC) 20 mg PO DAILY Qty: 90 3RF atorvastatin 20 mg tablet 20 mg PO DAILY dorzolamide-timolol 22.3-6.8 mg/mL drops EYE-BOTH clopidogrel 75 mg tablet 75 mg PO DAILY aspirin 325 mg tablet 325 mg PO DAILY sodium chloride 1,000 mg tablet,soluble 2,000 mg PO DAILY latanoprost 0.005 % drops 1 drp EYE-LEFT BEDTIME Patient Comments: INSTILL 1 DROP IN THE LEFT EYE EVERY NIGHT AT BEDTIME ferrous sulfate [Feosol] 325 mg (65 mg iron) tablet 325 mg PO DAILY Referrals: Vishal Leavitt MD [Primary Care Provider] - Romeo Kowalski MD [Physician] - Stand Alone Forms: Patient Portal/API/Survey
--- NOTE | 2024-05-01 11:15 | PC.NURSE ---
Addendum entered by Carla Ramsay R.N. 05/01/24 11:19: Unable to palpate or auscultate bilateral pedal pulses on doppler. Original Note: Bilateral ankle and foot swelling noted.
--- NOTE | 2024-05-01 11:17 | DI.MRI.S_ITS ---
PROCEDURE: MR HIP RT WO CON INDICATIONS: Right Greater trochanteric fracture/rule out intertrochanteric fx TECHNIQUE: Noncontrast coronal T1 spin echo and STIR through the bony pelvis. Coronal and axial T2 fast spin echo with fat saturation, sagittal T1 spin echo, and oblique axial T2 fast spin echo with fat saturation through the hip. COMPARISON: [facility], US, US EXTREMITY NONVASC LOWER RT, 05/01/2024, 15:24. [facility], MR, MR PELVIS WO/W CON, 03/30/2024, 13:45. [facility], CR, XR HIP W PEL IF DONE MATTHEW 3TO4V, 05/01/2024, 10:23. FINDINGS: Image quality: Excellent. Bones: Marrow edema is present at the right proximal femoral intertrochanteric region, related to an avulsed greater trochanteric fracture fragment (2/11). There is incomplete extension of marrow edema and T1 hypointense fracture lines into the intertrochanteric region (2/15; 3/14), without involvement of the lesser trochanter or femoral calcar region. Otherwise, the marrow signal is within normal limits. There is no marrow replacement of the visualized axial and appendicular skeleton to suggest an underlying neoplastic process. Joints: The sacroiliac joints are preserved, without reactive marrow changes. The hip joints are preserved. There is no significant right hip joint effusion or pericapsular edema. Acetabular cartilage: There is mild diffuse thinning of the right hip acetabular cartilage. Labrum: There is blunting of the anterior-superior labrum without a large paralabral cyst or chondrolabral separation. Bursae: There is no increased fluid within the greater trochanteric or iliopsoas bursae. Muscles: Intramuscular edema is present within the right gluteus minimus/medius, quadratus femoris, and adductor musculature (4/5-27). Similar findings are present at the left hip (3/16). Tendons: The right gluteus tendons remain attached to the avulsive greater trochanteric fragment. The tendons about the pelvis otherwise appear normal in signal and size. Nerves: The sciatic nerves are normal in signal and caliber. Vessels: The dominant flow voids are preserved. Other: Susceptibility artifact is present at the lower lumbar spine and pelvis secondary to fixation hardware and a left vascular stent. IMPRESSION: 1. Right hip greater trochanteric avulsive fracture with incomplete intertrochanteric extension. No evidence of underlying neoplasm on this unenhanced exam. 2. Traumatic strains of the bilateral hip musculature, greater on the right. Dictated by: Bandar Esposito M.D. on 05/01/2024 at 15:53 Approved by: Bandar Esposito M.D. on 05/01/2024 at 16:08
--- NOTE | 2024-05-01 15:00 | DI.US.S_ITS ---
PROCEDURE: US EXTREMITY NONVASC LOWER RT INDICATIONS: Assess pedal/posterior tibial pulses TECHNIQUE: Real-time scanning was performed of the lower extremity arteries , with image documentation. COMPARISON: None. FINDINGS: Right distal posterior tibial artery velocity of 25 centimeters/second, monophasic waveforms. Right distal dorsalis pedis artery velocity of 30 centimeters/second with biphasic waveforms. Left distal posterior tibial artery velocity of 32 centimeters/second with biphasic waveforms. Left distal dorsalis pedis artery velocity of 55 centimeters/second with biphasic waveforms. No significant plaque is seen bilaterally. IMPRESSION: Velocities and waveforms as above. No significant stenosis. Dictated by: Pedro Gomez M.D. on 05/01/2024 at 16:18 Approved by: Pedro Gomez M.D. on 05/01/2024 at 16:20
== END 2024-05-01 17:14 | disposition home or self-care (01) ==
PROVIDERS: Emergency Provider Emergency Medicine; PCP Family Medicine
DX: S72.111A Displaced fracture of greater trochanter of right femur, initial encounter for closed fracture (principal); S22.080A Wedge compression fracture of T11-T12 vertebra, initial encounter for closed fracture; M51.360 Other intervertebral disc degeneration, lumbar region with discogenic back pain only; M51.370 Other intervertebral disc degeneration, lumbosacral region with discogenic back pain only; M47.816 Spondylosis without myelopathy or radiculopathy, lumbar region; M47.817 Spondylosis without myelopathy or radiculopathy, lumbosacral region; I10 Essential (primary) hypertension; F17.200 Nicotine dependence, unspecified, uncomplicated; M41.9 Scoliosis, unspecified; M25.551 Pain in right hip; Z98.1 Arthrodesis status; W18.30XA Fall on same level, unspecified, initial encounter
CPT/HCPCS: 72100; 73522; 73721; 76882; 99281; 99284

== ENCOUNTER 2024-10-13 15:40 | Inpatient (IN) | payer MEDICARE, SELFPAY ==
[2024-10-13] VITALS (13 sets, daily range): BP systolic 108–178; BP diastolic 57–85; PULSE 75–118; RESP 13–21; TEMP 36.2–36.5; O2SAT 94–97; BMI 14.9; BMI 16.1
--- NOTE | 2024-10-13 15:53 | DI.RAD.S_ITS ---
PROCEDURE: XR CHEST 1V INDICATIONS: Chest Pain TECHNIQUE: One view of the chest was acquired. COMPARISON: [facility], , XR CHEST 2V, 10/18/2022, 13:19. [facility], , CHEST 2 VIEW, 12/20/2013, 8:39. FINDINGS AND IMPRESSION: On this single view study, no dense airspace disease or pleural effusion. Suspected emphysematous changes are present. Mediastinal contours are indeterminate due to patient rotation. Normal heart size. Aortic calcifications. Degenerative osseous findings. Dictated by: Landon Wong M.D. on 10/13/2024 at 15:30 Approved by: Landon Wong M.D. on 10/13/2024 at 15:31
--- NOTE | 2024-10-13 15:55 | EKG_ITS ---
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
[2024-10-13 16:01] LABS: Add Manual Diff / Slide Review NO; Hematocrit 32.8 % (41-53); Hemoglobin 11.4 g/dL (13.5-17.5); INR 0.9 (0.9-1.3); Lymphocytes Absolute Auto 800 /uL (1100-4500); Mean Corpuscular HGB Conc 34.7 % (30-36); Mean Corpuscular Hemoglobin 33.2 PG (26-34); Mean Corpuscular Volume 95.6 fL (80-100); Platelet Count 355 X10^3/uL (150-400); Prothrombin Time 10.5 SECONDS (9.4-12.5)
[2024-10-13 16:03] LABS: PTT Partial Thromboplastin Tim 28 SECONDS (25.1-36.5)
[2024-10-13 16:04] LABS: Alanine Aminotransferase 19 IU/L (<50); Albumin 3.7 g/dL (3.5-5.0); Albumin Globulin Ratio 1.2 (1.0-2.8); Alkaline Phosphatase 138 U/L (38-126); Blood Urea Nitrogen 6 mg/dL (9-20); Calcium 8.5 mg/dL (8.4-10.2); Carbon Dioxide 31 mmol/L (22-32); Chloride 85 mmol/L (98-107); Creatine Kinase 62 U/L (55-170); Estimated Glomerular Filt Rate > 60 mL/min (>60); Globulin 3.0 g/dL (1.7-4.1); Glucose 142 mg/dL (70-99); HEMOLYSIS < 15 (0-50); Lipase 134 U/L (23-300); Magnesium 1.2 mg/dL (1.6-2.3); Potassium 3.0 mmol/L (3.4-5.1); Sodium 122 mmol/L (137-145); Total Protein 6.7 g/dL (6.3-8.2)
[2024-10-13 16:16] LABS: NT-proBNP (BNP-Adult 18+) 557 pg/mL (<450); Troponin I < 0.012 ng/mL (0.01-0.034)
--- NOTE | 2024-10-13 17:09 | ED.EXTPRO ---
HPI - Extremity Problem General Chief complaint: Extremity Problem,Nontraumatic Stated complaint: Groin Pain History of Present Illness HPI Narrative: 79-year-old gentleman past medical history hypertension, PVD with left lower extremity bypass graft on plavix and aspirin had a mechanical fall about a week and a half ago whereby he slipped and fell but did not seek out immediate treatment and over the past week and a half has had gradual increased pain and decreased mobility making it difficult now to function with activities of daily living brought in via EMS today for further evaluation. Patient denies headache dizziness neck pain chest pain shortness of breath blurred vision bowel bladder incontinence. He has taken OTC med for pain control with no significant relief of his symptoms. Other than what is stated 14 point review of system is negative. Related Data Home Medications ?Medication ?Instructions ?Recorded ?Confirmed latanoprost 0.005 % eye drops 1 drp EYE-LEFT BEDTIME 09/03/22 08/07/24 aspirin 325 mg tablet 325 mg PO DAILY 10/25/23 08/07/24 clopidogrel 75 mg tablet 75 mg PO DAILY 10/25/23 08/07/24 dorzolamide 22.3 mg-timolol 6.8 EYE-BOTH 10/25/23 08/07/24 mg/mL eye drops ferrous sulfate 325 mg (65 mg 325 mg PO DAILY 02/08/24 08/07/24 iron) tablet (Feosol) Previous Rx's ?Medication ?Instructions ?Recorded folic acid 1 mg tablet 1 mg PO DAILY #90 tabs 10/18/23 metoprolol succinate 25 mg 12.5 mg (1/2 x 25 mg) PO DAILY #90 10/26/23 tablet,extended release 24 hr tabs tamsulosin 0.4 mg capsule 0.4 mg PO ONCE PM #90 caps 02/24/24 esomeprazole magnesium 20 mg 20 mg PO DAILY #90 caps 02/27/24 capsule,delayed release sodium chloride 1,000 mg soluble 1,000 mg PO BID #180 tabs 05/09/24 tablet atorvastatin 20 mg tablet 20 mg PO DAILY #90 tabs 07/02/24 calcitonin (salmon) 200 See Rx Instructions .Route 07/17/24 unit/actuation nasal spray .COMPLEX #3.7 mL furosemide 20 mg tablet 20 mg PO DAILY #90 tabs 08/16/24 lisinopril 40 mg tablet 40 mg PO DAILY #90 tabs 10/11/24 Allergies Allergy/AdvReac Type Severity Reaction Status Date / Time No Known Drug Allergies Allergy Verified 07/26/24 10:12 Review of Systems Review of Systems ROS Unobtainable: All systems reviewed & are unremarkable except as noted in HPI and below Patient History Medical History Urinary retention Hypertension Osteoarthritis T12 compression fracture Scoliosis Compression fracture of L3 lumbar vertebra Chronic obstructive pulmonary disease (01/07/14) Surgical History Anesthesia History of inguinal hernia repair Family History Mother Hyperlipidemia Sister No problems noted. Social History marital status: household members: significant other occupational status: previously employed alcohol intake: current substance use type: does not use alcohol intake frequency: 3 or more drinks per day Exam Narrative Exam Narrative: GENERAL: [79] year old patient appears stated age. Well-developed patient, in mild distress. HEAD: Atraumatic. Normocephalic. EYES: Pupils equal round and reactive. Extraocular motions intact. No scleral icterus. No injection or drainage. ENT: Nose without bleeding, purulent drainage. Throat without erythema, tonsillar hypertrophy or exudate. Airway patent. NECK: Trachea midline. Non tender CARDIOVASCULAR: Regular rate and rhythm without murmurs, gallops, or rubs. RESPIRATORY: Clear to auscultation. Breath sounds equal bilaterally. No wheezes, rales, or rhonchi. GASTROINTESTINAL: Abdomen soft, non-tender, nondistended. EXTREMITIES: No edema or joint tenderness. TTP L groin decrease in range of motion in all direction, motor sensory intact BACK: Nontender without deformity or crepitance. No flank tenderness. NEURO: AOx3. SKIN: No rash or erythema of visible areas Initial Vital Signs Initial Vital Signs: Vital Signs Pulse Rate 116 H 10/13/24 15:49 Respiratory Rate 20 10/13/24 15:49 Blood Pressure 145/67 H 10/13/24 15:49 Pulse Oximetry 96 10/13/24 15:49 Oxygen Delivery Method Room Air 10/13/24 15:49 Course Orders Ordered: ED Orders 10/13/24 15:46 Complete Blood Count AUTO DIFF Stat Comprehensive Metabolic Panel Stat Lipase Stat Magnesium Stat NT-proBNP (BNP-Adult 18+) Stat PTT Partial Thromboplastin [place] Stat Prothrombin Time INR Stat Troponin & CK Cardiac Panel Stat 10/13/24 15:53 XR chest 1V Stat EKG-12 Lead Stat Vital Signs Vital signs: Vital Signs - 8 hr 10/13/24 15:49 Pulse Rate 116 H Respiratory Rate 20 Blood Pressure 145/67 H Pulse Oximetry 96 Oxygen Delivery Method Room Air MDM - Extremity (Nontraumatic) Lab Data 10/13/24 15:46 10/13/24 15:46 Labs: Lab Results 10/13/24 Range/Units 15:46 WBC 10.5 (4.5-11.0) X10^3/uL RBC 3.43 L (4.5-5.9) X10^6/uL Hgb 11.4 L (13.5-17.5) g/dL Hct 32.8 L (41-53) % MCV 95.6 (80-100) fL MCH 33.2 (26-34) PG MCHC 34.7 (30-36) % RDW 13.7 (11.6-14.8) % Plt Count 355 (150-400) X10^3/uL Neut % (Auto) 81.1 H (50-75) % Lymph % (Auto) 8.0 L (25-40) % [place] % (Auto) 10.0 (3-14) % Eos % (Auto) 0.5 L (2-4) % Baso % (Auto) 0.4 (0-2) % Neut # (Auto) 8500 H (1921-4178) /uL Lymph # (Auto) 800 L (3297-7641) /uL [place] # (Auto) 1000 H (0-900) /uL Eos # (Auto) 100 (0-450) /uL Baso # (Auto) 0 (0-100) /uL PT 10.5 (9.4-12.5) SECONDS INR 0.9 (0.9-1.3) APTT 28 (25.1-36.5) SECONDS Sodium 122 L (137-145) mmol/L Potassium 3.0 L (3.4-5.1) mmol/L Chloride 85 L (98-107) mmol/L Carbon Dioxide 31 (22-32) mmol/L BUN 6 L (9-20) mg/dL Creatinine 0.78 (0.66-1.25) mg/dL Estimated GFR > 60 (>60) mL/min BUN/Creatinine Ratio 7.7 (6-22) Glucose 142 H (70-99) mg/dL Calcium 8.5 (8.4-10.2) mg/dL Magnesium 1.2 L (1.6-2.3) mg/dL Total Bilirubin 1.0 (0.2-1.3) mg/dL AST 33 (17-59) IU/L ALT 19 (<50) IU/L Alkaline Phosphatase 138 H (38-126) U/L Total Creatine Kinase 62 (55-170) U/L Troponin I < 0.012 (0.01-0.034) ng/mL NT-Pro-B Natriuret Pep 557 H (<450) pg/mL Total Protein 6.7 (6.3-8.2) g/dL Albumin 3.7 (3.5-5.0) g/dL Globulin 3.0 (1.7-4.1) g/dL Albumin/Globulin Ratio 1.2 (1.0-2.8) Lipase 134 (23-300) U/L Imaging Data CT scan - abdomen/pelvis: Radiologist's Impression: [place] [address] CT Scan Report Signed Patient: Ramesh Em MR#: [id number] : 1945 Acct:[id number] Age/Sex: 79 / M Date of Service: 10/13/24 Loc: ED Accession Number: [id number] Procedure: CT pelvis wo con Ordering Provider: Alireza Mason D.O. PROCEDURE: CT PEL WO CON INDICATIONS: fall/trauma TECHNIQUE: Noncontrast 3 mm axial sections acquired through the bony pelvis, with coronal and sagittal reformatting. COMPARISON: [facility], CT, CT CHEST ABD PEL WO CON, 10/21/2022, 11:40. XR PELVIS WITH LATERAL HIP RIGHT, 06/20/2024, 10:32. FINDINGS: Image quality: Diagnostic Bones: Suspect old fracture deformity and ossification adjacent to the right greater trochanter. No pubic diastasis. No sacroiliac dislocation. Lower lumbar postsurgical changes and fusion construct is partially seen. Bilateral hip arthrosis. Questionable nondisplaced lucency is seen at the left greater trochanter. Soft tissues: Vascular stents. Distended urinary bladder. Prostate calcifications, nonspecific. IMPRESSION: Possible nondisplaced fracture lucency versus artifact at the left greater trochanter. There is no displacement. (Coronal image ) Age-indeterminate deformities and ossifications of the right greater trochanter also seen, favored chronic. Correlate with location of symptoms. No dislocation or pelvic ring disruption. Background degenerative changes. If there is high concern for further derangement, consider MRI evaluation. ECG Data Interpretation: Sinus Tach HR 116 VT 152 QRS [address]-t wave change No previous EKG to compare against MDM Narrative Medical decision making narrative: Vital signs, nurse triage note, lab work previous ER visits and all imaging modalities reviewed. CT pelvis showed possible nondisplaced fracture lucency versus artifact at the left greater trochanter. There is no displacement. Age indeterminate deformities in the os ossification of the right greater trochanter also seen favored chronic. No dislocation or pelvic ring disruption. Background degenerative changes. Patient given [place] here, NS 1L bolus, Krider and Mag sulfate IV x1. Case d/w Dr.Reem Zoie Montgomery no surgery, weight bearing as tolerated. Case discussed with who has graciously accepted patient for inpatient admission. Differential dx - fracture, dislocation, contusion, electrolyte derangement, dehydration, stemi, nstemi, pneumonia, uti. Discharge Plan Departure Patient Disposition: Admitted As Inpatient Clinical Impression: Acute hyponatremia, Hypokalemia, Hypomagnesemia Closed fracture of greater trochanter of femur Qualifiers: Encounter type: initial encounter Fracture alignment: nondisplaced Laterality: left Qualified Code(s): S72.115A - Nondisplaced fracture of greater trochanter of left femur, initial encounter for closed fracture Admit Date/Time: 10/13/24 18:19
[2024-10-13] MEDS: HYDROCODONE/ACET 5/325 TABLET 1 TAB PO ×2 (17:22→21:01)
[2024-10-13] MEDS: POTASSIUM CHLORIDE IN WATER 10 MEQ/100 ML PIGGYBACK 100 MEQ IV ×4 (18:10→22:58)
[2024-10-13] MEDS: LACTATED RINGERS 1,000 ML 1000 ML IV (18:11)
[2024-10-13 18:16] LABS: Culture Indicated Urine Specimen Cultured
[2024-10-13] MEDS: MAGNESIUM SULFATE 2 GM/50 ML PIGGYBACK IV (18:22)
[2024-10-13] MEDS: SODIUM CHLORIDE 0.9% 500 ML 1000 ML IV (19:47)
[2024-10-13] MEDS: SODIUM CHLORIDE 0.9% 1,000 ML 100 ML IV (22:58)
[2024-10-13] MEDS: SODIUM CHLORIDE 1,000 MG TABLET 1000 MG PO (22:58)
[2024-10-13] MEDS: DOCUSATE 100 MG CAPSULE PO (22:59)
[2024-10-13] MEDS: TAMSULOSIN 0.4 MG CAPSULE PO (22:59)
[2024-10-14] VITALS (7 sets, daily range): BP systolic 109–134; BP diastolic 59–72; PULSE 73–80; RESP 15–17; TEMP 36.3–36.6; O2SAT 93–94
[2024-10-14] MEDS: HYDROCODONE/ACET 5/325 TABLET 1 TAB PO ×4 (03:22→20:29)
[2024-10-14 06:02] LABS: Add Manual Diff / Slide Review NO; Hematocrit 26.1 % (41-53); Hemoglobin 9.2 g/dL (13.5-17.5); Lymphocytes Absolute Auto 900 /uL (1100-4500); Mean Corpuscular HGB Conc 35.2 % (30-36); Mean Corpuscular Hemoglobin 33.8 PG (26-34); Mean Corpuscular Volume 95.9 fL (80-100); Platelet Count 274 X10^3/uL (150-400)
[2024-10-14] MEDS: PANTOPRAZOLE DR 40 MG TABLET PO (06:20)
[2024-10-14 06:51] LABS: Alanine Aminotransferase 12 IU/L (<50); Albumin 2.4 g/dL (3.5-5.0); Albumin Globulin Ratio 0.9 (1.0-2.8); Alkaline Phosphatase 104 U/L (38-126); Blood Urea Nitrogen 5 mg/dL (9-20); Calcium 7.4 mg/dL (8.4-10.2); Carbon Dioxide 31 mmol/L (22-32); Chloride 90 mmol/L (98-107); Estimated Glomerular Filt Rate > 60 mL/min (>60); Globulin 2.6 g/dL (1.7-4.1); Glucose 89 mg/dL (70-99); HEMOLYSIS < 15 (0-50); Magnesium 1.5 mg/dL (1.6-2.3); Potassium 3.3 mmol/L (3.4-5.1); Sodium 122 mmol/L (137-145); Total Protein 5.0 g/dL (6.3-8.2)
--- NOTE | 2024-10-14 08:46 | P.HP_ITS ---
History of Present Illness History of Present Illness Date Patient Seen: 10/14/24 Time Patient Seen: 08:46 Chief complaint: Groin Pain Narrative: This is a very pleasant 79-year-old male who is under the primary care of Dr. Leavitt who presents to the ER with complaints of left groin pain which started 1 week ago after a ground level fall. He has become increasingly immobile and unable to ambulate. Patient was found to have a left greater trochanteric fracture that was nondisplaced 79-year-old gentleman past medical history hypertension, BPH, COPD, prostate cancer, PVD with left lower extremity bypass graft on plavix and aspirin had a mechanical fall about a week and a half ago whereby he slipped and fell but did not seek out immediate treatment and over the past week and a half has had gradual increased pain and decreased mobility making it difficult now to function with activities of daily living brought in via EMS today for further evaluation. He has taken OTC med for pain control with no significant relief of his symptoms. Patient denies chest pain or significant shortness of breath. He denies head injury. Patient denies any changes in his chronic urinary problems Patient has a history of incomplete bladder emptying but he denies a problem No change in bowel or bladder Other than what is stated 14 point review of system is negative. Past medical history: 1. Peripheral vascular disease status post left lower extremity bypass graft and on aspirin and Plavix 2. Hyperlipidemia 3. Prostate cancer that is being followed with observation per Dr. Harris 4. COPD 5. Hyperlipidemia 6. Tobacco use chronic 7. Glaucoma 8. Hypertension 9. Anemia of chronic disease 10. Compression fractures 11. In April 2024 patient had a right greater trochanteric avulsion fracture No known drug allergies Past surgical history: Left lower extremity bypass graft Inguinal hernia repair Family history: Mom with hyperlipidemia Sister with no chronic medical problems Social history: Patient is a in a home with his significant other Patient isn't every day smoker [facility] Medical History Urinary retention Hypertension Osteoarthritis T12 compression fracture Scoliosis Compression fracture of L3 lumbar vertebra Chronic obstructive pulmonary disease (01/07/14) Surgical History Anesthesia History of inguinal hernia repair Family History Mother Hyperlipidemia Sister No problems noted. Social History marital status: household members: significant other occupational status: previously employed Smoking Status: Current every day smoker alcohol intake: current substance use type: does not use Meds Home Medications and Allergies Home Medications ?Medication ?Instructions ?Recorded ?Confirmed ?Type latanoprost 0.005 % eye drops 1 drp EYE-LEFT BEDTIME 0 09/03/22 10/13/24 History folic acid 1 mg tablet 1 mg PO DAILY #90 tabs 10/1710/13/24 Rx aspirin 325 mg tablet 325 mg PO DAILY 10/25/2309/02 History clopidogrel 75 mg tablet 75 mg PO DAILY 10/25/2309/02 History dorzolamide 22.3 mg-timolol 6.8 EYE-BOTH 10/25/2307/11 History mg/mL eye drops metoprolol succinate 25 mg 12.5 mg (1/2 x 25 mg) PO DA ELIAS #90 10/26/23 10/13/24 Rx tablet,extended release 24 hr tabs ferrous sulfate 325 mg (65 mg 325 mg PO DAILY 02/08/24 10/13/24 History iron) tablet (Feosol) tamsulosin 0.4 mg capsule 0.4 mg PO ONCE PM #90 caps 1 04/25/23 10/13/24 Rx esomeprazole magnesium 20 mg 20 mg PO DAILY #90 caps 1 04/28/23 10/13/24 Rx capsule,delayed release sodium chloride 1,000 mg soluble 1,000 mg PO BID #180 tabs 05/09/24 10/13/24 Rx tablet atorvastatin 20 mg tablet 20 mg PO DAILY #90 tabs 03/08/0310/13/24 Rx calcitonin (salmon) 200 See Rx Instructions .Route 0 07/17/24 10/13/24 Rx unit/actuation nasal spray .COMPLEX #3.7 mL furosemide 20 mg tablet 20 mg PO DAILY #90 tabs 05/0 12/0310/13/24 Rx lisinopril 40 mg tablet 40 mg PO DAILY #90 tabs 07/0 07/0310/13/24 Rx Allergies Allergy/AdvReac Type Severity Reaction Status Date / Time No Known Drug Allergies Allergy Verified 07/26/24 10:12 Exam Vital Signs (past 8 hours): - 10/14/24 04:47 Temperature 97.3 F L Pulse Rate 73 Respiratory Rate 16 Blood Pressure 123/67 Pulse Oximetry 94 Oxygen Flow Rate 0 Oxygen Delivery Method Room Air Oxygen Flow Rate 0 Narrative Exam Narrative: Afebrile vital signs are stable HEENT unremarkable Neck: Supple without adenopathy or thyromegaly Chest: Clear to auscultation without wheezes rhonchi or crackles but prolonged expiratory phase Cor regular rate and rhythm with distant S1-S2 Abdomen: Positive bowel sounds, soft, nontender, nondistended Extremities: No edema pulses intact. No tenderness over greater trochanter Objective Labs 10/14/24 05:40 10/14/24 05:40 Labs: Laboratory Results - last 24 hr 10/13/24 10/13/24 10/14/24 15:46 17:51 05:40 WBC 10.5 6.9 RBC 3.43 L 2.72 L Hgb 11.4 L 9.2 L Hct 32.8 L 26.1 L MCV 95.6 95.9 MCH 33.2 33.8 MCHC 34.7 35.2 RDW 13.7 13.6 Plt Count 355 274 Neut % (Auto) 81.1 H 71.8 Lymph % (Auto) 8.0 L 12.8 L [place] % (Auto) 10.0 13.2 Eos % (Auto) 0.5 L 1.8 L Baso % (Auto) 0.4 0.4 Neut # (Auto) 8500 H 5000 Lymph # (Auto) 800 L 900 L [place] # (Auto) 1000 H 900 Eos # (Auto) 100 100 Baso # (Auto) 0 0 PT 10.5 INR 0.9 APTT 28 Sodium 122 L 122 L Potassium 3.0 L 3.3 L Chloride 85 L 90 L Carbon Dioxide 31 31 BUN 6 L 5 L Creatinine 0.78 0.73 Estimated GFR > 60 > 60 BUN/Creatinine Ratio 7.7 6.8 Glucose 142 H 89 Calcium 8.5 7.4 L Magnesium 1.2 L 1.5 L Total Bilirubin 1.0 1.3 AST 33 26 ALT 19 12 Alkaline Phosphatase 138 H 104 Total Creatine Kinase 62 Troponin I < 0.012 NT-Pro-B Natriuret Pep 557 H Total Protein 6.7 5.0 L Albumin 3.7 2.4 L Globulin 3.0 2.6 Albumin/Globulin Ratio 1.2 0.9 L Lipase 134 Urine RBC None seen Urine WBC 5-10/hpf H Ur Squamous Epith Cells None seen Urine Bacteria Many (>30) H Ur Culture Indicated? Specimen cultured Vol Urine Centrifuged 10ml (spun) Assessment & Plan Assessment & Plan narrative: 79-year-old male who sustained a fall a week and half ago and sustained a left trochanteric nondisplaced fracture. Patient has become increasingly and mobile and was found to have more significant hyponatremia, hypokalemia, hypomagnesemia and inability to ambulate. He was admitted for treatment of the above. Assessment 1. Left trochanteric nondisplaced fracture. Consultation with Dr. Blunt from Orthopedics and she stated that patient could be weight-bearing as tolerated and no surgical intervention was indicated. Plan: Will work with physical therapy occupational therapy and continue with pain control which is long as he does not move is well-controlled as well as with DVT prophylaxis and patient will likely need placement temporarily. Assessment 2. Hyponatremia chronic long history in patient who is a smoker with COPD slightly worse. Plan: Will continue with a normal saline replacement but decreased rate and continue with salt tablets and will recheck in a.m.. He may need further workup for etiology. Assessment 3. Hypokalemia slightly improved. Will give oral potassium today Assessment 4. Hypomagnesemia improved but still low Plan: Will give more magnesium Assessment 5. COPD not oxygen dependent Plan: We will continue to monitor no current symptoms Assessment 6. Chronic tobacco use Plan: Patient declines nicotine patch Assessment 7. GERD Plan: Will continue outpatient Nexium Assessment 8. BPH with prostate cancer Plan: Continue tamsulosin Assessment 9. Hyperlipidemia with history of peripheral vascular disease Plan: Will continue with Plavix and atorvastatin Assessment 10. Anemia of chronic he is with worsening suspect related to delusional Plan: Will do iron and guaiac and continue to follow. Will do iron studies vitamin B12 and folate Assessment 11. Hypertension Plan: Continue with same lisinopril 40 mg daily metoprolol 12.5 mg twice daily Assessment 12. Glaucoma Plan: Continue outpatient drops 78 minute spent with patient in discussing with physicians, nursing, reviewing his clinic chart and hospital chart and meeting with patient and formulating a plan and documentation Code status is full code Time-Based Coding :: [TOTAL MINUTES] spent with patient and on the chart (including review of chart, obtaining history, exam, reviewing outside data, placing orders, documenting exam and treatment plan, and counseling patient) on [DATE]. Quality VTE Deep Vein Thrombosis/Pulmonary Embolism Present on Admission: No
[2024-10-14] MEDS: SODIUM CHLORIDE 0.9% 1,000 ML 100 ML IV ×2 (08:52→22:03)
[2024-10-14] MEDS: ATORVASTATIN 20 MG TABLET PO (08:53)
[2024-10-14] MEDS: FUROSEMIDE 20 MG TABLET PO (08:53)
[2024-10-14] MEDS: CLOPIDOGREL 75 MG TABLET PO (08:53)
[2024-10-14] MEDS: METOPROLOL ER 25 MG TABLET 12.5 MG PO (08:53)
[2024-10-14] MEDS: DOCUSATE 100 MG CAPSULE PO ×2 (08:53→20:29)
[2024-10-14] MEDS: ASPIRIN EC 325 MG TABLET PO (08:53)
[2024-10-14] MEDS: FOLIC ACID 1 MG TABLET PO (08:55)
[2024-10-14] MEDS: SODIUM CHLORIDE 1,000 MG TABLET 1000 MG PO ×2 (08:56→20:30)
[2024-10-14] MEDS: FERROUS SULFATE 325 MG TABLET PO (08:56)
[2024-10-14] MEDS: ENOXAPARIN 30 MG/0.3 ML SYRINGE SUBCUT (10:20)
[2024-10-14] MEDS: CALCITONIN,SALMON, NASAL SPRAY 1 SPRAYS NASAL (10:21)
[2024-10-14] MEDS: MAGNESIUM CHLORIDE 64 MG TABLET 128 MG PO (10:21)
[2024-10-14] MEDS: POTASSIUM CHLORIDE 20 MEQ TAB PO ×2 (10:21→17:23)
--- NOTE | 2024-10-14 13:24 | PT.IIE ---
Surgical History (Last Reviewed 10/14/24 @ 08:48 by Beckie Cox MD) Anesthesia History of inguinal hernia repair Medical History (Last Reviewed 10/14/24 @ 08:48 by Beckie Cox MD) Chronic obstructive pulmonary disease (01/07/14) Compression fracture of L3 lumbar vertebra Hypertension Osteoarthritis Scoliosis T12 compression fracture Urinary retention Physical Therapy Inpatient Evaluation/Re-Eval M1 PT/OT-IP Prior Functional Status Start: 10/14/24 13:11 Freq: NEEDED Status: Active Protocol: Document 10/14/24 12:55 MB (Rec: 10/14/24 13:24 MB Desktop) Medical Review Prior Functional Status Medical History Yes Reviewed Communication Poor dentition and pt has low body mass, unsure his baseline diet. Reports routine of drinking pot of coffee, smoking in a.m. and having a cocktail at night. Coughing and PATE with talking at rest today. Mobility and Gait Pt reports he gait trains with rollator and gait trains on flight of steps to basement to shower Activities of Daily Pt reports he drives and is I with bathing and dressing Living and IADL's , reports fall and then at a later time, increased pain when girlfriend pulled off compression hose Social History Household Members significant other Living Arrangements House Number of Floors ( Two Floors Floors) Number of Stairs To 3-4 steps with right rail ascend to enter home, flight Enter/Railing? of steps downstairs to BR with elevated toilet and walk -in shower with rail on the left descend Home Environment Standard Height Toilet,High Toilet,Walk in Shower Home Equipment Four Wheel Walker,Hand Held Shower Employment Status Retired M2 PT-IP Current Condition Start: 10/14/24 13:11 Freq: NEEDED Status: Active Protocol: Document 10/14/24 12:55 MB (Rec: 10/14/24 13:24 MB Desktop) Physical Therapy Current Condition Current Condition Evaluation Date 10/14/24 Treatment Diagnosis L groin pain with possible non-displaced fx lucency vs artifact greater tro M3 PT-IP Subjective Start: 10/14/24 13:11 Freq: NEEDED Status: Active Protocol: Document 10/14/24 12:55 MB (Rec: 10/14/24 13:24 MB Desktop) Subjective Physical Therapy Visit Type Type Initial Evaluation Visit Start Time 12:55 Visit Stop Time 13:10 Number of S[employer]IOR [employer] 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 Therapy Pain Assessment Pain When Pain Assessed At Rest Pain Present Pain Present Pain Reported Location Left groin Scale Used Not rated M4 PT-IP Mobility and Gait Start: 10/14/24 13:11 Freq: NEEDED Status: Active Protocol: Document 10/14/24 12:55 MB (Rec: 10/14/24 13:24 MB Desktop) PT-Transfer Assessment Comments Mobility Comments Pt declines rolling, bed mobility and OOB after attempting AROM and MMT in bed d/t left groin pain M5 PT-IP Objective Assessments Start: 10/14/24 13:11 Freq: NEEDED Status: Active Protocol: Document 10/14/24 12:55 MB (Rec: 10/14/24 13:24 MB Desktop) Orientation Orientation/Cognition Level of Alertness Alert Orientation Name,Situation Language Function No Deficits Noted Ability Memory Description No Deficits Noted Gross Range of Motion Upper Extremity ROM Impairments Appears functional in bed Lower Extremity ROM Assessment Left Impaired Impairments Pt limits HS LLE d/t pain, states he feels it is better because he can minimally move the leg today Strength Lower Extremity Strength Assessment Bilaterally Impaired Comments Strength Comments B ankle DF 5/5 and decreased B great toe extension to 3 -/5 Coordination Assessment Assessment Coordination Pt cannot tolerate today Comments Sensation Assessment Comments Sensation Comments Denies sensory changes with light touch palpation Muscle Tone Muscle Tone WNL Yes M6 PT-IP Treatment Start: 10/14/24 13:11 Freq: NEEDED Status: Active Protocol: Document 10/14/24 12:55 MB (Rec: 10/14/24 13:24 MB Desktop) Physical Therapy Treatment Exercises Exercises Ankle Pumps Other Treatments Other Treatment Increased B PF tension Performed M7 PT-IP Assessment and Plan Start: 10/14/24 13:11 Freq: NEEDED Status: Active Protocol: Document 10/14/24 12:55 MB (Rec: 10/14/24 13:24 MB Desktop) PT Summary Assessment and Plan Potential Rehabilitation Fair Potential Status of Condition Evolving at Evaluation Summary Impairments Pain,ROM,Strength,Balance,Coordination,Bed Mobility, Transfers,Gait,Activity Tolerance Assessment Summary Pt is an 79 y/o male presenting with left groin pain. He reports a fall, left back, hip and buttock pain but that he could walk. He then states that his doctor told him to wear his compression hose again and he had severe pain when his girlfriend pulled the left compression hose off. He was able to walk after than but then when he got up yesterday, he could not stand up, even with his RW. Per chart, there is a possible non-displaced fx lucency vs artifact left greater trochanter. PT does not see an orthopedic consult/ report and so PT initiates very gentle bed assessment today to see how pain is feeling. He denies sensory changes and his B DFs are WNLs for strength. He self- limits HS and declines bed mobility and OOB d/t ongoing left groin pain and concerns about this. PT does not feel comfortable encouraging WB given pt reports and mechanisms of injury. Recommend orthopedic consult. PT can check in on pt next date but will not push OOB or WB until cleared with WBAT from provider. Goals Bed Mobility Goal Independent Transfer Goal Standby Assistance,Four Wheeled Walker Gait Goal Standby Assistance,Four Wheel Walker Gait Distance 75 Other Goals Pt will ascend and descend flight of steps with no more than CGA with one rail to allow safe home mobility. Days to Meet Goals 5 Frequency of Treatment Frequency Of Once a Day Treatment Treatment Plan Physical Therapy Bed Mobility Training,Transfer Training,Gait Training, Treatment Plan Therapeutic Exercise,Balance Retraining,Discharge Planning,Hot or Cold Pack,Neuromuscular Re-ed, Coordination Retraining,Manual Therapy Weight Bearing Status Allowed Weight No WB order on eval date Bearing Amount ( enter % or #) (%) Recommendations To Nursing Amount of Assist Mechanical Lift Needed Discharge Recommendations PT Discharge SNF Rehab Recommendations Transportation Needs Wheelchair/Cabulance at Discharge - PT assist x2
--- NOTE | 2024-10-14 15:35 | DI.MRI.S_ITS ---
PROCEDURE: MR HIP LT WO CON INDICATIONS: L groin pain TECHNIQUE: Noncontrast coronal T1 spin echo and STIR through the bony pelvis. Coronal and axial T2 fast spin echo with fat saturation, sagittal T1 spin echo, and oblique axial T2 fast spin echo with fat saturation through the hip. COMPARISON: [facility], CT, CT PEL WO CON, 10/13/2024, 17:12. [facility], MR, MR HIP RT WO CON, 05/01/2024, 14:59. FINDINGS: Image quality: Excellent. Bones and joints: Extensive marrow edema involving inter trochanteric region of left proximal femur with internal linear hypointense signal extending to base of greater trochanter. No other area of abnormal marrow signal. Bilateral hip joint osteoarthritic changes are seen. No evidence of avascular necrosis of femoral head. Post fusion changes are seen in included portion of lower lumbar spine. Tendons and ligaments: Tendinosis and low-grade partial-thickness tear involving distal left gluteus medius and minimus tendons at their insertions on greater trochanter is seen. Small amount of fluid distending trochanteric bursa is noted. The nearby proximal iliotibial band also appears intact. The iliopsoas tendon appears intact, without adjacent bursal fluid collections or evidence for impingement syndrome. The origin of the hamstring tendon is intact at the ischial tuberosity. Labrum and cartilage: Fraying of superior anterior left acetabular labrum with T2 hyperintense signal suggestive of superior anterior left acetabular labral tear. Diffuse thinning of articulating cartilage over left femoral head is seen. Soft tissues: Visualized muscles demonstrate normal bulk and internal signal. Quadratus femoris muscle demonstrates no internal edema to suggest ischiofemoral impingement. The proximal sciatic neurovascular bundle appears normal adjacent to the hamstring tendons. No free pelvic fluid. Bladder wall thickness is normal. Genitourinary structures and bowel loops appear normal where visualized. IMPRESSION: 1. Finding is consistent with a subtle nondisplaced fracture involving intertrochanteric region of left proximal femur with marrow edema. No other fracture or dislocation. No evidence of avascular necrosis of femoral head. 2. Distal left gluteus medius and minimus tendinosis and low-grade partial- thickness tear. Small amount of fluid distending trochanteric bursa concerning for low- grade bursitis. 3. Finding is suggestive of superior anterior left acetabular labral tear. Dictated by: Sanket Odell M.D. on 10/14/2024 at 17:03 Approved by: Sanket Odell M.D. on 10/14/2024 at 17:07
[2024-10-14] MEDS: TAMSULOSIN 0.4 MG CAPSULE PO (20:29)
[2024-10-14] MEDS: LATANOPROST 0.005% OPHTH 2.5 ML 1 DROPS EYE-LEFT (20:36)
[2024-10-15] VITALS (8 sets, daily range): BP systolic 111–128; BP diastolic 54–83; PULSE 83–113; RESP 16–18; TEMP 36.3–36.6; O2SAT 92–97
--- NOTE | 2024-10-15 04:20 | PC.NURSE ---
0330 Pt calling out and anxious-attempting to get up and unfastened his IV. Short of breath and states he has to get up and go outside to have a smoke. Reassured Pt of location, safety, redressed, cleaned up, and reattached IV, placed Pt on O2 at 2L for O2 sat 87% on RA (reduced to 1L after Pt calmed down). Pt was able to stand at the bedside with assist and fww-denied pain or discomfort while standing during bedding change. Pt able to side-step and lay back down in bed with assist. Pt stated he must have been having a dream or a panic attack but is feeling better now. Bed alarm on for safety. Pt agrees to call for assistance as needed.
[2024-10-15] MEDS: PANTOPRAZOLE DR 40 MG TABLET PO (05:53)
[2024-10-15 06:27] LABS: Add Manual Diff / Slide Review NO; Hematocrit 29.2 % (41-53); Hemoglobin 10.3 g/dL (13.5-17.5); Lymphocytes Absolute Auto 800 /uL (1100-4500); Mean Corpuscular HGB Conc 35.1 % (30-36); Mean Corpuscular Hemoglobin 34.0 PG (26-34); Mean Corpuscular Volume 97.0 fL (80-100); Platelet Count 282 X10^3/uL (150-400)
[2024-10-15 06:36] LABS: Blood Urea Nitrogen 5 mg/dL (9-20); Calcium 8.0 mg/dL (8.4-10.2); Carbon Dioxide 27 mmol/L (22-32); Chloride 98 mmol/L (98-107); Estimated Glomerular Filt Rate > 60 mL/min (>60); Glucose 104 mg/dL (70-99); HEMOLYSIS < 15 (0-50); Magnesium 1.4 mg/dL (1.6-2.3); Potassium 3.7 mmol/L (3.4-5.1); Sodium 127 mmol/L (137-145)
[2024-10-15 06:37] LABS: HEMOLYSIS < 15 (0-50); Iron 46 ug/dL (49-181)
[2024-10-15 06:48] LABS: Percent Iron Saturation 28 % (20-50); Total Iron Binding Capacity 165 ug/dL (261-462); Transferrin 111 mg/dL (206-381)
[2024-10-15 07:44] LABS: Folate > 20.0 ng/mL (2.76-20.0); Vitamin B12 895 pg/mL (239-931)
--- NOTE | 2024-10-15 07:45 | PT-IP ANOTE ---
PT is now able to access note from Dr. Cox which states that pt may be WBAT LLE and is not a surgical candidate for non-displaced left greater trochanter fracture. Will update WB in PT notes.
--- NOTE | 2024-10-15 08:22 | PM.PN.IH.1 ---
Subjective Subjective Date Patient Seen: 10/15/24 Time Patient Seen: 08:22 Interval history: Patient seen and evaluated this morning sitting in bed eating breakfast. Says he had his MRI yesterday was very uncomfortable. He slept back for was and was confused when he woke up. Think probably due to the lorazepam he was given. Nonetheless he has been losing weight at home. Patient has teeth pulled in his in the process of getting dentures. He is unable to ambulate well without significant assistance. Electrolytes are being replaced in better from yesterday. He is alert oriented to person today. Still says he is not feeling well working on trying to get up and ambulate. Exam Vital Signs (past 8 hours): - 10/15/24 01:00 Temperature 97.8 F Pulse Rate 83 Respiratory Rate 17 Blood Pressure 128/83 Pulse Oximetry 92 Oxygen Flow Rate 0 Oxygen Delivery Method Room Air Oxygen Flow Rate 0 Narrative Exam Narrative: Gen.: Alert good historian HEENT: Pupils equal round and reactive or mucosa is moist Cardio: S1-S2 systolic murmur present Respiratory: Lungs are some rhonchorous breath sounds with intermittent coughing normal respiratory effort Abdomen: Soft nontender no rebound or guarding no liver spleen enlargement no appreciable hernias Extremities: Warm dry perfused Neurologic: Grossly intact. Objective Labs 10/15/24 06:00 10/15/24 06:00 Labs: Laboratory Results - last 24 hr 10/15/24 06:00 WBC 10.6 D RBC 3.01 L Hgb 10.3 L Hct 29.2 L MCV 97.0 MCH 34.0 MCHC 35.1 RDW 13.6 Plt Count 282 Neut % (Auto) 80.8 H Lymph % (Auto) 7.8 L Woodward % (Auto) 10.3 Eos % (Auto) 0.9 L Baso % (Auto) 0.2 Neut # (Auto) 8600 H Lymph # (Auto) 800 L Woodward # (Auto) 1100 H Eos # (Auto) 100 Baso # (Auto) 0 Sodium 127 L Potassium 3.7 Chloride 98 Carbon Dioxide 27 BUN 5 L Creatinine 0.72 Estimated GFR > 60 BUN/Creatinine Ratio 6.9 Glucose 104 H Calcium 8.0 L Magnesium 1.4 L Iron 46 L TIBC 165 L % Saturation 28 Transferrin 111 L Vitamin B12 895 Folate > 20.0 H [facility] Medical History Urinary retention Hypertension Osteoarthritis T12 compression fracture Scoliosis Compression fracture of L3 lumbar vertebra Chronic obstructive pulmonary disease (01/07/14) Surgical History Anesthesia History of inguinal hernia repair Family History Mother Hyperlipidemia Sister No problems noted. Social History marital status: household members: significant other occupational status: previously employed Smoking Status: Current every day smoker alcohol intake: current substance use type: does not use Assessment & Plan Assessment and plan (1) Closed fracture of greater trochanter of femur: Qualifiers: Encounter type: initial encounter Fracture alignment: nondisplaced Laterality: left Qualified Code(s): S72.115A - Nondisplaced fracture of greater trochanter of left femur, initial encounter for closed fracture Status: Acute Plan Left trochanteric non displaced fracture per MRI that was done yesterday orthopedics has seen and evaluated the patient. Recommended nonoperative treatment. He needs to work with physical therapy for ambulation. If he can ambulate then he is able to go home if he is unable to ambulate then he needs penitentiary facility and we discussed that with him today. Pain is well controlled continue with Tylenol very intermittent hydrocodone stopped his lorazepam as he did not tolerate that well yesterday. SIADH. Patient known history of SIADH with hyponatremia. On Lasix and sodium at home. Will continue his Lasix and sodium tablets. His sodium level is a little bit better today. Will continue to monitor his electrolytes and adjust medications as appropriate. Hypokalemia. Potassium replacement ongoing. Potassium is better today. Hypomagnesemia. Magnesium replacement ongoing COPD with history of nicotine dependence. With chronic cough he is not oxygen dependent. Patient does not want a nicotine patch for his smoking Gastroesophageal reflux. Chronic and stable. BPH. Patient with a history of urinary obstruction. Supposed to be do self cathing. He says he is not very good about this monitoring kidney function and urinary obstruction he has had a number of appointments with Urology to discuss Prostate cancer in surveillance per urology Peripheral vascular disease with hyperlipidemia continue with Plavix aspirin statin. Patient previous with endovascular procedure done Hypertension continue antihypertensive medication Disposition and plan. Electrolyte replacement today ambulation today pain management. Discussion about long-term care plans whether this home with home health and PT or to skilled rehabilitation. Anticipate discharge 48 hours Time-Based Coding :: [TOTAL MINUTES] spent with patient and on the chart (including review of chart, obtaining history, exam, reviewing outside data, placing orders, documenting exam and treatment plan, and counseling patient) on [DATE]. Quality VTE Deep Vein Thrombosis/Pulmonary Embolism Present on Admission: No [facility] [employer] Document charge(s): Yes Charge Codes Subsequent inpatient/observation care: [id number]
[2024-10-15] MEDS: HYDROCODONE/ACET 5/325 TABLET 1 TAB PO ×2 (08:44→15:57)
[2024-10-15] MEDS: ASPIRIN EC 325 MG TABLET PO (08:45)
[2024-10-15] MEDS: MAGNESIUM CHLORIDE 64 MG TABLET 128 MG PO (08:45)
[2024-10-15] MEDS: CLOPIDOGREL 75 MG TABLET PO (08:45)
[2024-10-15] MEDS: DOCUSATE 100 MG CAPSULE PO ×2 (08:45→20:40)
[2024-10-15] MEDS: SODIUM CHLORIDE 1,000 MG TABLET 1000 MG PO ×2 (08:45→20:40)
[2024-10-15] MEDS: FOLIC ACID 1 MG TABLET PO (08:45)
[2024-10-15] MEDS: POTASSIUM CHLORIDE 20 MEQ TAB PO ×2 (08:45→15:57)
[2024-10-15] MEDS: FUROSEMIDE 20 MG TABLET PO (08:45)
[2024-10-15] MEDS: ATORVASTATIN 20 MG TABLET PO (08:45)
[2024-10-15] MEDS: ENOXAPARIN 30 MG/0.3 ML SYRINGE SUBCUT (08:45)
[2024-10-15] MEDS: METOPROLOL ER 25 MG TABLET 12.5 MG PO (08:46)
[2024-10-15] MEDS: CALCITONIN,SALMON, NASAL SPRAY 1 SPRAYS NASAL (08:46)
[2024-10-15] MEDS: FERROUS SULFATE 325 MG TABLET PO (08:46)
--- NOTE | 2024-10-15 10:48 | PT-IP ANOTE ---
PT brings chair to pt room and pt adamantly refuses working with PT, getting OOB to chair and screams and cusses at PT. Visitor in room, possibly significant other. Nsg enters and also encourages pt to get OOB to get better, assess mobility, and pt con't to admantly refuse. Pt can get OOB to chair with total lift and nsg as he agrees. Con't PT efforts at a later time and PT will not attempt to work with pt if he con't with screaming and cursing in order to decrease fall risk and maintain safety in frail 79 y/o with left femur fx.
--- NOTE | 2024-10-15 11:23 | OT.IP.EVAL ---
Current Diagnoses Nondisplaced fracture of greater trochanter of left femur, initial encounter for closed fracture (10/13/24) Past Medical History (Last Reviewed 10/14/24 @ 08:48 by Beckie Cox MD) Chronic obstructive pulmonary disease (01/07/14) Compression fracture of L3 lumbar vertebra Hypertension Osteoarthritis Scoliosis T12 compression fracture Urinary retention Surgical History (Last Reviewed 10/14/24 @ 08:48 by Beckie Cox MD) Anesthesia History of inguinal hernia repair Occupational Therapy Inpatient Evaluation/Re-Eval M1 PT/OT-IP Prior Functional Status Start: 10/15/24 12:39 Freq: NEEDED Status: Active Protocol: Document 10/15/24 10:50 [facility] (Rec: 10/15/24 12:52 [facility] Desktop) Medical Review Prior Functional Status Medical History Yes Reviewed Communication Poor dentition and pt has low body mass, unsure his baseline diet. Reports routine of drinking pot of coffee, smoking in a.m. and having a cocktail at night. Coughing and PATE with talking at rest today. Mobility and Gait Pt reports he gait trains with rollator and gait trains on flight of steps to basement to shower Pt states uses a 4ww inside and FWW outside. Activities of Daily Pt reports he drives and is I with bathing and dressing Living and IADL's , reports fall and then at a later time, increased pain when girlfriend pulled off compression hose Social History Household Members significant other Living Arrangements House Number of Floors ( Two Floors Floors) Number of Stairs To 3-4 steps with right rail ascend to enter home, flight Enter/Railing? of steps downstairs to BR with elevated toilet and walk -in shower with rail on the left descend Home Environment Standard Height Toilet,High Toilet,Walk in Shower Home Equipment Front Wheel Walker,Four Wheel Walker,Bedside Commode, Hand Held Shower Employment Status Retired M2 OT-IP Current Condition Start: 10/15/24 12:39 Freq: Status: Active Protocol: Document 10/15/24 10:50 [facility] (Rec: 10/15/24 12:52 [facility] Desktop) Occupational Therapy Current Condition Current Condition Evaluation Date 10/15/24 Treatment Diagnosis Acute hypoatremia, non -displaced fx left greater troch . Diagnosis Onset Date 10/13/24 Weight Bearing Status Weight Bearing Weight Bear as Tolerated Status Allowed Weight Dr. Blunt states in chart WBAT and no surgical Bearing Amount ( intervention needed. enter % or #) (%) M3 OT- IP Subjective and Pain Start: 10/15/24 12:39 Freq: Status: Active Protocol: Document 10/15/24 10:50 [facility] (Rec: 10/15/24 12:52 [facility] Desktop) OT- Subjective Occupational Therapy Visit Type Type Initial Evaluation Visit Start Time 10:50 Visit Stop Time 11:23 Occupational Therapy Visit Comments Patient Comments Pt having to use the BSC. Patient/Caregiver Pt is adamant to go home. Goals OT Pain Assessment Pain When Pain Assessed At Rest Pain Present Pain Present Pain Reported Location Left groin Pain Behaviors Facial Grimacing,Moaning,Wincing M4 OT- IP ADL's Start: 10/15/24 12:39 Freq: Status: Active Protocol: Document 10/15/24 10:50 [facility] (Rec: 10/15/24 12:52 [facility] Desktop) OT HUB-Qist-Whoaayd Comments OT Self-Feeding Not at meal time. Comments OT ADL-Grooming Comments OT Grooming Comments Pt able to wash his face with wash cloth after set-up. OT ADL-Oral Care Comments Oral Care Comments Not performed as pt refusing. OT ADL-Dressing General Eval Lower Body Dressing Maximum Assistance Ability OT ADL-Toileting General Evaluation Toileting Ability Standby Assistance Comments OT Toileting Pt able to urinate while on the BSC but did not have a Comments BM. Pt needing vc to wipe for completeness as note stains on the wipe after wiping his bottom. Pt able to stand and wipe and CGA for safety to stand to the FWW. OT ADL-Bathing Comments OT Bathing Comments Use of rolling shower chair due to decreased activity tolerance. M5 OT- IP IADL's Start: 10/15/24 12:39 Freq: Status: Active Protocol: Document 10/15/24 10:50 [facility] (Rec: 10/15/24 12:52 [facility] Desktop) OT-Instrumental Activities of Daily Living Home Safety Awareness Home Safety Comments Pt insistent on going home. Pt not open to skilled rehab or home health at this time. Medication Management Medication Pt states did prior on his own. Management Comments Money Management Money Management Pt states did on his own. Comments Meal Preparation Meal Preparation Caregiver Provides Assist Rn Faculty Rn Faculty Caregiver Provides Assist M6 OT- IP Functional Cognition Start: 10/15/24 12:39 Freq: Status: Active Protocol: Document 10/15/24 10:50 [facility] (Rec: 10/15/24 12:52 [facility] Desktop) Cognitive Factors Limiting Selfcare Function Cognitive Ability Level of Alertness Alert Patient Orientation Name,Place,Situation Attention Span Capable of Focused Attention,Capable of Sustained Ability Attention Ability to Follow Able to Follow One Step Commands Commands Safety Awareness Underestimates Need for Assistance Cognitive Comments Cognitive Assessment Pt needing extra time to move and catch his breath due Comments to weakness and decreased activity tolerance. Pt insistent to go home when able. OT- Vision and Hearing OT- Hearing Assessment OT- Hearing Hearing Impaired Assessment OT- Vision Assessment Visual Acuity WFL Visual Attentiveness WFL Occular Pursuits WFL M7 OT- IP Mobility and Balance Start: 10/15/24 12:39 Freq: Status: Active Protocol: Document 10/15/24 10:50 [facility] (Rec: 10/15/24 12:52 [facility] Desktop) OT- Bed Mobility Assessment Supine to Sit Supine to Sit Assist Standby Assistance Sit to Supine Sit to Supine Assist Standby Assistance OT-Transfer Assessment Sit to and From Stand Sit to and from Minimal Assistance Stand Transfers Transfer Ability Minimal Assistance Technique Transfer Destination Bed,Bedside Commode Transfer Technique Stand Step Pivot Devices Transfer Assistive Gait Belt,Front Wheeled Walker Devices Comments Mobility Comments SBA to get in and out of the bed and use of his hands to assist to get his LLE in and out of the bed. CHANELL to stand to the FWW and transfer to the BSC. OT- Balance Assessment Sitting Balance and Reactions Static Sitting Good Balance Ability Dynamic Sitting Good Balance Ability Standing Balance and Reactions Static Standing Fair Balance Ability Dynamic Standing Fair Balance Ability M8 OT- IP Objective Assessments Start: 10/15/24 12:39 Freq: Status: Active Protocol: Document 10/15/24 10:50 [facility] (Rec: 10/15/24 12:52 [facility] Desktop) OT Gross Range of Motion Upper Extremity Range of Motion Assessment Within Functional Limits OT Strength Upper Extremity Strength Assessment Within Functional Limits Comments Strength Comments BUE 4/5 to 4+/5, WFL for ADL needs. OT- Coordination Assessment Upper Extremity Finger to Nose Test Within Functional Limits M9 OT- IP Assessment and Plan Start: 10/15/24 12:39 Freq: Status: Active Protocol: Document 10/15/24 10:50 [facility] (Rec: 10/15/24 12:56 [facility] Desktop) OT Summary Assessment and Plan Potential Rehabilitation Good Potential Analytic Complexity Moderate at Evaluation Summary OT Impairments Pain,Strength,Balance,Functional Mobility,Self-Feeding, Grooming,Dressing,Toileting,Bathing,Toilet Transfers, Shower Transfers,Activity Tolerance Progress Towards Slow Progress due to Pain,Slow Progress due to Medical Goals Issues,Slow Progress due to Activity Tolerance Assessment Summary Pt MOD complexity and main barriers are decreased activity tolerance, overall strength and just able to tolerance transfer at this time due to pain form left non displaced greater troch fx. Pt also HR high 125- 134 with exertion, nursing aware. Pt is adamant of going home, however pt has a flight of steps at home to negotiate to get to his bedroom/bathroom. Pt would benefit from short skilled rehab prior to going home. Goals Self-Feeding Goal Independent Grooming Goal Independent Dressing Goal Independent Toileting Goal Independent Bathing Goal Minimal Assistance Toilet Transfer Goal Independent Shower Transfer Goal Standby Assistance Days to Meet Goals 15 Frequency of Treatment Other frequency 5x/week Treatment Plan OT Treatment Plan ADL Training,Functional Mobility,Patient/Family Education,Discharge Planning Other Treatment Stand with FWW for ADL needs. GO over LB dressing Recommendations and equipment needs. Next Treatment Focus Discharge Recommendations OT Discharge SNF Rehab Recommendations Other Discharge Hopeful if pt able to do steps possibly go home with 24 Recommendations /7 assist and home health. Transportation Needs Wheelchair/Cabulance at Discharge
--- NOTE | 2024-10-15 11:50 | DIET.CONS ---
Dietary Consultation Note Admission Date: 10/13/2024 18:19 Assessment: 79 y M admitted after GLF. Dietitian consulted for MNA score. Met with pt and significant other at bedside. Reports teeth pulled 1 yr ago and gradual decline in weight with more severe decrease in PO intakes in last 3 months. Usual PO intakes at home is 2-3 bites of 2 meals for last few months. Has been trying to do 1 Ensure chocolate protein max as well. Has upper dentures but don't fit properly. NFPE performed with moderate muscle wasting in temples and deltoid and moderate subcutaneous fat loss in buccal and orbital fat pads. Ht: 177.8 cm Wt: 51 kg BMI: 16.1 UBW: 63.64 kg 1 yr ago per family, per EMR pt has been 47-52 kg since May 2023, 49.895 kg on 08/07/24 Last BM: 10/13/24 (10/13/24 20:18) MNA: 7 Sushant Score: 17 Diet: 10/13/24 Dinner General (Regular) Diet Diet Modifications: Nutrition Percent Meal Consumed 25% 10/14/24 18:00 Labs: RBC 3.01 X10^6/uL (4.5-5.9) L 10/15/24 06:00 Hgb 10.3 g/dL (13.5-17.5) L 10/15/24 06:00 Hct 29.2 % (41-53) L 10/15/24 06:00 Creatinine 0.72 mg/dL (0.66-1.25) 10/15/24 06:00 Iron 46 ug/dL (49-181) L 10/15/24 06:00 % Saturation 28 % (20-50) 10/15/24 06:00 NT-Pro-B Natriuret Pep 557 pg/mL (<450) H 10/13/24 15:46 Nutrition Diagnosis: Severe chronic protein calorie malnutrition r/t biting/chewing difficulty as evidenced by complete or partial edentulism, BMI severely underweight for age (16.1), and <60% of estimated energy needs for >6 months per diet recall (severe), moderate muscle wasting in temples and deltoid Interventions: -Discussed switching to Ensure+ for calories and protein BID and small freq meals -Ensure plus/enlive chocolate BID -Easy to chew/soft foods coordinated with unit host EER: [id number] kcals (30-35 kcals/kg) 60-65 g protein (1.2 g/kg per PCM vs 16-18% kcals) Monitoring/Evaluations: ONS tolerance, PO intakes Electronically Signed by: Cesia Arellano 10/15/24 11:50 Clinical Dietitian [address] [id number]
[2024-10-15] MEDS: NICOTINE 21 MG PATCH TOP (15:20)
--- NOTE | 2024-10-15 16:13 | CM.DANOTE ---
DCP Assessment note pt is a 79yo M admitted after a fall a week ago resulted in a pelvic fx. also hyponatremic PCP Dr. Leavitt payer [employer] DRUG PURCHASER reviewed EMR per chart, pt lives with partner on [address] [place] note estimates 48hrs before dc. per PT/OT rec SNF placement. DRUG PURCHASER met with pt in room. intorduced self and role. wants to see how does tomorrow before fully agreeing to SNF. open to referral to as backup plan. wants to go out and smoke, DRUG PURCHASER explained pt cannot while admitted to hospital. pt agreeable to patch. preference is to return home with partner. Pt does not have access to at this time due to only HH agency not serving [place]. if home, consider if comm paramedics on [place] would check in on pt? DRUG PURCHASER sent referral to Kendal from , agreed to review. acceptance pending. if SNF, PASRR/ins auth needed CM team will continue to follow closely for DCP coordination MADONNA Delgadillo Discharge Planning/Care Management Advanced directive, confirm from FAMILY Start: 10/13/24 20:41 Freq: Q24H Status: Active Protocol: Document 10/14/24 09:00 [facility] (Rec: 10/14/24 10:50 [facility] [id number]) Advance Directive, confirm on record Time 10:50 Person contacted patient Copy received No Document 10/15/24 09:00 [facility] (Rec: 10/15/24 09:27 SB [id number]) Advance Directive, confirm on record Time 10:50 Person contacted patient Copy received No Time 09:27 Person contacted patient Copy received No Advanced directive No available on record CM Discharge Assessment Start: 10/13/24 19:50 Freq: Status: Active Protocol: Document 10/15/24 16:12 [facility] (Rec: 10/15/24 16:12 [facility] Desktop) Discharge Planning Assessment Assigned Discharge MADONNA Adams Home Care Manager Rn DPOA/Assigned melchor Macias Designee Name Contact Information [phone] Advance Directives? Yes Advance Directives No on File History Provided By Patient,Family Member Prior Living House Arrangements Household Members significant other Independent with ADL Yes 's Is patient alert and Yes oriented? Transportation SNF vs home with partner Arrangement Referrals Initiated [facility] Review Status In Process Please Provide Date 10/15/24 Initial DC Assessment Was Performed Next Review Type Continued Stay Review
[2024-10-15] MEDS: TAMSULOSIN 0.4 MG CAPSULE PO (20:40)
[2024-10-15] MEDS: LATANOPROST 0.005% OPHTH 2.5 ML 1 DROPS EYE-LEFT (20:40)
[2024-10-16] MEDS: HYDROCODONE/ACET 5/325 TABLET 1 TAB PO (04:58)
[2024-10-16 06:10] LABS: Blood Urea Nitrogen 7 mg/dL (9-20); Calcium 8.7 mg/dL (8.4-10.2); Carbon Dioxide 25 mmol/L (22-32); Chloride 99 mmol/L (98-107); Estimated Glomerular Filt Rate > 60 mL/min (>60); Glucose 113 mg/dL (70-99); HEMOLYSIS < 15 (0-50); Magnesium 1.5 mg/dL (1.6-2.3); Potassium 4.8 mmol/L (3.4-5.1); Sodium 130 mmol/L (137-145)
[2024-10-16 07:00] VITALS: O2SAT 93
[2024-10-16 08:00] VITALS: BP 114/63; PULSE 111; RESP 18; TEMP 36.6; O2SAT 99
[2024-10-16] MEDS: POTASSIUM CHLORIDE 20 MEQ TAB PO (08:14)
[2024-10-16] MEDS: ASPIRIN EC 325 MG TABLET PO (08:15)
[2024-10-16] MEDS: FUROSEMIDE 20 MG TABLET PO (08:15)
[2024-10-16] MEDS: FOLIC ACID 1 MG TABLET PO (08:15)
[2024-10-16] MEDS: CLOPIDOGREL 75 MG TABLET PO (08:15)
[2024-10-16] MEDS: SODIUM CHLORIDE 1,000 MG TABLET 1000 MG PO (08:15)
[2024-10-16 08:17] VITALS: BP 116/43
[2024-10-16] MEDS: FERROUS SULFATE 325 MG TABLET PO (08:17)
[2024-10-16] MEDS: METOPROLOL ER 25 MG TABLET 12.5 MG PO (08:17)
[2024-10-16] MEDS: MAGNESIUM CHLORIDE 64 MG TABLET 128 MG PO (08:18)
[2024-10-16] MEDS: NICOTINE 21 MG PATCH TOP (08:19)
[2024-10-16] MEDS: ENOXAPARIN 30 MG/0.3 ML SYRINGE SUBCUT (08:19)
[2024-10-16] MEDS: DOCUSATE 100 MG CAPSULE PO (08:23)
[2024-10-16] MEDS: CALCITONIN,SALMON, NASAL SPRAY 1 SPRAYS NASAL (08:23)
--- NOTE | 2024-10-16 08:37 | PM.DS.IH.1 ---
History of Present Illness History of Present Illness Chief complaint: Groin Pain Discharge Providers Provider Date of admission: 10/13/24 18:19 Discharge Date: 10/16/24 Primary care physician: Vishal Leavitt MD Consults: 10/13/24 20:01 Consult to Discharge Planning Routine Comment: Consult to Occupational Therapy Evaluate & Treat Comment: Physician Instructions: Evaluate and treat Consult to Physical Therapy Evaluate & Treat Comment: Physician Instructions: Evaluate and Treat Discharge provider: Vishal Leavitt MD Summary Hospital Course Discharge Diagnosis: Left trochanteric nondisplaced fracture 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 Patient was found on CT scan and then MRI to have a intertrochanteric nondisplaced fracture of his left hip. Patient was evaluated by Orthopedic surgery who said he was nonoperable. Patient was admitted to the hospital because of pain difficulty with ambulating and at electrolyte abnormalities. During the hospital stay patient had improvement and replacement of his magnesium sodium and potassium. He worked with therapy. Patient had good pain control. He was paced on a nicotine patch and educated about smoking. Patient has had difficulty with eating as he has had his teeth removed awaiting dentures and he has had a significant amount of weight loss. Which is contributing to his weakness and fragility. Patient was continued on his medication statin aspirin Plavix because of peripheral arterial disease. He was counseled to quit smoking. Patient during his hospital stay was continued on his Flomax for his urinary obstruction has a history of prostate cancer currently in surveillance and BPH. Patient will be discharged back home with his . Once he demonstrates ability to ambulate. Exam Vital Signs (past 8 hours): - 10/16/24 08:00 10/16/24 08:17 Temperature 97.8 F Pulse Rate 111 H Respiratory Rate 18 Blood Pressure 114/63 116/43 L Pulse Oximetry 99 Oxygen Delivery Method Room Air Oxygen Flow Rate 0 Narrative Exam Narrative: Gen.: Alert wanting to go home. HEENT: Pupils equal round and reactive or mucosa is moist Cardio: S1-S2 regular rate and rhythm no murmurs appreciated. Respiratory: Mild rhonchorous breath sounds. Abdomen: Soft nontender no rebound or guarding no liver spleen enlargement no appreciable hernias Extremities: Full range of motion no appreciable weakness no cyanosis or edema. Neurologic: Grossly intact. Objective Labs 10/15/24 06:00 10/16/24 04:50 Labs: Laboratory Results - last 24 hr 10/16/24 04:50 Sodium 130 L Potassium 4.8 Chloride 99 Carbon Dioxide 25 BUN 7 L Creatinine 0.84 Estimated GFR > 60 BUN/Creatinine Ratio 8.3 Glucose 113 H Calcium 8.7 Magnesium 1.5 L PFSH Medical History Urinary retention Hypertension Osteoarthritis T12 compression fracture Scoliosis Compression fracture of L3 lumbar vertebra Chronic obstructive pulmonary disease (01/07/14) Surgical History Anesthesia History of inguinal hernia repair Family History Mother Hyperlipidemia Sister No problems noted. Social History marital status: household members: significant other occupational status: previously employed Smoking Status: Current every day smoker alcohol intake: current substance use type: does not use Discharge Plan Discharge Plan Patient Disposition: Home Provider Discharge Comment: Follow-up with orthopedic surgery in 7-10 days for re-evaluation of hip. Follow up with Dr. Leavitt in 7-10 days Discharge orders & Medications Prescriptions: New codeine sulfate 15 mg tablet 15 mg PO BID PRN (Reason: pain) Qty: 20 0RF Continued folic acid 1 mg tablet 1 mg PO DAILY Qty: 90 3RF metoprolol succinate 25 mg tablet extended release 24 hr 12.5 mg PO DAILY Qty: 90 3RF tamsulosin 0.4 mg capsule 0.4 mg PO ONCE PM Qty: 90 3RF esomeprazole magnesium 20 mg capsule,delayed release(DR/EC) 20 mg PO DAILY Qty: 90 3RF sodium chloride 1,000 mg tablet,soluble 1,000 mg PO BID Qty: 180 3RF atorvastatin 20 mg tablet 20 mg PO DAILY Qty: 90 3RF calcitonin (salmon) 200 unit/actuation spray,non-aerosol See Rx Instructions .ROUTE .COMPLEX Qty: 3.7 3RF Dose Instruction: USE 1 SPRAY INTO ONE NOSTRIL( ALTERNATE) DAILY FOR SACRAL FRACTURE FOR 3 MONTHS Rx Instructions: USE 1 SPRAY INTO ONE NOSTRIL( ALTERNATE) DAILY FOR SACRAL FRACTURE FOR 3 MONTHS furosemide 20 mg tablet 20 mg PO DAILY Qty: 90 3RF lisinopril 40 mg tablet 40 mg PO DAILY Qty: 90 3RF dorzolamide-timolol 22.3-6.8 mg/mL drops 1 drp EYE-LEFT Q12H Patient Comments: BID, left eye only clopidogrel 75 mg tablet 75 mg PO DAILY aspirin 325 mg tablet 325 mg PO DAILY latanoprost 0.005 % drops 1 drp EYE-LEFT BEDTIME Patient Comments: INSTILL 1 DROP IN THE LEFT EYE EVERY NIGHT AT BEDTIME ferrous sulfate [Feosol] 325 mg (65 mg iron) tablet 325 mg PO DAILY Follow up/Referrals: Vishal Leavitt MD [Primary Care Provider, Family Practice] Diet/Activity/Treatments Diet: Diet as Tolerated Visit Report/Discharge Packet Stand Alone Forms: Patient Portal/API, Stroke Signs & Symptoms Discharge Data Primary Care Provider: Vishal Leavitt Quality VTE Deep Vein Thrombosis/Pulmonary Embolism Present on Admission: No IH PROFEE Charge Codes Discharge inpatient/observation: [id number]
--- NOTE | 2024-10-16 09:14 | PT-IP ANOTE ---
PT reviewed chart and checked in with nsg. Nsg reports that pt got up to BR by taking steps with walker. PT checks in with pt as nsg in hallway and pt is in BR. Pt reports that Dr. Leavitt left and he is getting paperwork so he can go home. PT gently offers and educates pt in benefits of walking with PT and practicing steps before d/c home and that PT can even bring a step into the room. Pt declines x2, stating that he can perform the five steps at home. He is pleasant and not receptive to education about stair training before d/c home. PT communicates that PT can check back after rounds but that PT may be sent back in to try again to try steps with pt before d/c and pt con't to decline. PT communicates pt's decline with nsg and SW.
[2024-10-16] MEDS: ACETAMINOPHEN 325 MG TABLET 650 MG PO (09:15)
--- NOTE | 2024-10-16 11:08 | PC.NURSE ---
Patient is A&OX4,VSS afebrile on RA. He denies SOB, or dizziness. He states he is anxious to go home today, however declines to participate with PT. He is able to ambulate to the bathroom using FWW x1 assist. MD at bedside evaluating patient and encouarging the patient to mobilize and work with therapy. Patient declines going to SNF and very anxious to discharge home today. He is cleared for discharge after ambulating this a.m. His girlfriend arrives at approximately 0945 this a.m. from [facility] and encourages patient to stay and work with PT/OT.He declines. He verbalizes understanding of discharge medications, and instructions to follow up wtih ortho ([facility]) as well as with MD Leavitt in 7-10 days. He is escorted via w/ch to private vehicle with his girlfriend with all of his belongings at 10:25 this a.m.
--- NOTE | 2024-10-16 11:58 | CM.DPNOTE ---
DCP Note TRANSIT COACH OPERATOR reviewed EMR per PT, pt declined working with therapy again this morning. per alyson Leavitt today pending ambulation. per RN note, ambulated with walker to bathroom. pt refusing SNF and eager to dc home. pt left prior to being seen by this TRANSIT COACH OPERATOR with partner. see RN note for more. TRANSIT COACH OPERATOR canceled referral with SV. P: home today with close OP f/u with partner support. CM team will continue to follow as needed MADONNA Delgadillo
== END 2024-10-16 10:25 | disposition home or self-care (01) | DRG 643 ==
LOC: ED 18:19 → AC 18:20
PROVIDERS: Admitting Provider Family Medicine; Emergency Provider Family Medicine; PCP Family Medicine; Referring Provider Family Medicine; Visit Provider Family Medicine
DX: E22.2 Syndrome of inappropriate secretion of antidiuretic hormone (principal); E43 Unspecified severe protein-calorie malnutrition; S72.115A Nondisplaced fracture of greater trochanter of left femur, initial encounter for closed fracture; N13.8 Other obstructive and reflux uropathy; Z68.1 Body mass index [BMI] 19.9 or less, adult; I73.9 Peripheral vascular disease, unspecified; J44.9 Chronic obstructive pulmonary disease, unspecified; E87.6 Hypokalemia; E83.42 Hypomagnesemia; K21.9 Gastro-esophageal reflux disease without esophagitis; C61 Malignant neoplasm of prostate; E78.5 Hyperlipidemia, unspecified; D63.8 Anemia in other chronic diseases classified elsewhere; I10 Essential (primary) hypertension; H40.9 Unspecified glaucoma; N40.1 Benign prostatic hyperplasia with lower urinary tract symptoms; W18.30XA Fall on same level, unspecified, initial encounter; Z95.820 Peripheral vascular angioplasty status with implants and grafts; Z79.02 Long term (current) use of antithrombotics/antiplatelets; Z72.0 Tobacco use
CPT/HCPCS: 36415; 71045; 72192; 73721; 80048; 80053; 81015; 82550; 82607; 82746; 83540; 83550; 83690; 83735; 83880; 84484; 85025; 85610; 85730; 87086; 93005; 93010; 96365; 96368; 97161; 97166; 99233; 99238; 99284; J1650; J3475

== ENCOUNTER → 2024-10-29 10:47 | Outpatient (CLI) | payer MEDICARE, SELFPAY ==
[2024-10-25 14:10] VITALS: BMI 16.1
--- NOTE | 2024-10-29 10:47 | DI.RAD.S_ITS ---
PROCEDURE: XR DEXA AXIAL SKELETON INDICATIONS: Evaluate bone density COMPARISON: None. FINDINGS: Lumbar Spine: L1-L3. Bone mineral density 0.592 g/cm2, T score -3.9. Left Femoral Neck: Bone mineral density 0.452 g/cm2, T score -3.6. Left Hip: Bone mineral density 0.511 g/cm2, T score -3.5. Left Forearm: Bone mineral density 0.753 g/cm2, T score 1.0. Fracture Risk Calculation (when applicable): 10-year fracture risk of a major osteoporotic fracture 21 percent and of a hip fracture 16 percent. (T score greater or equal to -1.0 to: NORMAL) (T score from -1.1 to -2.4: OSTEOPENIA) (T score less than or equal to -2.5: OSTEOPOROSIS) IMPRESSION: Osteoporosis. Follow-up guidelines as follows: Osteoporosis: Consider a repeat DEXA and Vertebral Fracture Assessment (VFA) exam in 2 years or sooner if medically necessary, to reassess this patient's status. Osteopenia: Consider a repeat DEXA in 2-3 years to reassess this patient's status, or if there is a new clinical indication. Normal: Consider a repeat DEXA in 5 years or sooner, or if there is a new clinical indication. All treatment decisions require clinical judgment and consideration of individual patient factors, including patient preferences, comorbidities, previous drug use, risk factors not captured in the FRAX model (e.g., frailty, falls, vitamin D deficiency, increased bone turnover, interval significant decline in bone density ) and possible under- or over-estimation of fracture risk by FRAX. In addition, the NOF Guide recommends that FDA-approved medical therapies be considered in postmenopausal women and men age >= 50 years with a: * Hip or vertebral (clinical or morphometric) fracture * T-score of <=-2.5 at the spine or hip * Ten-year fracture probability by FRAX of >= 3% for hip fracture or >=20% for major osteoporotic fracture. Dictated by: Lowell Benitez M.D. on 10/29/2024 at 22:48 Approved by: Lowell Benitez M.D. on 10/29/2024 at 22:51
== END ==
LOC: RAD 10:47
PROVIDERS: Family Provider Family Medicine; PCP Family Medicine; Referring Provider Orthopaedic Surgery Adult Reconstructive Orthopaedic Surgery; Visit Provider Orthopaedic Surgery Adult Reconstructive Orthopaedic Surgery
DX: M81.0 Age-related osteoporosis without current pathological fracture (principal)
CPT/HCPCS: 77080; 77081

== ENCOUNTER → 2024-11-15 11:49 | Outpatient (CLI) | payer MEDICARE, SELFPAY ==
[2024-10-25 14:10] VITALS: BMI 16.1
[2024-11-15 13:06] LABS: Blood Urea Nitrogen 5 mg/dL (9-20); Calcium 8.0 mg/dL (8.4-10.2); Carbon Dioxide 31 mmol/L (22-32); Chloride 90 mmol/L (98-107); Estimated Glomerular Filt Rate > 60 mL/min (>60); Glucose 84 mg/dL (70-99); HEMOLYSIS < 15 (0-50); Magnesium 1.8 mg/dL (1.6-2.3); Potassium 3.6 mmol/L (3.4-5.1); Sodium 127 mmol/L (137-145)
== END ==
PROVIDERS: Family Provider Family Medicine; PCP Family Medicine; Referring Provider Family Medicine; Visit Provider Family Medicine
DX: E87.6 Hypokalemia (principal); E83.42 Hypomagnesemia; E87.1 Hypo-osmolality and hyponatremia
CPT/HCPCS: 36415; 80048; 83735

== ENCOUNTER 2024-12-06 09:00 | Outpatient (RCR) | payer MEDICARE, SELFPAY ==
[2024-10-25 14:10] VITALS: BMI 16.1
--- NOTE | 2024-11-26 12:21 | PT.OPPOC ---
Physical, Occupational & Speech Therapy At [facility] Current Diagnoses Lymphedema, not elsewhere classified (11/26/24) Weakness (11/26/24) Displaced fracture of greater trochanter of unspecified femur, subsequent encounter for closed fracture with routine healing (11/26/24) Visit Care Team Role Provider Type Vishal Leavitt MD Family Provider Physician Primary Care Provider Specialty: Family Practice Address: [address] [place] [address], [address], [place], [address] Email: [email or web address] Romeo Kowalski MD Attending Provider Physician Referring Provider Specialty: Orthopedics Orthopedic Surgery Address: [address] [place] [address], [id number] Fax: Email: [email or web address] Plan Of Care PT OP: Lymphedema Lower Extremity Start: 11/26/24 08:56 Freq: Status: Active Protocol: Document 11/26/24 08:57 SAK (Rec: 11/26/24 09:42 SAK Laptop) Out-Patient Physical Therapy Visit Information Visit Information Visit Type Initial Evaluation Visit Start Time 08:57 Visit Stop Time 10:15 Visit Number 1 Number of SUMMER ASSOCIATE Visits 0 Progress Note Due 02/26/25 Evaluation Information Evaluation Date 11/26/24 Precautions Precautions pt is a smoker 2 falls in past 8 months Current Condition History of Current Condition Onset Date 1 year Current Complaints swelling in his feet History of Current Had a blockage in his left knee, had 2 stents put in. Condition Swelling present prior but continued afterward. reports if he wears support stockings and keeps his legs up, manages fairly well. Not wearing compression socks today because they are really hard to get on. Patient reports sits in recliner most of the day, gets tired and SOB with activity. Compression level 15? per . Ptient reporting it takes quite awhile to get dressed, he has been becoming weaker. Has had 3 falls. Fractured right hip 2024 , no surgery. Then fell in kitchen and fractured left hip 10/23 , again no surgery. States he gets SOB. Is a smoker for 65 yrs 1 pack per day. Some days can't get socks on. reports patient has an air pump but not sure of brand , covers whole leg. Has been using FWW for at least [address] Major on Tuesday. reports thinks has donning aid, may have loaned it. Prior Treatments and Compression socks, inconsistent wearing, difficult to Tests don Treatment Goals Patient/Caregiver decrease swelling in bilateral feet, improve strength Goals and activity tolerance to be able to travel again. ( has cruise scheduled in May) Patient Questionnaires Lymphedema Life Impact Score Lymphedema Score 44 Palpation Assessment Location stalin LE Palpation Location stalin feet and lower legs Palpation Findings Edema,Soft Tissue Tightness Palpation Details thickening and dryness with flaky skin, Skin Assessment Edema Assessment Bilateral Leg Edema Type Pitting Edema Degree 2+ Query Text:1+ Trace, Barely Detectable, Rebound Immediate 2+ Moderate, Slight Indentation, Rebound a few seconds 3+ Deep, Deeper Indentation, Rebound 10-12 seconds 4+ Very Deep, Rebound > 20 seconds Edema Appearance Discolored,Puffy,Taut Subjective Edema Tightness Description Hip Goniometric Range of Motion Hip Measured in Degrees stalin Hip ROM WFL Yes Knee Goniometric Range of Motion Knee Measured in Degrees stalin Knee ROM WFL Yes Ankle and Foot Goniometric Range of Motion Ankle and Foot Measured in Degrees stalin Ankle/Foot ROM WFL No Dorsiflexion with 5 Knee Flexed Dorsiflexion with 0 Knee Extended Plantarflexion 40 Hip Strength Hip Manual Muscle Testing Left Flexion (L2) 3 Fair Extension (S1) 3- Fair- Abduction 3- Fair- Adduction 3- Fair- External Rotation 3- Fair- Internal Rotation 3- Fair- R Flexion (L2) 3+ Fair+ Extension (S1) 3- Fair- Abduction 3+ Fair+ Adduction 3+ Fair+ External Rotation 3+ Fair+ Internal Rotation 3+ Fair+ Knee Strength Knee Manual Muscle Testing Left Flexion (S2) 4- Good- Extension (L3) 4- Good- Right Flexion (S2) 4+ Good+ Extension (L3) 4+ Good+ Ankle/Foot Strength Ankle and Foot Manual Muscle Testing Left Dorsiflexion (L4) 3- Fair- Plantarflexion (S1) 3+ Fair+ Right Dorsiflexion (L4) 4 Good Plantarflexion (S1) 4 Good Lymphedema Measurements Lower Extremity Circumference Measurements Left MT Heads 26.5 cm Mid-foot 27.3 cm Medial Malleolus 25 cm 10 cm From Medial 24.8 cm Malleolus 20 cm From Medial 33.8 cm Malleolus 30 cm From Medial 34.2 cm Malleolus 40 cm From Medial 34.8 cm Malleolus 50 cm From Medial 35.4 cm Malleolus 60 cm From Medial 35.5 cm Malleolus 70 cm From Medial 38.5 cm Malleolus Knee Joint 37.7 cm Right MT Heads 26.3 cm Mid-foot 26.4 cm Medial Malleolus 28 cm 10 cm From Medial 26.4 cm Malleolus 20 cm From Medial 32.4 cm Malleolus 30 cm From Medial 31.8 cm Malleolus 40 cm From Medial 33.5 cm Malleolus 50 cm From Medial 36.4 cm Malleolus 60 cm From Medial 34 cm Malleolus 70 cm From Medial 32.1 cm Malleolus 80 cm From Medial 35.8 cm Malleolus Physical Therapy Assessment Rehab Potential Rehabilitation Good Potential Evaluation Complexity Number of Personal 1-2 Factors/ Comorbidities Number of Body 3 Systems Impaired Clinical Evolving Presentation at Evaluation Impairments Impairments Activity Tolerance,Edema,ROM,Strength Goals Three Impairment ROM and strength impairments Short Term Goal (STG Patient will be able to demonstrate all HEP ex with min ) cues and report compliance 5/7 days STG Duration 12/27/24 Tax Representative Goal (LTG) Patient will demonstrate improved ankle ROM to WNL and Hip strength stalin at least 4/5 to allow him to return to prior level of function LTG Duration 02/16/25 Two Impairment lymhedema life impact scale 44% Short Term Goal (STG Decrease lymphedema life impact scale to no greater ) than 30% as measure of improved function and quality of life STG Duration 12/27/24 Senior Living Goal (LTG) Decrease lymphedema life impact scale to no greater than 20% as measure of improved function and quality of life LTG Duration 02/16/25 One Impairment lymphedema stalin LE's toes to knees Short Term Goal (STG Patient will be instructed in all aspects of lymphedema ) self-care to include skin care, elevation, self- massage, self-bandaging/compression options, and lymphedema exercises. STG Duration 12/27/24 Senior Living Goal (LTG) Decrease patient?s lymphedema to a stable level (no increase or decrease greater than 1 cm over the course of 1 week), patient to be independent with all aspects of self-care for lymphedema, and will obtain appropriate compression garment for lymphedema management in the home including ability to don and doff compression garments independently or with the assistance of his . LTG Duration 02/16/25 Assessment Summary Assessment Patient presents to PT with function-limiting lymphedema bilateral LEs from toes to knees with positive Stemmer sign, pitting edema, skin dryness and thickening consistent with lymphedema. Reports he has gotten weaker over the past year after stent placement in leg as well as 2 falls with hip fractures over the past 8 months. Neither fracture required surgical intervention but reports he has not done any exercise. No signs or symptoms of cellulities at this time but patient at high risk. Highly contribitory to lymphedema are patient's sedendary lifestyle including sitting with feet dependent. Patient is also a 1 pack per day smoker. He currently ambulates with front wheeled walker. He has compression stockings but wears somewhat inconsistently including not wearing to PT today, states they are hard to get on. No regular exercise. Patient's does report that they obtained a compression pump online (can't remember brand but reports it covers entire leg) but haven't used yet; agreed to bring to next appointment for evaluation. Feel patient would benefit highly from PT to address his bilateral LE lymphedema which will include elevation, skin care, manual lymphatic drainage, compression, and exercise. At the same time we will be addressing his impairments in ROM and strength to improve his activity tolerance which should also be of benefit to his lymphedema. POC was discussed with patient and his Colleen and they were in agreement. Due to patient living on [facility] it can be challenging for him to make it to appointments so PT stressed importance of follow through with home program if less frequent appointments scheduled. Physical Therapy Plan Frequency and Duration Frequency of 20 Treatment Duration of 12 treatment (weeks) Plan of Care Start 11/26/24 Date Plan of Care End 02/26/25 Date Therapeutic Interventions Therapeutic Home Exercise Program,Lymphedema Management,Manual Interventions Therapy,Patient/Caregiver Education,Self-Care/Home Management,Soft Tissue Mobilization,Therapeutic Activities,Therapeutic Exercises Modalities Vasopneumatic Devices Next Visit Focus/Plan Next Note Type Treatment Note Next Visit Plan Review HEP, initiate complete decongestive therapy for lymphedema management as above. Evaluate patient's compression garments and home pump if brings. Plan of Care Dates Plan of Care Start Date 11/26/24 Plan of Care End Date 02/26/25 Electronically Signed by: Jolene Marin, PT 11/26/24 1585 If you are in agreement with this Plan of Care, please return a signed and dated copy. I have reviewed this Plan of Care and certify that the skilled therapy services above are required to meet the patient?s needs. Physician Signature Date Printed Name and Credentials Clinical Instructor Signature Printed Name and Credentials
--- NOTE | 2024-12-03 09:28 | PT-OP ANOTE ---
DNS, called and left VM asking for call back and informing of $50 no show fee.
[2024-12-06 09:03] VITALS: PULSE 99; O2SAT 98
--- NOTE | 2024-12-06 10:40 | PT.OTN ---
Current Diagnoses Lymphedema, not elsewhere classified (12/06/24) Weakness (12/06/24) Displaced fracture of greater trochanter of unspecified femur, subsequent encounter for closed fracture with routine healing (12/06/24) Physical Therapy Treatment Note PT OP: Lymphedema Lower Extremity Start: 11/26/24 08:56 Freq: Status: Active Protocol: Document 12/06/24 09:03 SAK (Rec: 12/06/24 09:44 SAK Laptop) Out-Patient Physical Therapy Visit Information Visit Information Visit Type Treatment Note Visit Start Time 09:04 Visit Stop Time 10:30 Visit Number 2 Progress Note Due 02/26/25 Precautions Precautions COPD HTN 2 falls in past 8 months Vital Signs Pulse after exercise Pulse With Activity 99 (bpm) Oxygen Pulse Oximetry at 98 Rest (%) (95-100 %) OP-PT Subjective Patient Comments Patient Comments Reports not doing well. Had teeth removed awhile back, not eating well. Not exercising, sitting with legs down most of day. I'm lazy I guess. Has been SOB, blames on smoking. Haven't worn compression this week due to feet being too big. Clarifies that he doesn't have a leg pump at home, has small floor leg exerciseser, hasn't used for a long time Lymphedema Measurements Lower Extremity Circumference Measurements Left MT Heads 26.2 cm Mid-foot 27 cm Medial Malleolus 24.2 cm 10 cm From Medial 24.3 cm Malleolus 20 cm From Medial 32.5 cm Malleolus 30 cm From Medial 33.8 cm Malleolus 40 cm From Medial 34.3 cm Malleolus 50 cm From Medial 34.9 cm Malleolus 60 cm From Medial 35.7 cm Malleolus 70 cm From Medial 39 cm Malleolus Knee Joint 37.3 cm Right MT Heads 25.6 cm Mid-foot 26.7 cm Medial Malleolus 26.3 cm 10 cm From Medial 25.7 cm Malleolus 20 cm From Medial 30.3 cm Malleolus 30 cm From Medial 33 cm Malleolus 40 cm From Medial 34.5 cm Malleolus 50 cm From Medial 36.3 cm Malleolus 60 cm From Medial 33.7 cm Malleolus 70 cm From Medial 32.7 cm Malleolus 80 cm From Medial 36.7 cm Malleolus Knee Joint 37 cm Cardio Equipment Recumbent Stepper (Sci-Fit) Duration (Minutes) 5 Resistance 1 Seat Position 16 Lymphedema Treatment Manual Lymphatic Drainage Location For [place] LE Lymphedema anterior and lateral routes Duration 60 Comments use of Airos 6 sequential pneumatic pump side not receiving MLD at 45 mm Hg (reduction 5% each chamber moving proximally simulating MLD), supine Lymphedema Wrapping Materials CircAid compression socks [place] LE's 15 mm Hg loaner socks as patient did not bring own Sequential Lymphedema Exercises Location LE's Duration 10x ea Comments seated march, LAQ, ankle pumps, bent kne IR/ER with foot ev/inv, circles Compression Garment Assessment Compression Garment as above Assessment Details Patient Education Other Continue to stress importance of exercise, elevation, compression components of self care due to patient's very sedentary lifestyle. Also encouraged hydration with patient drinking 8 oz over the course of session Other Other application Cetaphil lotion [place] LE's in distal to proximal direction Physical Therapy Assessment Goals Three Impairment ROM and strength impairments Short Term Goal (STG Patient will be able to demonstrate all HEP ex with min ) cues and report compliance 5/7 days STG Duration 12/27/24 Casting Agent Goal (LTG) Patient will demonstrate improved ankle ROM to WNL and Hip strength [place] at least 4/5 to allow him to return to prior level of function LTG Duration 02/16/25 Two Impairment lymhedema life impact scale 44% Short Term Goal (STG Decrease lymphedema life impact scale to no greater ) than 30% as measure of improved function and quality of life STG Duration 12/27/24 Casting Agent Goal (LTG) Decrease lymphedema life impact scale to no greater than 20% as measure of improved function and quality of life LTG Duration 02/16/25 One Impairment lymphedema [place] LE's toes to knees Short Term Goal (STG Patient will be instructed in all aspects of lymphedema ) self-care to include skin care, elevation, self- massage, self-bandaging/compression options, and lymphedema exercises. STG Duration 12/27/24 Residential Goal (LTG) Decrease patient?s lymphedema to a stable level (no increase or decrease greater than 1 cm over the course of 1 week), patient to be independent with all aspects of self-care for lymphedema, and will obtain appropriate compression garment for lymphedema management in the home including ability to don and doff compression garments independently or with the assistance of his . LTG Duration 02/16/25 Assessment Summary Assessment Circumferential measurements taken after ther ex, noted decrease all measurements left, increased most on right. Noted decrease in edema [place] LE's during treatment. Good paula ther ex stressing rationale for improved strength and improved lymphatic flow. Discussed what he enjoys doing to enocurage increased mobility; has classic car, encouraged care and taking drives with his . Educated in 4WW types and use as they are interested in obtaining; demonstrated good understanding after education. Physical Therapy Plan Frequency and Duration Frequency of 20 Treatment Duration of 12 treatment (weeks) Plan of Care Start 11/26/24 Date Plan of Care End 02/26/25 Date Next Visit Focus/Plan Next Note Type Treatment Note Next Visit Plan Circumferential measurements, ther ex with trial standing ex for ankle, knee, and hip strengthening at wall or in parallel bars. Continue CDT.
== END 2025-01-23 08:41 | disposition home or self-care (01) ==
LOC: PHYS 09:00
PROVIDERS: Family Provider Family Medicine; PCP Family Medicine; Referring Provider Orthopaedic Surgery Adult Reconstructive Orthopaedic Surgery; Visit Provider Orthopaedic Surgery Adult Reconstructive Orthopaedic Surgery
DX: I89.0 Lymphedema, not elsewhere classified (principal); S72.11 Fracture of greater trochanter of femur; R53.1 Weakness
CPT/HCPCS: 97110; 97140; 97162; 97535

== ENCOUNTER → 2024-12-13 08:47 | Outpatient (CLI) | payer MEDICARE, SELFPAY ==
[2024-10-25 14:10] VITALS: BMI 16.1
[2024-12-13 10:26] LABS: Magnesium 1.3 mg/dL (1.6-2.3)
== END ==
PROVIDERS: Family Provider Family Medicine; PCP Family Medicine; Referring Provider Physician Assistant; Visit Provider Physician Assistant
DX: E83.42 Hypomagnesemia (principal)
CPT/HCPCS: 36415; 83735

== ENCOUNTER → 2024-12-26 11:27 | Outpatient (CLI) | payer MEDICARE, SELFPAY ==
[2024-10-25 14:10] VITALS: BMI 16.1
[2024-12-26 13:02] LABS: Prostate Specific Antigen 22.9 ng/mL (0.10-4.00)
== END ==
PROVIDERS: PCP Family Medicine; Referring Provider Urology; Visit Provider Urology
DX: C61 Malignant neoplasm of prostate (principal)
CPT/HCPCS: 36415; 84153

== ENCOUNTER 2025-01-02 15:14 | Inpatient (IN) | payer MEDICARE, SELFPAY ==
[2024-10-25 14:10] VITALS: BMI 16.1
[2025-01-02] VITALS (9 sets, daily range): BP systolic 105–135; BP diastolic 57–72; PULSE 90–116; RESP 16–25; TEMP 36.4–37.1; O2SAT 93–100; BMI 14.3; BMI 15.6
--- NOTE | 2025-01-02 15:30 | EKG_ITS ---
[address] [address] [place] [address] Test Date: 2025-01-02 Pat Name: Ramesh Em Department: Room: Gender: Male Collection Clerk: : 1945 Requested By: Order Number: [id number] Reading MD: Alireza Alba MD Measurements Intervals [place] Rate: 103 P: 92 [place]: 168 QRS: 65 QRSD: 94 T: 69 QT: 398 QTc: 521 Interpretive Statements Sinus tachycardia with premature atrial complexes with aberrant conduction Cannot rule out Anterior infarct , age undetermined Prolonged QT Electronically Signed On 01-03-2025 8:03:34 PDT by Alireza Alba MD
--- NOTE | 2025-01-02 15:31 | DI.RAD.S_ITS ---
PROCEDURE: XR CHEST 1V INDICATIONS: Shortness of breath TECHNIQUE: One view of the chest was acquired. COMPARISON: [facility], CT, CT CHEST WO CON, 12/14/2023, 11:55. [facility], CR, XR CHEST 1V, 10/13/2024, 16:01. FINDINGS: Surgical changes and devices: None. Lungs and pleura: Lungs are clear, the hyperexpanded. No pleural effusions or pneumothorax. Mediastinum: Mediastinal contours appear normal. Heart size is normal. Atherosclerotic calcification of the aortic arch is noted. Bones and chest wall: No suspicious bony lesions. Age-appropriate bony degenerative changes are seen. Overlying soft tissues appear unremarkable. IMPRESSION: Hyperexpanded lungs, without an acute cardiopulmonary process identified. Dictated by: Ki Gilliland M.D. on 01/02/2025 at 15:25 Approved by: Ki Gilliland M.D. on 01/02/2025 at 15:26
[2025-01-02 16:08] LABS: Add Manual Diff / Slide Review NO; Hematocrit 28.5 % (41-53); Hemoglobin 10.0 g/dL (13.5-17.5); Lymphocytes Absolute Auto 1000 /uL (1100-4500); Mean Corpuscular HGB Conc 34.9 % (30-36); Mean Corpuscular Hemoglobin 33.9 PG (26-34); Mean Corpuscular Volume 97.1 fL (80-100); Platelet Count 288 X10^3/uL (150-400)
[2025-01-02 16:15] LABS: INR 1.0 (0.9-1.3); Prothrombin Time 11.6 SECONDS (9.4-12.5)
[2025-01-02 16:19] LABS: Lactate (Lactic Acid) 3.0 mmol/L (0.7-2.1)
[2025-01-02 16:20] LABS: Alanine Aminotransferase 15 IU/L (<50); Albumin 2.5 g/dL (3.5-5.0); Albumin Globulin Ratio 0.8 (1.0-2.8); Alkaline Phosphatase 136 U/L (38-126); Blood Urea Nitrogen 5 mg/dL (9-20); Calcium 7.8 mg/dL (8.4-10.2); Carbon Dioxide 31 mmol/L (22-32); Chloride 89 mmol/L (98-107); Estimated Glomerular Filt Rate > 60 mL/min (>60); Globulin 3.2 g/dL (1.7-4.1); Glucose 143 mg/dL (70-99); HEMOLYSIS < 15 (0-50); Sodium 126 mmol/L (137-145); Total Protein 5.7 g/dL (6.3-8.2)
--- NOTE | 2025-01-02 16:26 | ED.SOB ---
HPI - SOB/Dyspnea General Chief Complaint: Shortness of Breath/Dyspnea Stated Complaint: Low BP, pcp ref(fluids) Time Seen by Provider: 01/02/25 15:49 Source: patient Mode of arrival: Wheelchair Limitations: no limitations History of Present Illness HPI Narrative: Patient has been short of breath for the last few weeks. Patient is a smoker. No history of COPD emphysema or breathing treatments. Patient states last year he did have heart catheterization at [facility]. Patient in no distress. He has been very short of breath without chest pain walking to the mailbox, he uses a walker. Patient's speaks full sentences. Has diminished by basilar lung sounds. Related Data Home Medications ?Medication ?Instructions ?Recorded ?Confirmed latanoprost 0.005 % eye drops 1 drp EYE-LEFT BEDTIME 09/03/22 01/02/25 aspirin 325 mg tablet 325 mg PO DAILY 10/25/23 01/02/25 clopidogrel 75 mg tablet 75 mg PO DAILY 10/25/23 01/02/25 dorzolamide 22.3 mg-timolol 6.8 1 drp EYE-LEFT Q12H 10/25/23 01/02/25 mg/mL eye drops ferrous sulfate 325 mg (65 mg 325 mg PO DAILY 02/08/24 01/02/25 iron) tablet (Feosol) timolol maleate 0.5 % once daily 1 drp EYE-BOTH DAILY 12/13/24 01/02/25 eye drops Previous Rx's ?Medication ?Instructions ?Recorded metoprolol succinate 25 mg 12.5 mg (1/2 x 25 mg) PO DAILY #90 10/26/23 tablet,extended release 24 hr tabs tamsulosin 0.4 mg capsule 0.4 mg PO ONCE PM #90 caps 02/24/24 sodium chloride 1,000 mg soluble 1,000 mg PO BID #180 tabs 05/09/24 tablet atorvastatin 20 mg tablet 20 mg PO DAILY #90 tabs 07/02/24 furosemide 20 mg tablet 20 mg PO DAILY #90 tabs 08/16/24 lisinopril 40 mg tablet 40 mg PO DAILY #90 tabs 10/11/24 calcitonin (salmon) 200 See Rx Instructions .Route 10/29/24 unit/actuation nasal spray .COMPLEX #3.7 mL esomeprazole magnesium 20 mg 20 mg PO DAILY #90 caps 12/17/24 capsule,delayed release folic acid 1 mg tablet 1 mg PO DAILY #90 tabs 12/17/24 nicotine 21 mg/24 hr daily 1 patch transdermal DAILY #28 ea 01/01/25 transdermal patch Allergies Allergy/AdvReac Type Severity Reaction Status Date / Time No Known Drug Allergies Allergy Verified 01/02/25 15:30 Review of Systems Review of Systems Narrative: GENERAL: Negative chills, fatigue, malaise, fever, sweats. HEENT: Negative sinus pain, ear pain, sore throat RESPIRATORY: Positive dyspnea, negative cough CARDIOVASCULAR: Negative chest pain, palpitations GASTROINTESTINAL: Negative vomiting, nausea, abdominal pain : Negative dysuria, frequency, hematuria MUSCULOSKELETAL: Negative muscle or bony pain SKIN: Negative rash, skin lesions NEUROLOGIC: Negative weakness, numbness ROS Unobtainable: All systems reviewed & are unremarkable except as noted in HPI and below Patient History Medical History Hypokalemia Fall Hypomagnesemia Diarrhea Urinary retention Hypertension Osteoarthritis T12 compression fracture Scoliosis Compression fracture of L3 lumbar vertebra Chronic obstructive pulmonary disease (01/07/14) Surgical History Anesthesia History of inguinal hernia repair Family History Mother Hyperlipidemia Sister No problems noted. Social History marital status: household members: significant other occupational status: previously employed Smoking Status: Current every day smoker alcohol intake: current substance use type: does not use Smoking Status: Current every day smoker alcohol intake frequency: 3 or more drinks per day Exam Narrative Exam Narrative: GENERAL: in no distress, not toxic not dyspneic HEAD: Normocephalic. EYES: Pupils equal round ENT: Mucous membranes moist. NECK: Trachea midline. CARDIOVASCULAR: Regular rate and rhythm RESPIRATORY: Clear to auscultation. However diminished lung sounds at the bases. Breath sounds equal bilaterally. No wheezes, rales, or rhonchi. GASTROINTESTINAL: Abdomen soft, non-tender EXTREMITIES: No gross deformities. BACK: No flank tenderness. NEURO: AOx4. Clear speech SKIN: Warm and dry PSYCH: Not anxious, is cooperative Initial Vital Signs Initial Vital Signs: Vital Signs Pulse Rate 116 H 01/02/25 15:28 Respiratory Rate 24 01/02/25 15:28 Pulse Oximetry 100 01/02/25 15:28 Course Orders Ordered: Acetaminophen (Acetaminophen 325 Mg Tablet) 650 mg PO Q6H PRN PRN Reason: Fever/Mild Pain (1-3) Hydrocodone Bitart/Acetaminophen (Hydrocodone/Acet 5/325 Tablet) 1 tab PO Q4H PRN PRN Reason: Pain, Moderate (4-6) Albuterol/Ipratropium (Albuterol/Ipratropium 3 Ml Ampul) 3 ml INH ENH2HGRN [facility] Last Admin: 01/03/25 07:44 Dose: 3 ml Documented By: Admin: 01/02/25 19:44 Dose: 3 ml Documented By: CHRIS Amoxicillin/Clavulanate Potassium (Amoxicillin/Clav 875/125 Mg) 1 tab PO BID [facility] Last Admin: 01/03/25 08:32 Dose: 1 tab Documented By: Admin: 01/02/25 20:46 Dose: 1 tab Documented By: AUGUST Atorvastatin Calcium (Atorvastatin 20 Mg Tablet) 20 mg PO DAILY [facility] Last Admin: 01/03/25 08:30 Dose: 20 mg Documented By: ISABELL Clopidogrel Bisulfate (Clopidogrel 75 Mg Tablet) 75 mg PO DAILY [facility] Last Admin: 01/03/25 08:31 Dose: 75 mg Documented By: ISABELL Enoxaparin Sodium (Enoxaparin 40 Mg/0.4 Ml Syringe) 40 mg SUBCUT DAILY [facility] Last Admin: 01/03/25 08:30 Dose: 40 mg Documented By: ISABELL Sodium Chloride (Normal Saline 0.9%) 1,000 mls @ 75 mls/hr IV CONT [facility] Last Infusion: 01/02/25 18:49 Dose: 75 mls/hr Documented By: Infusion: 01/02/25 18:28 Dose: 0 mls/hr Documented By: Admin: 01/02/25 17:56 Dose: 75 mls/hr Documented By: SHANNA Lisinopril (Lisinopril 20 Mg Tablet) 40 mg PO DAILY [facility] Last Admin: 01/03/25 08:33 Dose: 40 mg Documented By: ISABELL Methylprednisolone (Methylprednisolone Succ 125 Mg/2 Ml Vial) 60 mg IV BID [facility] Last Admin: 01/03/25 08:27 Dose: 60 mg Documented By: Admin: 01/02/25 20:44 Dose: Not Given Documented By: AUGUST Metoprolol Succinate (Metoprolol Er 25 Mg Tablet) 12.5 mg PO DAILY [facility] Last Admin: 01/03/25 08:30 Dose: 12.5 mg Documented By: ISABELL Nicotine (Nicotine 21 Mg Patch) 21 mg TOP DAILY [facility] Last Admin: 01/03/25 08:33 Dose: 21 mg Documented By: ISABELL Ondansetron HCl (Ondansetron 4 Mg/2 Ml Inj) 4 mg IV Q8HR PRN PRN Reason: Nausea And Vomiting Tamsulosin HCl (Tamsulosin 0.4 Mg Capsule) 0.4 mg PO QPM [facility] Last Admin: 01/02/25 20:46 Dose: 0.4 mg Documented By: AUGUST Discontinued Medications Albuterol/Ipratropium (Albuterol/Ipratropium 3 Ml Ampul) 3 ml INH NOW ONE Stop: 01/02/25 16:31 Last Admin: 01/02/25 16:32 Dose: 3 ml Documented By: ANABELLE Aspirin (Aspirin 81 Mg Chew Tab) 324 mg PO NOW ONE Stop: 01/02/25 15:36 Last Admin: 01/02/25 21:13 Dose: Not Given Documented By: AUGUST POTASSIUM CHLORIDE IN WATER (Potassium Cl 10 Meq/100 Ml Nahomi) 10 meq in 100 mls @ 100 mls/hr IV Q1H [facility] Stop: 01/02/25 18:44 Last Admin: 01/02/25 19:08 Dose: Not Given Documented By: Infusion: 01/02/25 17:57 Dose: Infused Documented By: Admin: 01/02/25 16:45 Dose: 100 mls/hr Documented By: SHANNA Magnesium Sulfate (Magnesium Sulfate) 2 gm in 50 mls @ 25 mls/hr IV NOW ONE Stop: 01/02/25 18:57 Last Infusion: 01/02/25 20:47 Dose: Infused Documented By: AUGUST Co-signed By: HUSEYIN Infusion: 01/02/25 18:50 Dose: 25 mls/hr Documented By: MICHAELA Co-signed By: WANG Infusion: 01/02/25 18:28 Dose: 0 mls/hr Documented By: SHANNA Co-signed By: VICTORIA Admin: 01/02/25 17:04 Dose: 25 mls/hr Documented By: SHANNA Co-signed By: JORGE POTASSIUM CHLORIDE IN WATER (Potassium Cl 10 Meq/100 Ml Nahomi) 10 meq in 100 mls @ 100 mls/hr IV Q1H [facility] Stop: 01/02/25 22:38 Last Infusion: 01/03/25 01:34 Dose: Infused Documented By: Admin: 01/03/25 00:34 Dose: 100 mls/hr Documented By: Infusion: 01/03/25 00:08 Dose: Infused Documented By: Admin: 01/02/25 23:08 Dose: 100 mls/hr Documented By: Infusion: 01/02/25 23:01 Dose: Infused Documented By: Admin: 01/02/25 22:01 Dose: 100 mls/hr Documented By: Infusion: 01/02/25 21:47 Dose: Infused Documented By: Admin: 01/02/25 20:47 Dose: 100 mls/hr Documented By: AUGUST POTASSIUM CHLORIDE IN WATER (Potassium Cl 10 Meq/100 Ml Nahomi) 10 meq in 100 mls @ 100 mls/hr IV Q1H [facility] Stop: 01/03/25 01:44 Last Infusion: 01/03/25 01:35 Dose: 0 mls/hr Documented By: Admin: 01/03/25 00:45 Dose: 100 mls/hr Documented By: BERT Methylprednisolone (Methylprednisolone Succ 125 Mg/2 Ml Vial) 125 mg IV NOW ONE Stop: 01/02/25 16:30 Last Admin: 01/02/25 16:45 Dose: 125 mg Documented By: SHANNA Potassium Chloride (Potassium Chloride 20 Meq Tab) 40 meq PO NOW ONE Stop: 01/02/25 16:34 Last Admin: 01/02/25 16:45 Dose: 40 meq Documented By: SHANNA Vital Signs Vital signs: Vital Signs - 8 hr 01/02/25 15:30 01/02/25 16:32 Temperature 98.7 F Pulse Rate 110 H 100 H Respiratory Rate 25 H 16 Blood Pressure 110/57 L Pulse Oximetry 99 98 Oxygen Delivery Method Room Air Room Air MDM - SOB/Dyspnea Lab Data 01/03/25 05:08 01/03/25 05:08 Labs: Lab Results 01/02/25 Range/Units 16:00 WBC 8.6 (4.5-11.0) X10^3/uL RBC 2.93 L (4.5-5.9) X10^6/uL Hgb 10.0 L (13.5-17.5) g/dL Hct 28.5 L (41-53) % MCV 97.1 (80-100) fL MCH 33.9 (26-34) PG MCHC 34.9 (30-36) % RDW 15.6 H (11.6-14.8) % Plt Count 288 (150-400) X10^3/uL Neut % (Auto) 75.5 H (50-75) % Lymph % (Auto) 11.8 L (25-40) % [place] % (Auto) 11.6 (3-14) % Eos % (Auto) 0.7 L (2-4) % Baso % (Auto) 0.4 (0-2) % Neut # (Auto) 6500 (2831-4771) /uL Lymph # (Auto) 1000 L (5931-1247) /uL [place] # (Auto) 1000 H (0-900) /uL Eos # (Auto) 100 (0-450) /uL Baso # (Auto) 0 (0-100) /uL PT 11.6 (9.4-12.5) SECONDS INR 1.0 (0.9-1.3) Sodium 126 L (137-145) mmol/L Potassium 2.5 L* (3.4-5.1) mmol/L Chloride 89 L (98-107) mmol/L Carbon Dioxide 31 (22-32) mmol/L BUN 5 L (9-20) mg/dL Creatinine 0.86 (0.66-1.25) mg/dL Estimated GFR > 60 (>60) mL/min BUN/Creatinine Ratio 5.8 L (6-22) Glucose 143 H (70-99) mg/dL Lactate 3.0 H (0.7-2.1) mmol/L Calcium 7.8 L (8.4-10.2) mg/dL Magnesium 1.5 L (1.6-2.3) mg/dL Total Bilirubin 0.6 (0.2-1.3) mg/dL AST 27 (17-59) IU/L ALT 15 (<50) IU/L Alkaline Phosphatase 136 H (38-126) U/L Troponin I < 0.012 (0.01-0.034) ng/mL NT-Pro-B Natriuret Pep 2050 H (<450) pg/mL Total Protein 5.7 L (6.3-8.2) g/dL Albumin 2.5 L (3.5-5.0) g/dL Globulin 3.2 (1.7-4.1) g/dL Albumin/Globulin Ratio 0.8 L (1.0-2.8) Imaging Data Chest x-ray: Radiologist's Impression: [address] [address] XRay Report Signed Patient: Ramesh Em MR#: [id number] : 1945 Acct:[id number] Age/Sex: 79 / M Date of Service: 01/02/25 Loc: ED Accession Number: [id number] Procedure: XR chest 1V Ordering Provider: Rolando Del Rosario MD PROCEDURE: XR CHEST 1V INDICATIONS: Shortness of breath TECHNIQUE: One view of the chest was acquired. COMPARISON: [facility], CT, CT CHEST WO CON, 12/14/2023, 11:55. [facility], CR, XR CHEST 1V, 10/13/2024, 16:01. FINDINGS: Surgical changes and devices: None. Lungs and pleura: Lungs are clear, the hyperexpanded. No pleural effusions or pneumothorax. Mediastinum: Mediastinal contours appear normal. Heart size is normal. Atherosclerotic calcification of the aortic arch is noted. Bones and chest wall: No suspicious bony lesions. Age-appropriate bony degenerative changes are seen. Overlying soft tissues appear unremarkable. IMPRESSION: Hyperexpanded lungs, without an acute cardiopulmonary process identified. Dictated by: Ki Gilliland M.D. on 01/02/2025 at 15:25 Approved by: Ki Gilliland M.D. on 01/02/2025 at 15:26 MDM Narrative Medical decision making narrative: Patient has been short of breath for the last few weeks. Patient is a smoker. No history of COPD emphysema or breathing treatments. Patient states last year he did have heart catheterization at [facility]. Patient in no distress. He has been very short of breath without chest pain walking to the mailbox, he uses a walker. Patient's speaks full sentences. Has diminished by basilar lung sounds. MDM After history and exam, CBC CMP EKG chest x-ray troponin BNP D-dimer breathing treatment Solu-Medrol Differential considered: Includes but not limited to COPD exacerbation pneumonia STEMI non-STEMI angina pulmonary embolism Medical records reviewed: No recent visit for this complaint Lab Test results independently reviewed as above. Pertinent findings: WBC 8.6 hemoglobin 10 hematocrit 28 INR 1.0 sodium 126 at baseline potassium 2.5 magnesium 1.5 troponin less than 0.012 BNP 2050 Independently reviewed EKG sinus tachycardia rate 103 Imaging studies independently reviewed: Chest x-ray hyperexpanded lungs Consultations: 4:[address] Leavitt, who will admit patient Re-evaluations: 5:00 p.m.. Updated patient and family results and Dr. Leavitt is going to admit him. He is very short of breath on attempt to walk in hallway on room air. Discussion: Appropriate for admission for COPD exacerbation steroids breathing treatments. Will need replacement potassium as well. Sodium/hyponatremia as chronic Diagnosis: COPD exacerbation hypokalemia Discharge Plan Departure Patient Disposition: Admitted as Observation Clinical Impression: COPD exacerbation, Acute hypokalemia, Hypomagnesemia Admit Date/Time: 01/02/25 16:57 Admit Provider: Vishal Leavitt
--- NOTE | 2025-01-02 16:29 | PC.NURSE ---
patient was able to walk 50 ft with a walker on pulse ox: 02 sat stayed between 94-98%
[2025-01-02 16:30] LABS: Potassium 2.5 mmol/L (3.4-5.1)
[2025-01-02 16:32] LABS: NT-proBNP (BNP-Adult 18+) 2050 pg/mL (<450); Troponin I < 0.012 ng/mL (0.01-0.034)
[2025-01-02] MEDS: ALBUTEROL/IPRATROPIUM 3 ML AMPUL INH ×2 (16:32→19:44)
[2025-01-02] MEDS: POTASSIUM CHLORIDE IN WATER 10 MEQ/100 ML PIGGYBACK 100 MEQ IV ×4 (16:45→23:08)
[2025-01-02] MEDS: methylPREDNISolone succ 125 MG/2 ML VIAL IV (16:45)
[2025-01-02] MEDS: POTASSIUM CHLORIDE 20 MEQ TAB 40 MEQ PO (16:45)
[2025-01-02 16:50] LABS: Magnesium 1.5 mg/dL (1.6-2.3)
--- NOTE | 2025-01-02 17:03 | DI.ECHO.S_ITS ---
[facility] : : [address] : : [place] : : [id number] : : Phone: [phone] Echocardiogram Report + + :Name: ZEN TREVIÑO Study Date: 01/03/2025 Height: 70 in : :Hospital ReadingLocation: Weight: 100 lb : : Gender: Male BSA: 1.6 m2 : :: 1945 Age: 79 yrs BP: 105/69 mmHg: :Reason For Study: SHORTNESS OF BREATH : :Ordering Physician: MAYANK, : :RENEA Performed By: Roberta Miller : :Referring: RENEA TALLEY : + + Interpretation Summary - Left ventricular contractility is normal. Estimated ejection fraction is greater than 55% with no segmental wall motion abnormalities. No LVH. Normal diastolic function. - The right ventricular contractility is normal. - All cardiac chambers are of normal size. - Trace to mild aortic insufficiency. - No obvious intracardiac shunts. - No obvious intracardiac masses nor thrombi. - No hemodynamically significant pericardial effusion. - Low right-sided filling pressures. - Mildly dilated aortic root and ascending thoracic aorta without obvious dissection. Conclusion: Normal biventricular function with no significant valvular abnormalities. When compared with previous echocardiogram, there does appear to be an improvement in the left ventricular systolic function. Procedure: A two-dimensional transthoracic echocardiogram with color flow and Doppler was performed. The study quality was technically adequate. Comparison is made with the echocardiogram of 08/11/2023. The patient was in sinus rhythm with heart rates between 90-99 bpm during the exam. The patient had occasional PVCs during the exam. Left Ventricle: The left ventricle is normal in size and wall thickness. The ejection fraction is estimated to be 55-60%. Left ventricular wall motion is normal. Normal diastolic function. Right Ventricle: The right ventricle is normal in size and function. Atria: The left atrial size is normal. Right atrial size is normal. There is no Doppler evidence for an interatrial shunt. Mitral Valve: The mitral valve leaflets appear mildly thickened. There is mild mitral annular calcification. There is trace mitral regurgitation. Aortic Valve: The aortic valve is trileaflet. The aortic valve opens well. There is mild aortic stenosis. There is mild aortic regurgitation. Tricuspid Valve: The tricuspid valve leaflets are thin and pliable. The right ventricular systolic pressure is estimated to be at least 24 mmHg based on an estimated right atrial pressure of 3 mm Hg. There is trace tricuspid regurgitation. Pulmonic Valve: The pulmonic valve leaflets are thin and pliable; valve motion is normal. There is a trace or physiologic amount of pulmonic regurgitation. Great Vessels: The aortic root is mildly dilated. The ascending aorta is mildly enlarged. The IVC is of normal diameter and collapses greater than 50% with a sniff. This suggests a low right atrial pressure of 3 mm Hg. Pericardium/ Pleura There is no pericardial effusion. There is no pleural effusion. MMode/2D Measurements & Calculations LVIDd: 4.5 cm LVOT diam: 2.2 cm LVIDs: 2.7 cm Ao root diam: 4.1 cm FS: 39.8 % asc Aorta Diam: 3.9 cm IVSd: 0.75 cm Ao Arch Diam (Prox Trans): 2.7 cm LVPWd: 0.72 cm LV scott. diameter/BSA (cm/m^2): 2.9 LV sys. diameter/BSA (cm/m^2): 1.7 LA A2 area: 13.2 cm2 RA long axis: 4.2 cm LA A4 area: 9.8 cm2 RA area: 10.2 cm2 LA length (vol): 4.0 cm RA vol: 21.1 ml LA vol: 27.2 ml RA : 13.6 ml/m2 LA vol index: 17.5 ml/m2 IVC diam: 1.4 cm RVD1 (basal): 3.0 cm RVD2 (mid): 2.9 cm TAPSE: 2.1 cm Doppler Measurements & Calculations Ao V2 max: 122.2 cm/sec LVOT Max Chevy: 108.8 cm/sec Ao V2 mean: 81.1 cm/sec LV V1 max P.7 mmHg Ao max P.0 mmHg LV V1 VTI: 19.3 cm Ao mean P.0 mmHg KEILA(I,D): 3.4 cm2 Ao V2 VTI: 21.0 cm KEILA(V,D): 3.3 cm2 sev ratio: 0.92 KEILA indexed to BSA (cm^2/m^2): 2.2 MV E max chevy: 51.4 cm/sec TR max chevy: 231.2 cm/sec MV A max chevy: 89.0 cm/sec TR max P.4 mmHg MV E/A: 0.58 PA V2 max: 81.4 cm/sec Med Peak E' Chevy: 5.5 cm/sec PA V2 mean: 58.5 cm/sec E/E' med: 9.3 PA mean P.5 mmHg Lat Peak E' Chevy: 7.8 cm/sec BLAIRE pr(Accel): 45.2 mmHg E/E' lat: 6.6 E/e' average: 7.9 MV dec time: 0.25 sec SV(LVOT): 72.1 ml Reading Physician:HARINDER
[2025-01-02] MEDS: MAGNESIUM SULFATE 2 GM/50 ML PIGGYBACK IV (17:04)
--- NOTE | 2025-01-02 17:04 | PM.HP.IH.1 ---
History of Present Illness History of Present Illness Date Patient Seen: 01/02/25 Time Patient Seen: 17:17 Chief complaint: Low BP, pcp ref(fluids) Narrative: 79-year-old male with a past medical history of nicotine dependence COPD prostate cancer peripheral arterial disease MUGUS gastroesophageal reflux osteoarthritis left spine with compression fracture hypertension prevents to the emergency department with increasing shortness of breath for the last 2 weeks. Patient has a history of chronic smoking. Patient has known history of emphysema. He has currently not on inhalers as he says they do not work. On arrival to the emergency department he was found to be hypotensive. Patient was significantly short of breath and had a difficult time ambulating. Patient states he has had his teeth removed recently and has not been eating well as he is awaiting for dentures. Patient states he only takes a little bit of oatmeal in the morning. Patient is continuing to smoke but recently just bought some nicotine patches in the hopes to quit. He has not complaining of any headache or dizziness. He says he has increasing cough he has not having fevers his who was sitting next to him notices that he coughs all the time. He is having increased mucus production. He has not been having any chest pain. He has not noticed any appreciable lower extremity edema. He has some chronic back discomfort from his osteoarthritis of his spine. He recently had an appointment with Dr. Rosenbaum's urologist as he has been diagnosed with prostate cancer and they are doing active surveillance of this disease due to his age and comorbid conditions. Laboratory tests of note hemoglobin 10.0 hematocrit 28.5 potassium 2.5 lactate 3.0 magnesium 1.5 BNP 2050 protein and albumin low chest x-ray shows no infiltrates pulse patient is slightly tachycardic patient is hypotensive. [facility] Medical History Hypokalemia Fall Hypomagnesemia Diarrhea Urinary retention Hypertension Osteoarthritis T12 compression fracture Scoliosis Compression fracture of L3 lumbar vertebra Chronic obstructive pulmonary disease (01/07/14) Surgical History Anesthesia History of inguinal hernia repair Family History Mother Hyperlipidemia Sister No problems noted. Social History marital status: household members: significant other occupational status: previously employed Smoking Status: Current every day smoker alcohol intake: current substance use type: does not use Meds Home Medications and Allergies Home Medications ?Medication ?Instructions ?Recorded ?Confirmed ?Type latanoprost 0.005 % eye drops 1 drp EYE-LEFT BEDTIME 09/03/22 01/02/25 History aspirin 325 mg tablet 325 mg PO DAILY 10/25/23 01/02/25 History clopidogrel 75 mg tablet 75 mg PO DAILY 10/25/23 01/02/25 History dorzolamide 22.3 mg-timolol 6.8 1 drp EYE-LEFT Q12H 10/25/23 01/02/25 History mg/mL eye drops metoprolol succinate 25 mg 12.5 mg (1/2 x 25 mg) PO DAILY #90 10/26/23 01/02/25 Rx tablet,extended release 24 hr tabs ferrous sulfate 325 mg (65 mg 325 mg PO DAILY 02/08/24 01/02/25 History iron) tablet (Feosol) tamsulosin 0.4 mg capsule 0.4 mg PO ONCE PM #90 caps 02/24/24 01/02/25 Rx sodium chloride 1,000 mg soluble 1,000 mg PO BID #180 tabs 05/09/24 01/02/25 Rx tablet atorvastatin 20 mg tablet 20 mg PO DAILY #90 tabs 07/02/24 01/02/25 Rx furosemide 20 mg tablet 20 mg PO DAILY #90 tabs 08/16/24 01/02/25 Rx lisinopril 40 mg tablet 40 mg PO DAILY #90 tabs 10/11/24 01/02/25 Rx calcitonin (salmon) 200 See Rx Instructions .Route 10/29/24 01/02/25 Rx unit/actuation nasal spray .COMPLEX #3.7 mL timolol maleate 0.5 % once daily drp EYE-BOTH DAILY 12/13/24 01/02/25 History eye drops esomeprazole magnesium 20 mg 20 mg PO DAILY #90 caps 12/17/24 01/02/25 Rx capsule,delayed release folic acid 1 mg tablet 1 mg PO DAILY #90 tabs 12/17/24 01/02/25 Rx nicotine 21 mg/24 hr daily 1 patch transdermal DAILY #28 ea 01/01/25 01/02/25 Rx transdermal patch Allergies Allergy/AdvReac Type Severity Reaction Status Date / Time No Known Drug Allergies Allergy Verified 01/02/25 15:30 Exam Vital Signs (past 8 hours): - 01/02/25 15:30 01/02/25 16:32 Temperature 98.7 F Pulse Rate 110 H 100 H Respiratory Rate 25 H 16 Blood Pressure 110/57 L Pulse Oximetry 99 98 Oxygen Delivery Method Room Air Room Air Oxygen Delivery Method Room Air Narrative Exam Narrative: Gen.: [Alert and oriented x3 no apparent distress.] HEENT: [NCAT PERRLA tympanic membranes are clear nares are patent oral mucosa is moist no tonsillar hypertrophy neck is supple without lymphadenopathy no thyroid enlargement.] Cardio: [S1-S2 regular rate and rhythm no murmurs appreciated.] Respiratory: [Lungs are clear to auscultation no wheezes or crackles normal respiratory effort.] Abdomen: [Soft nontender no rebound or guarding no liver spleen enlargement no appreciable hernias] Extremities: [Full range of motion no appreciable weakness no cyanosis or edema.] Neurologic: [Grossly intact.] Objective Labs 01/02/25 16:00 01/02/25 16:00 Labs: Laboratory Results - last 24 hr 01/02/25 16:00 WBC 8.6 RBC 2.93 L Hgb 10.0 L Hct 28.5 L MCV 97.1 MCH 33.9 MCHC 34.9 RDW 15.6 H Plt Count 288 Neut % (Auto) 75.5 H Lymph % (Auto) 11.8 L [place] % (Auto) 11.6 Eos % (Auto) 0.7 L Baso % (Auto) 0.4 Neut # (Auto) 6500 Lymph # (Auto) 1000 L [place] # (Auto) 1000 H Eos # (Auto) 100 Baso # (Auto) 0 PT 11.6 INR 1.0 Sodium 126 L Potassium 2.5 L* Chloride 89 L Carbon Dioxide 31 BUN 5 L Creatinine 0.86 Estimated GFR > 60 BUN/Creatinine Ratio 5.8 L Glucose 143 H Lactate 3.0 H Calcium 7.8 L Magnesium 1.5 L Total Bilirubin 0.6 AST 27 ALT 15 Alkaline Phosphatase 136 H Troponin I < 0.012 NT-Pro-B Natriuret Pep 2050 H Total Protein 5.7 L Albumin 2.5 L Globulin 3.2 Albumin/Globulin Ratio 0.8 L Assessment & Plan Assessment and plan (1) Hypomagnesemia: Status: Acute (2) Acute hypokalemia: Status: Acute (3) COPD exacerbation: Status: Acute Plan COPD exacerbation. Patient will be admitted to the hospital with exacerbation of his chronic lung disease. Patient has a greater than 40 pack-year smoking history and he is currently smoking. He has not hypoxic at this time but significantly short of breath and has some slight wheezes on exam. Patient is not able to ambulate because of his shortness of breath. Patient will be started on IV steroids. IV nebulizer with the albuterol and ipratropium. Patient will also be started on appropriate COPD exacerbation antibiotics with Augmentin 875 b.i.d.. Patient will have Respiratory consult. Patient will be educated and was educated about smoking. Patient will be placed on a nicotine patch. Congestive heart failure. Patient has elevated BNP. Previous echocardiogram done approximately 1 year ago shows normal ejection fraction. This is probably contributing to his underlying shortness of breath it does not appear that he is fluid overloaded at this time going to repeat his echocardiogram place him back on his beta-iraida and BENEDICT inhibitor. Monitor his blood pressure closely. Severe protein calorie malnutrition. Patient had his dentures removed. He has hypomagnesemia hypoalbuminemia and has poor p.o. intake. Will provide a nutritional consultation. We will work on electrolyte replacements and help him come up with a dietary plan. Hypokalemia. Patient has had inadequate oral intake. Will provide potassium replacement with K riders and monitor his potassium. Hypomagnesemia. Magnesium will be replaced as well. Hypertension. Patient is hypotensive. Monitor his blood pressure closely screening really getting IV fluids and this will be continued for the next 12-24 hours. Nicotine dependence nicotine patch provided counseling provided Prostate cancer with BPH he will be continued on his Flomax. DVT prophylaxis with Lovenox Disposition and plan anticipate greater than 2 nights Time-Based Coding :: [TOTAL MINUTES] spent with patient and on the chart (including review of chart, obtaining history, exam, reviewing outside data, placing orders, documenting exam and treatment plan, and counseling patient) on [DATE]. PROFEE Rn Peritoneal Dialysis Document charge(s): Yes Charge Codes Initial inpatient/observation care: 50804
[2025-01-02 17:40] LABS: Reflexed Lactate in 2 Hours Y
[2025-01-02] MEDS: SODIUM CHLORIDE 0.9% 1,000 ML 75 ML IV (17:56)
[2025-01-02 18:41] LABS: Lactate 2HR (Lactic Acid Rflx) 2.9 mmol/L (0.7-2.1)
[2025-01-02] MEDS: AMOXICILLIN/CLAV 875/125 MG 1 TAB PO (20:46)
[2025-01-02] MEDS: TAMSULOSIN 0.4 MG CAPSULE PO (20:46)
[2025-01-03] MEDS: POTASSIUM CHLORIDE IN WATER 10 MEQ/100 ML PIGGYBACK 100 MEQ IV ×2 (00:34→00:45)
[2025-01-03 05:59] LABS: Add Manual Diff / Slide Review NO; Hematocrit 27.3 % (41-53); Hemoglobin 9.5 g/dL (13.5-17.5); Lymphocytes Absolute Auto 400 /uL (1100-4500); Mean Corpuscular HGB Conc 34.7 % (30-36); Mean Corpuscular Hemoglobin 33.6 PG (26-34); Mean Corpuscular Volume 96.8 fL (80-100); Platelet Count 288 X10^3/uL (150-400)
[2025-01-03 06:04] LABS: Alanine Aminotransferase 14 IU/L (<50); Albumin 2.3 g/dL (3.5-5.0); Albumin Globulin Ratio 0.7 (1.0-2.8); Alkaline Phosphatase 126 U/L (38-126); Blood Urea Nitrogen 7 mg/dL (9-20); Calcium 7.5 mg/dL (8.4-10.2); Carbon Dioxide 28 mmol/L (22-32); Chloride 94 mmol/L (98-107); Estimated Glomerular Filt Rate > 60 mL/min (>60); Globulin 3.1 g/dL (1.7-4.1); Glucose 186 mg/dL (70-99); HEMOLYSIS < 15 (0-50); Potassium 3.9 mmol/L (3.4-5.1); Sodium 127 mmol/L (137-145); Total Protein 5.4 g/dL (6.3-8.2)
[2025-01-03 06:05] LABS: Magnesium 1.9 mg/dL (1.6-2.3)
[2025-01-03 07:32] VITALS: PULSE 107; RESP 18; O2SAT 99
[2025-01-03 07:44] LABS: HEMOLYSIS < 15 (0-50); Iron 47 ug/dL (49-181)
[2025-01-03] MEDS: ALBUTEROL/IPRATROPIUM 3 ML AMPUL INH ×2 (07:44→19:50)
[2025-01-03 07:54] LABS: Percent Iron Saturation 35 % (20-50); Total Iron Binding Capacity 135 ug/dL (261-462); Transferrin 86 mg/dL (206-381)
[2025-01-03 08:23] LABS: Ferritin 217 ng/mL (18-464)
[2025-01-03] MEDS: methylPREDNISolone succ 125 MG/2 ML VIAL 60 MG IV (08:27)
[2025-01-03] MEDS: ENOXAPARIN 40 MG/0.4 ML SYRINGE SUBCUT (08:30)
[2025-01-03] MEDS: ATORVASTATIN 20 MG TABLET PO (08:30)
[2025-01-03] MEDS: METOPROLOL ER 25 MG TABLET 12.5 MG PO (08:30)
[2025-01-03] MEDS: CLOPIDOGREL 75 MG TABLET PO (08:31)
[2025-01-03] MEDS: AMOXICILLIN/CLAV 875/125 MG 1 TAB PO ×2 (08:32→22:07)
[2025-01-03] MEDS: NICOTINE 21 MG PATCH TOP (08:33)
--- NOTE | 2025-01-03 08:55 | P.PN_ITS ---
Subjective Subjective Date Patient Seen: 01/03/25 Time Patient Seen: 08:56 Interval history: Patient seen and evaluated this morning is at bedside. Patient states he had a good night. He feels better. He is nauseated this morning. Did not eat well. Awaiting dentures as he has had all his teeth pulled. This is limiting his oral intake. Which is contributing to his significant malnutrition dehydration and electrolyte abnormalities. Patient is wearing a nicotine patch. It has made a commitment not smoke. Breathing appears to be better. His and he agreed that he is feeling better this morning. Labs are reviewed. Patient has anemia. Electrolytes show improved potassium and magnesium. Sodium still low. Exam Vital Signs (past 8 hours): - 01/03/25 02:00 01/03/25 06:00 01/03/25 07:32 Pulse Rate 107 H Respiratory Rate 18 Pulse Oximetry 99 Oxygen Delivery Method Room Air Room Air Room Air Oxygen Flow Rate 0 Fraction of Inspired Oxygen 21 Fraction of Inspired Oxygen 21 SaO2/FiO2 Ratio 471 Oxygen Delivery Method Room Air Oxygen Flow Rate 0 Narrative Exam Narrative: Gen.: Alert resting comfortably in bed HEENT: Pupils equal round and reactive or mucosa is moist neck is supple Cardio: S1-S2 systolic murmur present Respiratory: Respiratory shows mild increased work of breathing. Some decreased breath sounds at bases no wheezes or crackles Abdomen: Soft nontender Extremities: Warm dry perfused Neurologic: No focal neurological deficits Objective Labs 01/03/25 05:08 01/03/25 05:08 Labs: Laboratory Results - last 24 hr 01/02/25 01/02/25 01/03/25 16:00 18:17 05:08 WBC 8.6 5.1 RBC 2.93 L 2.82 L Hgb 10.0 L 9.5 L Hct 28.5 L 27.3 L MCV 97.1 96.8 MCH 33.9 33.6 MCHC 34.9 34.7 RDW 15.6 H 15.7 H Plt Count 288 288 Neut % (Auto) 75.5 H 84.4 H Lymph % (Auto) 11.8 L 8.0 L [place] % (Auto) 11.6 7.5 Eos % (Auto) 0.7 L 0.0 L Baso % (Auto) 0.4 0.1 Neut # (Auto) 6500 4300 Lymph # (Auto) 1000 L 400 L [place] # (Auto) 1000 H 400 Eos # (Auto) 100 0 Baso # (Auto) 0 0 PT 11.6 INR 1.0 Sodium 126 L 127 L Potassium 2.5 L* 3.9 D Chloride 89 L 94 L Carbon Dioxide 31 28 BUN 5 L 7 L Creatinine 0.86 0.83 Estimated GFR > 60 > 60 BUN/Creatinine Ratio 5.8 L 8.4 Glucose 143 H 186 H Lactate 3.0 H 2.9 H Calcium 7.8 L 7.5 L Magnesium 1.5 L 1.9 Iron 47 L TIBC 135 L % Saturation 35 Transferrin 86 L Ferritin 217 Total Bilirubin 0.6 0.5 AST 27 23 ALT 15 14 Alkaline Phosphatase 136 H 126 Troponin I < 0.012 NT-Pro-B Natriuret Pep 2050 H Total Protein 5.7 L 5.4 L Albumin 2.5 L 2.3 L Globulin 3.2 3.1 Albumin/Globulin Ratio 0.8 L 0.7 L PFSH Medical History Hypokalemia Fall Hypomagnesemia Diarrhea Urinary retention Hypertension Osteoarthritis T12 compression fracture Scoliosis Compression fracture of L3 lumbar vertebra Chronic obstructive pulmonary disease (01/07/14) Surgical History Anesthesia History of inguinal hernia repair Family History Mother Hyperlipidemia Sister No problems noted. Social History marital status: household members: significant other occupational status: previously employed Smoking Status: Current every day smoker alcohol intake: current substance use type: does not use Assessment & Plan Assessment and plan (1) Hypomagnesemia: Status: Acute (2) Acute hypokalemia: Status: Acute (3) COPD exacerbation: Status: Acute Plan COPD exacerbation. Patient receiving IV steroids. Will convert to oral today. We will continue with dual nebulizers. We will place on inhalers at home. Patient does not feel that these help. Provide teaching today of oral inhalers by respiratory therapy. Continue with oral antibiotics Augmentin. Patient's white blood cell count is stable. Congestive heart failure. Patient has elevated BNP. Echocardiogram done this morning results still pending. Patient previously ejection fraction is normal. Patient on beta-iraida and BENEDICT inhibitor. We will make sure that there has been no significant changes in systolic function in the heart. He does not appear to be fluid overloaded Severe protein calorie malnutrition. Patient has had all his teeth removed dentures are pending. Significant calorie reduction intake. Nutritional consultation today. For recommendations around dietary. will be at bedside for this. Anemia anemia of chronic disease. Patient's ferritin level is normal. Review of iron level mildly low and TIBC is low. Continue oral iron. Patient does not need iron infusion. Hypokalemia. Potassium replacement yesterday. Potassium is better this morning. Continue to monitor Hypomagnesemia. Magnesium replacement magnesium is improved. Continue to monitor Hypertension. Patient's blood pressure was quite low yesterday improved with IV fluid hydration. Reinstitute his antihypertensive medication today. Nicotine dependence nicotine patch provided counseling provided patient insists that he will quit. Prostate cancer active surveillance with BPH he will be continued on his Flomax. DVT prophylaxis with Lovenox Disposition and plan PT consult today nutrition consult today. Anticipate discharge tomorrow. RT inhaler teaching. Time-Based Coding :: [TOTAL MINUTES] spent with patient and on the chart (including review of chart, obtaining history, exam, reviewing outside data, placing orders, documenting exam and treatment plan, and counseling patient) on [DATE]. Quality VTE Deep Vein Thrombosis/Pulmonary Embolism Present on Admission: No PROFEE Vp Integrity Document charge(s): Yes Charge Codes Subsequent inpatient/observation care: [id number]
--- NOTE | 2025-01-03 10:54 | PC.NURSE ---
Patient bladder scanned for 366 ml of urine in his bladder. He states that he self caths at home. He has not voided this shift, notified and we will give patient a 500cc bolus of NS and increase his NS to 125cc/hr.
[2025-01-03] MEDS: SODIUM CHLORIDE 0.9% 100 ML 500 ML IV (11:08)
--- NOTE | 2025-01-03 12:34 | DIET.CONS ---
Dietary Consultation Note Admission Date: 01/02/2025 16:57 Assessment: 79 y M admitted for acute hypokalemia. Dietitian consulted for malnutrition. Pt had all teeth removed and continued to have decreased PO intakes as result. Per RD consult last admission, pt was already chronically malnourished with partial teeth removal. Weight loss has continued. Met with pt and at bedside. Report continued decline in PO intakes since teeth came out. Hopeful for dentures soon. Have been doing a higher kcal/plus Ensure, but pt unable to drink multiple a day. Doesn't tolerate any meat, just soft cooked fish. Denies wanting level 5 or level 4, pureed foods. NFPE performed with severe muscle wasting in temples and deltoid and severe subcutaneous fat loss in buccal and orbital fat pads. Ht: 177.8 cm Wt: 49.5 kg BMI: 15.6 UBW: 63.64 kg 1 yr ago per family, per EMR pt has been 47-52 kg since May 2023, 52.73 kg on 11/29/24 (-6% weight loss in 1 months, severe) Last BM: 01/01/25 (01/02/25 18:28) MNA: 7 Sushant Score: 19 Diet: 01/02/25 Breakfast General (Regular) Diet Diet Modifications: Nutrition Percent Meal Consumed 10 01/03/25 09:00 Labs: RBC 2.82 X10^6/uL (4.5-5.9) L 01/03/25 05:08 Hgb 9.5 g/dL (13.5-17.5) L 01/03/25 05:08 Hct 27.3 % (41-53) L 01/03/25 05:08 Creatinine 0.83 mg/dL (0.66-1.25) 01/03/25 05:08 Lactate 2.9 mmol/L (0.7-2.1) H 01/02/25 18:17 Iron 47 ug/dL (49-181) L 01/03/25 05:08 % Saturation 35 % (20-50) 01/03/25 05:08 Ferritin 217 ng/mL (18-464) 01/03/25 05:08 NT-Pro-B Natriuret Pep 2050 pg/mL (<450) H 01/02/25 16:00 Nutrition dx: Severe acute on chronic protein calorie malnutrition r/t biting/chewing difficulty as evidenced by complete edentulism, BMI severely underweight for age (15.7), and <50% of estimated energy needs for >6 months per diet recall (severe), severe muscle wasting in temples and deltoid, severe subcutaneous fat loss in buccal and orbital fat pads Interventions: -Ensure plus/enlive chocolate TID, discussed having it as snack for small freq meals -Easy to chew/soft foods coordinated with unit host -Provided high kcal/high pro handout and reviewed tips for increasing kcals at home EER: 1750 kcals (35 kcals/kg) 75 g protein (1.5 g/kg per PCM) Monitoring/Evaluations: ONS tolerance, PO intakes Electronically Signed by: Cesia Arellano 01/03/25 12:34 Clinical Dietitian [address] [address]
[2025-01-03] MEDS: SODIUM CHLORIDE 0.9% 1,000 ML 125 ML IV ×2 (12:39→22:07)
--- NOTE | 2025-01-03 14:29 | CM.DANOTE ---
Initial DCP Assessment Note Pt is an 79 yo male, resident of [facility], admitted for management of COPD exacerbation. According to Dr Leavitt; patient is awaiting dentures as he has had all his teeth pulled which is limiting his oral intake. Reviewed chart, pt discussed in multidisciplinary rounds this morning. Patient lives mostly indp w/SO though does have poor activity tolerance with hx of falls. Patient leads a sedentary lifestyle. Therapy is pending today. No barriers identified at this time to patient's safe discharge home w/SO to assist; close outpatient f/u recommended. Social work team will plan to follow clinical course closely in case any DC needs or concerns arise. MADONNA Julian Discharge Planning/Care Management CM Discharge Assessment Start: 01/02/25 18:00 Freq: Status: Active Protocol: Document 01/03/25 14:25 FELI (Rec: 01/03/25 14:29 FELI [id number]) Discharge Planning Assessment Assigned Discharge MADONNA Nelson Dental Receptionist Provider [employer] Insurance Comment [facility] [facility]CN DPOA/Assigned EVELYN Barahona Designee Name Contact Information [phone] Advance Directives? Yes Advance Directives No on File History Provided By Patient,Family Member Prior Living House Arrangements Household Members significant other Type of Relies on Others transporation used prior to admit Independent with ADL Yes 's Is patient alert and Yes oriented? Discharge Plan Home Transportation home with partner Arrangement
[2025-01-03 16:00] VITALS: BP 129/73; PULSE 89; RESP 17; TEMP 36.2; O2SAT 95
--- NOTE | 2025-01-03 16:51 | PT.IIE ---
Current Diagnoses Hypomagnesemia (01/02/25) Hypokalemia (01/02/25) Chronic obstructive pulmonary disease with (acute) exacerbation (01/02/25) Surgical History (Last Reviewed 01/02/25 @ 15:08 by Cirilo Harris DO) Anesthesia History of inguinal hernia repair Medical History (Last Reviewed 01/02/25 @ 15:08 by Cirilo Harris DO) Chronic obstructive pulmonary disease (01/07/14) Compression fracture of L3 lumbar vertebra Diarrhea Fall Hypertension Hypokalemia Hypomagnesemia Osteoarthritis Scoliosis T12 compression fracture Urinary retention Physical Therapy Inpatient Evaluation/Re-Eval M1 PT/OT-IP Prior Functional Status Start: 01/03/25 16:52 Freq: NEEDED Status: Active Protocol: Document 01/03/25 16:51 DLM (Rec: 01/03/25 17:08 DLM Desktop) Medical Review Prior Functional Status Medical History Yes Reviewed Diet/Fluid Mechanical Soft Consistency Communication WFL, he has no teeth at this time so very limited in what he eats, he reports loosing 40# Mobility and Gait Independent with FWW or 4WW Activities of Daily assists with ADL's as needed. His does home Living and IADL's chores and drives. Social History Household Members significant other Living Arrangements House Number of Floors ( Two Floors Floors) Number of Stairs To 3-4 with rail Enter/Railing? Home Environment High Toilet,Walk in Shower Home Equipment Front Wheel Walker,Four Wheel Walker,Raised Toilet Seat w/Armrests,Hand Held Shower Employment Status Retired Additional Social [facility] History Comment M2 PT-IP Current Condition Start: 01/03/25 16:52 Freq: NEEDED Status: Active Protocol: Document 01/03/25 16:51 DLM (Rec: 01/03/25 17:08 DLM Desktop) Physical Therapy Current Condition Current Condition Evaluation Date 01/03/25 Treatment Diagnosis shortness of breath, decreased activity tolerance Onset Date 01/02/25 M3 PT-IP Subjective Start: 01/03/25 16:52 Freq: NEEDED Status: Active Protocol: Document 01/03/25 16:51 DLM (Rec: 01/03/25 17:08 DLM Desktop) Subjective Physical Therapy Visit Type Type Initial Evaluation Visit Start Time 15:25 Visit Stop Time 16:51 Notes 26 min Number of FACILITY MANAGER Visits 0 Physical Therapy Visit Comments Patient Comments He reports having and upset stomach today that he thinks is related to the medication. His reports he looks better today. Pt was able to ambulate to the bathroom earlier today. His reports his shortness of breath has improved Patient Goals Return home M4 PT-IP Mobility and Gait Start: 01/03/25 16:52 Freq: NEEDED Status: Active Protocol: Document 01/03/25 16:51 DLM (Rec: 01/03/25 17:08 DLM Desktop) PT-Bed Mobility Assessment Rolling Type of Rolling Roll to Right Level of Assist Independent Supine to Sit Supine to Sit Independent Sit to Supine Sit to Supine Independent Scooting Scooting to Edge of Independent Bed PT-Transfer Assessment Sit to and From Stand Sit to and from Standby Assistance,Use of Upper Extremities Stand Equipment Transfer Assistive Front Wheeled Walker Device Transfers Transfer Destination Bed Transfer Technique Stand Step Pivot Transfer Ability Level of Assist Standby Assistance Gait Assessment Gait Gait Assistance Standby Assistance,Contact Guard Assist Required: Distance (Feet) 20 Assistive Devices Assistive Device Front Wheeled Walker Factors Limiting Gait Function Factors Limiting Decreased Activity Tolerance,Poor Balance Gait Function Comments Gait Comments he had one lateral loss of balance where he almost tipped over the FWW and needed assist to correct he ambulated around the room but declined to do more Stair Climbing Assessment Comments Stair Climbing pt declined to do more today Comments PT-Balance Assessment Sitting Balance and Reactions Static Sitting Good Balance Ability Dynamic Sitting Good Balance Ability Standing Balance and Reactions Static Standing Good Balance Ability Dynamic Standing Fair Balance Ability Device Used FWW Comments Other Balance Tests/ recommend he slow down his pace of gait to better Deviations/Treatment manage his balance : M5 PT-IP Objective Assessments Start: 01/03/25 16:52 Freq: NEEDED Status: Active Protocol: Document 01/03/25 16:51 DLM (Rec: 01/03/25 17:08 DLM Desktop) Orientation Orientation/Cognition Level of Alertness Alert Orientation Name,Age,Birthday,Month,Date,Year,Day of Week,Place, Situation Language Function No Deficits Noted Ability Safety Awareness Decreased Safety Awareness Memory Description No Deficits Noted Gross Range of Motion Upper Extremity ROM Assessment Within Functional Limits Lower Extremity ROM Assessment Within Functional Limits Strength Upper Extremity Strength Assessment Within Functional Limits Lower Extremity Strength Assessment Within Functional Limits Coordination Assessment Gross Coordination Gross Coordination WNL Sensation Assessment Sensation Gross Sensation WNL Muscle Tone Muscle Tone WNL Yes M6 PT-IP Treatment Start: 01/03/25 16:52 Freq: NEEDED Status: Active Protocol: Document 01/03/25 16:51 DLM (Rec: 01/03/25 17:08 DLM Desktop) Physical Therapy Treatment Education Education Provided Safety Other Treatments Other Treatment discussed how to decrease his fall risks Performed M7 PT-IP Assessment and Plan Start: 01/03/25 16:52 Freq: NEEDED Status: Active Protocol: Document 01/03/25 16:51 DLM (Rec: 01/03/25 17:08 DLM Desktop) PT Summary Assessment and Plan Potential Rehabilitation Good Potential Status of Condition Evolving at Evaluation Summary Impairments Pain,Balance,Transfers,Gait,Activity Tolerance Assessment Summary Ramesh is alert and resting in bed. He was admitted with shortness of breath and hypotension. Pt reports he is not feeling any better but his reports he looks and acts better. Pt demonstrates a mild decrease in his standing balance during gait with a lateral loss of balance while ambulating in his room. His activity tolerance continues to be decreased with pt only ambulating 20 feet. Unclear if 20 feet is his max distance or if he was not motivated to do more today. Pt returned to bed after gait. No significant shortness of breath with activity at this time. His is prepared to assist him at home at discharge. Recommend home with his and home health if it is available on [facility]. He could benefit from functional strengthening, gait and balance training and increased activity tolerance. Goals Transfer Goal Independent,Front Wheeled Walker,Four Wheeled Walker Gait Goal Standby Assistance,Front Wheel Walker,Four Wheel Walker Gait Distance 150 feet Other Goals up/down 4 steps with rail and SBA Days to Meet Goals 4 Frequency of Treatment Frequency Of Once a Day Treatment Treatment Plan Physical Therapy Transfer Training,Gait Training,Therapeutic Exercise, Treatment Plan Balance Retraining,Discharge Planning,Neuromuscular Re- ed Precautions Other Precautions hx of falls hx of compression fractures T12 and L3 Recommendations To Nursing Amount of Assist 1 Person Assist Needed Discharge Recommendations PT Discharge Home with Assistance,Home with 24/ Assist Available Recommendations Other Discharge his assists him at home, could benefit from home Recommendations health if available on [facility] Transportation Needs Private Vehicle at Discharge - PT assist 1
[2025-01-03] MEDS: TAMSULOSIN 0.4 MG CAPSULE PO (18:01)
[2025-01-03 19:45] VITALS: PULSE 93; RESP 16; O2SAT 95
[2025-01-03 22:00] VITALS: BP 110/60; PULSE 88; RESP 16; TEMP 37; O2SAT 95; O2SAT 96
[2025-01-03] MEDS: ONDANSETRON 4 MG/2 ML INJ IV (22:07)
[2025-01-04 05:15] VITALS: O2SAT 96
[2025-01-04] MEDS: SODIUM CHLORIDE 0.9% 1,000 ML 125 ML IV (06:03)
[2025-01-04 06:51] LABS: Add Manual Diff / Slide Review NO; Hematocrit 24.4 % (41-53); Hemoglobin 8.4 g/dL (13.5-17.5); Lymphocytes Absolute Auto 800 /uL (1100-4500); Mean Corpuscular HGB Conc 34.3 % (30-36); Mean Corpuscular Hemoglobin 33.4 PG (26-34); Mean Corpuscular Volume 97.3 fL (80-100); Platelet Count 288 X10^3/uL (150-400)
[2025-01-04 07:02] LABS: Alanine Aminotransferase 11 IU/L (<50); Albumin 2.1 g/dL (3.5-5.0); Albumin Globulin Ratio 0.8 (1.0-2.8); Alkaline Phosphatase 99 U/L (38-126); Blood Urea Nitrogen 10 mg/dL (9-20); Calcium 7.5 mg/dL (8.4-10.2); Carbon Dioxide 28 mmol/L (22-32); Chloride 100 mmol/L (98-107); Estimated Glomerular Filt Rate > 60 mL/min (>60); Globulin 2.8 g/dL (1.7-4.1); Glucose 100 mg/dL (70-99); HEMOLYSIS < 15 (0-50); Magnesium 1.9 mg/dL (1.6-2.3); Potassium 3.6 mmol/L (3.4-5.1); Sodium 129 mmol/L (137-145); Total Protein 4.9 g/dL (6.3-8.2)
[2025-01-04 07:59] VITALS: PULSE 108; RESP 22; O2SAT 93
[2025-01-04] MEDS: ALBUTEROL/IPRATROPIUM 3 ML AMPUL INH (07:59)
[2025-01-04] MEDS: FUROSEMIDE 40 MG/4 ML VIAL IV (08:43)
[2025-01-04 08:44] VITALS: BP 111/62; PULSE 114
[2025-01-04] MEDS: METOPROLOL ER 25 MG TABLET 12.5 MG PO (08:44)
[2025-01-04 08:46] VITALS: BP 111/62; PULSE 108; RESP 18; TEMP 36.6; O2SAT 99
[2025-01-04] MEDS: AMOXICILLIN/CLAV 875/125 MG 1 TAB PO (08:51)
[2025-01-04] MEDS: NICOTINE 21 MG PATCH TOP (08:51)
[2025-01-04] MEDS: ENOXAPARIN 40 MG/0.4 ML SYRINGE SUBCUT (08:52)
[2025-01-04] MEDS: ATORVASTATIN 20 MG TABLET PO (08:53)
[2025-01-04] MEDS: CLOPIDOGREL 75 MG TABLET PO (08:53)
[2025-01-04 08:54] VITALS: BP 111/62
--- NOTE | 2025-01-04 09:31 | P.PN_ITS ---
Exam Vital Signs (past 8 hours): - 01/04/25 05:15 01/04/25 07:59 01/04/25 08:44 Temperature Pulse Rate 108 H 114 H Respiratory Rate 22 Blood Pressure 111/62 Pulse Oximetry 96 93 Oxygen Delivery Method Room Air Room Air Oxygen Flow Rate 01/04/25 08:46 01/04/25 08:54 Temperature 97.9 F Pulse Rate 108 H Respiratory Rate 18 Blood Pressure 111/62 111/62 Pulse Oximetry 99 Oxygen Delivery Method Oxygen Flow Rate 0 Fraction of Inspired Oxygen 21 SaO2/FiO2 Ratio 471 Oxygen Delivery Method Room Air Oxygen Flow Rate 0 Objective Labs 01/04/25 05:25 01/04/25 05:25 Labs: Laboratory Results - last 24 hr 01/04/25 05:25 WBC 11.8 H D RBC 2.51 L Hgb 8.4 L Hct 24.4 L MCV 97.3 MCH 33.4 MCHC 34.3 RDW 15.8 H Plt Count 288 Neut % (Auto) 83.2 H Lymph % (Auto) 6.7 L [place] % (Auto) 9.9 Eos % (Auto) 0.1 L Baso % (Auto) 0.1 Neut # (Auto) 9800 H Lymph # (Auto) 800 L [place] # (Auto) 1200 H Eos # (Auto) 0 Baso # (Auto) 0 Sodium 129 L Potassium 3.6 Chloride 100 Carbon Dioxide 28 BUN 10 Creatinine 0.72 Estimated GFR > 60 BUN/Creatinine Ratio 13.9 Glucose 100 H Calcium 7.5 L Magnesium 1.9 Total Bilirubin 0.2 AST 23 ALT 11 Alkaline Phosphatase 99 Total Protein 4.9 L Albumin 2.1 L Globulin 2.8 Albumin/Globulin Ratio 0.8 L FORMERLY [facility], 1928–1983 Medical History Hypokalemia Fall Hypomagnesemia Diarrhea Urinary retention Hypertension Osteoarthritis T12 compression fracture Scoliosis Compression fracture of L3 lumbar vertebra Chronic obstructive pulmonary disease (01/07/14) Surgical History Anesthesia History of inguinal hernia repair Family History Mother Hyperlipidemia Sister No problems noted. Social History marital status: household members: significant other occupational status: previously employed Smoking Status: Current every day smoker alcohol intake: current substance use type: does not use Assessment & Plan Time-Based Coding :: [TOTAL MINUTES] spent with patient and on the chart (including review of chart, obtaining history, exam, reviewing outside data, placing orders, documenting exam and treatment plan, and counseling patient) on [DATE]. Quality VTE Deep Vein Thrombosis/Pulmonary Embolism Present on Admission: No IH PROFEE Charge Codes Subsequent inpatient/observation care: 29394
--- NOTE | 2025-01-04 09:36 | EKG_ITS ---
[facility] [address] [place] [address] Test Date: 2025-01-04 Pat Name: Ramesh Em Department: Room: 215 Gender: Male Clerk Entry Level: : 1945 Requested By: Order Number: [id number] Reading MD: Alireza Alba MD Measurements Intervals Imperial Rate: 124 P: 41 ND: 134 QRS: -1 QRSD: 82 T: 53 QT: 282 QTc: 405 Interpretive Statements Sinus tachycardia Nonspecific T wave abnormality Electronically Signed On 01-04-2025 10:06:15 PDT by Alireza Alba MD
[2025-01-04 10:00] VITALS: O2SAT 92
--- NOTE | 2025-01-04 12:35 | P.DS_ITS ---
History of Present Illness History of Present Illness Chief complaint: Low BP, pcp ref(fluids) Narrative: 79-year-old male with a past medical history of nicotine dependence COPD prostate cancer peripheral arterial disease MUGUS gastroesophageal reflux osteoarthritis left spine with compression fracture hypertension prevents to the emergency department with increasing shortness of breath for the last 2 weeks. Patient has a history of chronic smoking. Patient has known history of emphysema. He has currently not on inhalers as he says they do not work. On arrival to the emergency department he was found to be hypotensive. Patient was significantly short of breath and had a difficult time ambulating. Patient states he has had his teeth removed recently and has not been eating well as he is awaiting for dentures. Patient states he only takes a little bit of oatmeal in the morning. Patient is continuing to smoke but recently just bought some nicotine patches in the hopes to quit. He has not complaining of any headache or dizziness. He says he has increasing cough he has not having fevers his who was sitting next to him notices that he coughs all the time. He is having increased mucus production. He has not been having any chest pain. He has not noticed any appreciable lower extremity edema. He has some chronic back discomfort from his osteoarthritis of his spine. He recently had an appointment with Dr. Rosenbaum's urologist as he has been diagnosed with prostate cancer and they are doing active surveillance of this disease due to his age and comorbid conditions. Laboratory tests of note hemoglobin 10.0 hematocrit 28.5 potassium 2.5 lactate 3.0 magnesium 1.5 BNP 2050 protein and albumin low chest x-ray shows no infiltrates pulse patient is slightly tachycardic patient is hypotensive. Discharge Providers Provider Date of admission: 01/02/25 16:57 Discharge Date: 01/04/25 Primary care physician: Vishal Leavitt MD Consults: 01/02/25 18:39 Consult to Cardio/Pulmonary Rehabilitation Routine Comment: Physician Instructions: Evaluate and treat 01/03/25 07:26 Consult to Dietitian, Adult Routine Comment: Reason For Exam: malnutrtion 01/03/25 07:27 Consult to Physical Therapy Evaluate & Treat Comment: weekness Physician Instructions: Evaluate and Treat Discharge provider: Vishal Leavitt MD Summary Hospital Course Discharge Diagnosis: COPD with exacerbation Chronic diastolic heart failure Severe protein calorie malnutrition Anemia of chronic disease Hypokalemia Hypomagnesemia Hypertension Nicotine dependence Prostate cancer BPH Hospital Course: COPD exacerbation. Patient received nebulizers IV and oral steroids and antibiotics. It is time of discharge saturations were stable. Respiratory status was improved. Patient was not requiring oxygenation. Congestive heart failure. Elevated BNP with repeat echocardiogram. Patient was given 1 dose of IV Lasix in the hospital initially had hypotension and dehydration was given fluids Lasix was provided to control fluid balance. Severe protein calorie malnutrition. Patient has had all his teeth removed dentures are pending. Significant calorie reduction intake. Nutritional intake was reviewed discussed with patient. Protein shakes were provided. And encouraged at home at discharge. Anemia anemia of chronic disease. Recheck of labs. Patient has anemia of chronic disease. Ferritin level in normal range. We will continue daily iron supplementation due to poor intake. Hypokalemia. Potassium replaced and normal at discharge Hypomagnesemia. Magnesium replacement magnesium is improved. Hypertension. Patient was slightly hypotensive. Blood pressure was changed. Patient will hold his lisinopril at home and continue with metoprolol with an increased dose due to his relative tachycardia. Nicotine dependence nicotine patch provided counseling provided patient insists that he will quit. Prostate cancer active surveillance with BPH he will be continued on his Flomax. Exam Vital Signs (past 8 hours): - 01/04/25 05:15 01/04/25 07:59 01/04/25 08:30 Temperature Pulse Rate 108 H Respiratory Rate 22 Blood Pressure Pulse Oximetry 96 93 Oxygen Delivery Method Room Air Room Air Room Air Oxygen Flow Rate 01/04/25 08:44 01/04/25 08:46 01/04/25 08:54 Temperature 97.9 F Pulse Rate 114 H 108 H Respiratory Rate 18 Blood Pressure 111/62 111/62 111/62 Pulse Oximetry 99 Oxygen Delivery Method Oxygen Flow Rate 0 01/04/25 10:00 Temperature Pulse Rate Respiratory Rate Blood Pressure Pulse Oximetry 92 Oxygen Delivery Method Room Air Oxygen Flow Rate Fraction of Inspired Oxygen 21 SaO2/FiO2 Ratio 471 Oxygen Delivery Method Room Air Oxygen Flow Rate 0 Objective Labs 01/04/25 05:25 01/04/25 05:25 Labs: Laboratory Results - last 24 hr 01/04/25 05:25 WBC 11.8 H D RBC 2.51 L Hgb 8.4 L Hct 24.4 L MCV 97.3 MCH 33.4 MCHC 34.3 RDW 15.8 H Plt Count 288 Neut % (Auto) 83.2 H Lymph % (Auto) 6.7 L [place] % (Auto) 9.9 Eos % (Auto) 0.1 L Baso % (Auto) 0.1 Neut # (Auto) 9800 H Lymph # (Auto) 800 L [place] # (Auto) 1200 H Eos # (Auto) 0 Baso # (Auto) 0 Sodium 129 L Potassium 3.6 Chloride 100 Carbon Dioxide 28 BUN 10 Creatinine 0.72 Estimated GFR > 60 BUN/Creatinine Ratio 13.9 Glucose 100 H Calcium 7.5 L Magnesium 1.9 Total Bilirubin 0.2 AST 23 ALT 11 Alkaline Phosphatase 99 Total Protein 4.9 L Albumin 2.1 L Globulin 2.8 Albumin/Globulin Ratio 0.8 L PFSH Medical History Hypokalemia Fall Hypomagnesemia Diarrhea Urinary retention Hypertension Osteoarthritis T12 compression fracture Scoliosis Compression fracture of L3 lumbar vertebra Chronic obstructive pulmonary disease (01/07/14) Surgical History Anesthesia History of inguinal hernia repair Family History Mother Hyperlipidemia Sister No problems noted. Social History marital status: household members: significant other occupational status: previously employed Smoking Status: Current every day smoker alcohol intake: current substance use type: does not use Discharge Plan Discharge Plan Patient Disposition: Home Discharge orders & Medications Prescriptions: New prednisone 20 mg tablet 40 mg PO DAILY Qty: 10 0RF amoxicillin 875 mg tablet 875 mg PO BID Qty: 10 0RF Continued tamsulosin 0.4 mg capsule 0.4 mg PO ONCE PM Qty: 90 3RF sodium chloride 1,000 mg tablet,soluble 1,000 mg PO BID Qty: 180 3RF atorvastatin 20 mg tablet 20 mg PO DAILY Qty: 90 3RF calcitonin (salmon) 200 unit/actuation spray,non-aerosol See Rx Instructions .ROUTE .COMPLEX Qty: 3.7 3RF Dose Instruction: USE 1 SPRAY INTO ONE NOSTRIL( ALTERNATE) DAILY FOR SACRAL FRACTURE FOR 3 MONTHS Rx Instructions: USE 1 SPRAY INTO ONE NOSTRIL( ALTERNATE) DAILY FOR SACRAL FRACTURE esomeprazole magnesium 20 mg capsule,delayed release(DR/EC) 20 mg PO DAILY Qty: 90 3RF folic acid 1 mg tablet 1 mg PO DAILY Qty: 90 3RF nicotine 21 mg/24 hr patch 24 hour 1 patch transdermal DAILY Qty: 28 0RF dorzolamide-timolol 22.3-6.8 mg/mL drops 1 drp EYE-LEFT Q12H Patient Comments: BID, left eye only clopidogrel 75 mg tablet 75 mg PO DAILY aspirin 325 mg tablet 325 mg PO DAILY timolol maleate 0.5 % drops, once daily 1 drp EYE-BOTH DAILY latanoprost 0.005 % drops 1 drp EYE-LEFT BEDTIME Patient Comments: INSTILL 1 DROP IN THE LEFT EYE EVERY NIGHT AT BEDTIME ferrous sulfate [Feosol] 325 mg (65 mg iron) tablet 325 mg PO DAILY Changed metoprolol succinate 25 mg tablet extended release 24 hr 12.5 mg PO BID Qty: 90 3RF Discontinued furosemide 20 mg tablet 20 mg PO DAILY Qty: 90 3RF lisinopril 40 mg tablet 40 mg PO DAILY Qty: 90 3RF Follow up/Referrals: Vishal Leavitt MD [Primary Care Provider, Family Practice] Visit Report/Discharge Packet Stand Alone Forms: Patient Portal/API, Stroke Signs & Symptoms Discharge Data Primary Care Provider: Vishal Leavitt Quality VTE Deep Vein Thrombosis/Pulmonary Embolism Present on Admission: No IH PROFEE Charge Codes Discharge inpatient/observation: [id number]
== END 2025-01-04 13:55 | disposition home or self-care (01) | DRG 190 ==
LOC: ED 16:55 → AC 17:01
PROVIDERS: Physician Assistant; Admitting Provider Family Medicine; Emergency Provider Emergency Medicine; PCP Family Medicine; Referring Provider Emergency Medicine; Visit Provider Family Medicine
DX: J44.1 Chronic obstructive pulmonary disease with (acute) exacerbation (principal); E43 Unspecified severe protein-calorie malnutrition; I50.32 Chronic diastolic (congestive) heart failure; Z68.1 Body mass index [BMI] 19.9 or less, adult; E87.6 Hypokalemia; E83.42 Hypomagnesemia; F17.200 Nicotine dependence, unspecified, uncomplicated; I11.0 Hypertensive heart disease with heart failure; I95.9 Hypotension, unspecified; N40.0 Benign prostatic hyperplasia without lower urinary tract symptoms; E86.0 Dehydration; C61 Malignant neoplasm of prostate; D63.8 Anemia in other chronic diseases classified elsewhere; M47.9 Spondylosis, unspecified; K21.9 Gastro-esophageal reflux disease without esophagitis; F17.210 Nicotine dependence, cigarettes, uncomplicated; Z79.02 Long term (current) use of antithrombotics/antiplatelets; N40.1 Benign prostatic hyperplasia with lower urinary tract symptoms; R33.9 Retention of urine, unspecified
CPT/HCPCS: 36415; 71045; 80053; 82728; 83540; 83550; 83605; 83735; 83880; 84484; 85025; 85610; 93005; 93010; 93306; 94640; 94760; 96365; 96367; 96368; 96375; 97162; 99213; 99223; 99233; 99238; 99284; J1650; J1938; J2405; J2919; J3475

== ENCOUNTER → 2025-01-28 14:08 | Outpatient (CLI) | payer MEDICARE, SELFPAY ==
[2025-01-04 14:30] VITALS: BMI 15.6
[2025-01-28 15:36] LABS: Add Manual Diff / Slide Review NO; Hematocrit 29.4 % (41-53); Hemoglobin 10.3 g/dL (13.5-17.5); Lymphocytes Absolute Auto 800 /uL (1100-4500); Mean Corpuscular HGB Conc 34.9 % (30-36); Mean Corpuscular Hemoglobin 34.1 PG (26-34); Mean Corpuscular Volume 97.6 fL (80-100); Platelet Count 270 X10^3/uL (150-400)
[2025-01-28 15:55] LABS: Alanine Aminotransferase 13 IU/L (<50); Albumin 2.4 g/dL (3.5-5.0); Albumin Globulin Ratio 0.9 (1.0-2.8); Alkaline Phosphatase 108 U/L (38-126); Blood Urea Nitrogen 6 mg/dL (9-20); Calcium 8.1 mg/dL (8.4-10.2); Carbon Dioxide 31 mmol/L (22-32); Chloride 97 mmol/L (98-107); Cholesterol 105 mg/dL (140-199); Estimated Glomerular Filt Rate > 60 mL/min (>60); Globulin 2.8 g/dL (1.7-4.1); Glucose 103 mg/dL (70-99); HDL Cholesterol 68 mg/dL (40-60); HEMOLYSIS < 15 (0-50); Potassium 3.1 mmol/L (3.4-5.1); Sodium 130 mmol/L (137-145); Total Protein 5.2 g/dL (6.3-8.2); Triglycerides 60 mg/dL (35-150)
== END ==
PROVIDERS: PCP Family Medicine; Referring Provider Family Medicine; Visit Provider Urology
DX: E83.42 Hypomagnesemia (principal); E87.6 Hypokalemia; R19.7 Diarrhea, unspecified; E87.1 Hypo-osmolality and hyponatremia
CPT/HCPCS: 36415; 80053; 80061; 85025